=== PATIENT | female | born 1950 | race Caucasian/White ===

== ENCOUNTER 2020-01-17 08:21 | Emergency (ER) | payer OTHER ==
[2020-01-17] MEDS ORDERED: ONDANSETRON 4 MG/2 ML VIAL ONE (08:44)
[2020-01-17] MEDS ORDERED: NA CHLORIDE 0.9% 1,000 ML ONE (08:44)
[2020-01-17 08:53] LABS: Absolute Lymphocytes (CBC) 1.6 K/uL (0.7-4.9); Basophils % 0.5 % (0-1.3); Hematocrit 25.2 % (36.0-45.0); Lymphocytes % 12.7 % (15.3-44.8); MPV 10.7 fL (7.6-11.3); RBC Red Blood Cell Count 2.67 M/uL (3.86-4.86)
[2020-01-17 09:00] LABS: Albumin 2.8 g/dL (3.4-5.0); Bilirubin Direct 0.1 mg/dL (0-0.2); Bilirubin Total 0.3 mg/dL (0.2-1.0); Potassium 4.4 mmol/L (3.5-5.1); Protein, Total 5.5 g/dL (6.4-8.2)
[2020-01-17] MEDS ORDERED: NA CHLORIDE 0.9% 500 ML ONE (09:02)
[2020-01-17] MEDS ORDERED: NA CHLORIDE 0.9% 250 ML ONE (09:09)
--- NOTE | 2020-01-17 09:42 | ER ---
Nurse's Notes [facility] [place] Name: Marah Lee Age: 69 yrs Sex: Female : 1950 Arrival Date: 01/17/2020 Time: 08:23 Bed 2 Private MD: Diagnosis: Rectal bleeding;Anemia, unspecified;Hypotension, unspecified;Syncope and collapse Presentation: 01/16 08:24 Coronavirus screen: Patient denies a cough. Patient denies shortness of breath or jl7 difficulty breathing. Patient denies measured and/or subjective temperature greater than 100.4F prior to today's visit. Patient denies travel on a cruise ship or to a country the [facility] currently lists as an affected area. Patient denies contact with known and/or suspected case of COVID-19. Proceed with normal triage. Ebola Screen: No symptoms or risks identified at this time. Initial Sepsis Screen: Does the patient meet any 2 criteria? Temp <36.0*C (96.8*F)) or > 38.3*C (100.9*F). Systolic BP < 90 mmHg. Mean Arterial Pressure (MAP) < 65. Yes Does the patient have a suspected source of infection? No. Patient's initial sepsis screen is negative. Risk Assessment: Do you want to hurt yourself or someone else? Patient reports no desire to harm self or others. Onset of symptoms was January 17, 2020. Care prior to arrival: Medication(s) given: Normal saline infusion, 1000 mL, IV initiated. 18 GA, in the right antecubital area. Transition of care: patient was not received from another setting of care. 08:24 Method Of Arrival: EMS: [facility] 7 08:24 Acuity: GIANCARLO 2 jl7 08:24 Chief complaint: Patient states: Pt presents via EMS with reports of syncope and rectal jr10 bleeding. Pt reports that she had a colonoscopy procedure with polyp removal on Thursday, started having bleeding at 0300 this morning. Pt is pale in appearance upon arrival. Triage Assessment: 08:24 General: Appears uncomfortable, pale in appearance. Behavior is calm, cooperative. jr10 Pain: Denies pain. Historical: - Allergies: 09:36 PENICILLINS; jr10 09:36 Iodine; jr10 09:52 SUCCINYLCHOLINE; jr10 - Home Meds: 09:52 metformin Oral [Active]; levothyroxine oral [Active]; jr10 - PMHx: 09:36 Atrial Fib; Diabetes - NIDDM; Diverticulitis; jr10 - PSHx: 09:52 Ablasion; Colonoscopy with poly removal; jr10 - Immunization history:: Adult Immunizations. - Social history:: Smoking status: unknown. - Family history:: not pertinent. - Hospitalizations: : No recent hospitalization is reported. Screenin:32 Abuse screen: Denies threats or abuse. Denies injuries from another. Nutritional jr10 screening: No deficits noted. Tuberculosis screening: No symptoms or risk factors identified. Fall Risk Fall in past 12 months (25 points). IV access (20 points). Gait- Weak (10 pts.). Assessment: 08:24 General: Appears uncomfortable, Behavior is appropriate for age. Pain: Denies pain. jr10 Neuro: Reports weakness generalized. Cardiovascular: No deficits noted. Denies chest pain. Respiratory: Denies shortness of breath. GI: Abdomen is non-distended, Rectal exam: Bleeding noted, Bowel sounds present X 4 quads. Abd is soft and non tender Reports rectal bleeding, bloody stool, nausea, Patient currently denies abdominal pain. : No deficits noted. Derm: Skin is pale. Musculoskeletal: Reports weakness in generalized pain in anterior aspect of right shoulder and posterior aspect of right shoulder and pain with ROM no deformity noted. 13:14 Reassessment: See blood transfusion documentation for additional vitals. jr10 Vital Signs: 08:24 BP 87 / 46; Pulse 86; Resp 20; Temp 95.6; Pulse Ox 97% ; Weight 77.11 kg; Pain 3/10; jl7 09:49 BP 108 / 50; Pulse 73; Resp 16; Temp 97.1; Pulse Ox 99% on R/A; jr10 12:58 BP 130 / 68; Pulse 82; Resp 16; Temp 97.9; Pulse Ox 100% on R/A; jr10 ED Course: 08:23 Patient arrived in ED. rn 08:23 Harrison Fernando MD is Attending Physician. rn 08:24 Arm band placed on right wrist. jl7 08:30 Triage completed. jl7 08:30 Inserted saline lock: 20 gauge in left wrist, using aseptic technique. jr10 08:30 Maintain EMS IV. Dressing intact. Good blood return noted. Site clean \T\ dry. Gauge \T\ jr 10 site: 18G to right AC, started via EMS [employer]. 08:34 Ernestina Cobos is Primary Nurse. jr10 08:50 Consent for blood and/or blood product transfusion explained by staff, signed by jr10 patient. 09:02 Patient has correct armband on for positive identification. Placed in gown. Bed in low mh5 position. Call light in reach. Side rails up X2. Warm blanket given. Pillow given. monitoring tech on. Pulse ox on. NIBP on. 09:02 EKG done, by ED staff, reviewed by Harrison Fernando MD. mh5 09:03 attempted transfer to [facility], pt was denied due to lack of imu bd beds,. 09:03 attempting transfer to [facility]. bd 09:36 CT Abd/Pelvis - Without Contrast In Process Unspecified. EDMS 09:52 XRAY Shoulder RIGHT 2 view In Process Unspecified. EDMS 09:53 pt accepted in transfer to [facility]. pt accepted by dr Barragan. bd 09:54 acceptance given by Yanna Snow. bd 11:27 Report handed off to CARLOS EDUARDO Murray at [facility] pending patient transfer. jr10 13:13 Patient transferred, IV remains in place. intact, No redness/swelling at site. jr10 Administered Medications: 08:30 Drug: NS 0.9% 1000 ml Route: IV; Rate: 1 bolus; Site: left wrist; jr10 11:21 Follow up: Response: No adverse reaction; IV Status: Completed infusion jr10 08:35 Drug: Zofran (Ondansetron) 4 mg Route: IVP; Site: right antecubital; jr10 09:37 Follow up: Response: No adverse reaction jr10 09:38 Not Given (Physician Discretion): NS 0.9% 500 ml IV at bolus once jl7 Medication: 08:55 Blood products: PRBCs X 2 units given. jr10 Outcome: 09:41 ER care complete, transfer ordered by . rn 13:12 Transferred by ground EMS to [facility]. jr10 13:12 Condition: improved 13:12 Instructed on the need for transfer. 13:15 Patient left the ED. jr10 Signatures: Dispatcher [employer] EDMS DirriLeigha naylor Roman, MD MD rn Martinez, Maria 5 Yenny Hennessy RN RN jl7 Ernestina Cobos RN RN jr10 Corrections: (The following items were deleted from the chart) 13:03 12:58 BP 130 / 68; Pulse 82bpm; Resp 16bpm; Pulse Ox 100% RA; jr10 jr10
--- NOTE | 2020-01-17 09:42 | EDPHYS ---
Physician Documentation [facility] [place] Name: Marah Lee Age: 69 yrs Sex: Female : 1950 Arrival Date: 01/17/2020 Time: 08:23 Bed 2 Private MD: ED Physician Harrison Fernando HPI: 01/16 08:25 This 69 yrs old Female presents to ER via Unassigned with complaints of GI rn bleed, syncope. 08:25 The patient presents to the emergency department with rectal bleeding. Onset: The rn symptoms/episode began/occurred just prior to arrival. Abdominal pain: none is appreciated. Associated signs and symptoms: Pertinent positives: syncope, Pertinent negatives: chest pain, fever. Severity of symptoms: At their worst the symptoms were moderate in the emergency department the symptoms are unchanged. The patient has not experienced similar symptoms in the past. The patient has been recently seen by a physician:. Reports had screening colonoscopy last Thursday, had 4 polyps removed, takes aspirin, reports feeling a little weak lately, but this AM, soiled herself, had large bloody bowel movement, + nausea. Reports bent over to change panties, and passed out. called 911. . Historical: - Allergies: 09:36 PENICILLINS; jr10 09:36 Iodine; jr10 09:52 SUCCINYLCHOLINE; jr10 - Home Meds: 09:52 metformin Oral [Active]; levothyroxine oral [Active]; jr10 - PMHx: 09:36 Atrial Fib; Diabetes - NIDDM; Diverticulitis; jr10 - PSHx: 09:52 Ablasion; Colonoscopy with poly removal; jr10 - Immunization history:: Adult Immunizations. - Social history:: Smoking status: unknown. - Family history:: not pertinent. - Hospitalizations: : No recent hospitalization is reported. ROS: 08:25 Constitutional: Negative for fever, chills, and weight loss, Eyes: Negative for injury, rn pain, redness, and discharge, Cardiovascular: Negative for chest pain, palpitations, and edema, Respiratory: Negative for shortness of breath, cough, wheezing, and pleuritic chest pain, Abdomen/GI: Negative for abdominal pain, and constipation MS/Extremity: Negative for injury and deformity, Skin: Negative for injury, rash, and discoloration, Neuro: Negative for headache, numbness, tingling, and seizure. Exam: 08:25 Constitutional: This is a well developed, well nourished patient who is awake, alert, rn appears pale Head/Face: Normocephalic, atraumatic. Eyes: Pale conjunctivae ENT: dry MM Cardiovascular: Regular rate and rhythm. No pulse deficits. Respiratory: No increased work of breathing, no retractions or nasal flaring. Abdomen/GI: soft, non-tender MS/ Extremity: Pulses equal, no cyanosis. Neurovascular intact. Full, normal range of motion. Equal circumference. Neuro: Awake and alert, GCS 15 10:38 ECG was reviewed by the Attending Physician. rn Vital Signs: 08:24 BP 87 / 46; Pulse 86; Resp 20; Temp 95.6; Pulse Ox 97% ; Weight 77.11 kg; Pain 3/10; jl7 09:49 BP 108 / 50; Pulse 73; Resp 16; Temp 97.1; Pulse Ox 99% on R/A; jr10 12:58 BP 130 / 68; Pulse 82; Resp 16; Temp 97.9; Pulse Ox 100% on R/A; jr10 MDM: 08:24 Patient medically screened. rn 08:39 ED course: Pt with large bloody bowel movement here, with clots, BP low, 2 units O- rn ordered for transfusion in addition to fluids. . 08:57 ED course: Hemoglobin 8.5, initiated transfer to [facility] for DrAria De Luna since he did procedure there and no GI coverage here. . 09:21 Differential diagnosis: Intestinal bleeding, bleeding form polyp removal. rn 09:40 Data reviewed: vital signs, nurses notes, lab test result(s), EKG, and as a result, I rn will admit patient. Counseling: I had a detailed discussion with the patient and/or guardian regarding: the historical points, exam findings, and any diagnostic results supporting the discharge/admit diagnosis, lab results, the need to transfer to another facility, for higher level of care, [facility] does not immediately have the required specialist. Response to treatment: the patient's symptoms have mildly improved after treatment. 09:40 ED course: BP improving with fluids/blood, accepted for transfer to IMU.. rn 01/16 08:25 Order name: Basic Metabolic Panel; Complete Time: 09:01 rn 01/16 08:25 Order name: CBC with Diff; Complete Time: 08:55 rn 01/16 08:25 Order name: Hepatic Function; Complete Time: 09:01 rn 01/16 08:25 Order name: Lipase; Complete Time: 09:01 rn 01/16 08:25 Order name: Type And Screen rn 01/16 08:45 Order name: Packed RBC Leukored EDDE 01/16 08:25 Order name: IV Saline Lock; Complete Time: 08:35 rn 01/16 08:25 Order name: EKG; Complete Time: 08:26 rn 01/16 08:25 Order name: CT Abd/Pelvis - Without Contrast; Complete Time: 10:26 rn 01/16 08:45 Order name: RBC Leukored Pheresis [facility] 01/16 09:01 Order name: XRAY Shoulder RIGHT 2 view; Complete Time: 10:26 rn 01/16 08:25 Order name: Labs collected and sent; Complete Time: 08:35 rn 01/16 08:25 Order name: EKG - Nurse/Tech; Complete Time: 09: rn EC:38 Rate is 82 beats/min. Rhythm is regular. QRS [place] is Normal. [place] interval is normal. QRS rn interval is normal. QT interval is normal. No Q waves. T waves are Normal. No ST changes noted. Clinical impression: Normal ECG. Interpreted by me. Reviewed by me. Administered Medications: 08:30 Drug: NS 0.9% 1000 ml Route: IV; Rate: 1 bolus; Site: left wrist; jr10 11:21 Follow up: Response: No adverse reaction; IV Status: Completed infusion jr10 08:35 Drug: Zofran (Ondansetron) 4 mg Route: IVP; Site: right antecubital; jr10 09:37 Follow up: Response: No adverse reaction jr10 09:38 Not Given (Physician Discretion): NS 0.9% 500 ml IV at bolus once jl7 Disposition: 01/17/20 09:[address] [facility]. Diagnosis are Rectal bleeding, Anemia, unspecified, Hypotension, unspecified, Syncope and collapse. - Reason for transfer: Higher level of care. - Accepting physician is . - Condition is Fair. - Problem is new. - Symptoms have improved. Critical care time excluding procedures: 09:40 Critical care time: Bedside Care: 25 minutes, Consultation: 5 minutes. Total time: 30 rn minutes Signatures: Dispatcher [employer] EDHarrison Mcgregor MD MD rn Yenny eHnnessy, RN RN jl7 Ernestina Cobos RN RN jr10 Corrections: (The following items were deleted from the chart) 13:15 09:41 01/17/2020 09:[address] [facility]. Diagnosis is Rectal jr10 bleeding; Anemia, unspecified; Hypotension, unspecified; Syncope and collapse. Reason for transfer: Higher level of care. Accepting physician is . Condition is Fair. Problem is new. Symptoms have improved. rn
--- NOTE | 2020-01-17 09:59 | RAD REPORT ---
EXAM DESCRIPTION: CT - Abdomen Pelvis Wo Contrast - 01/17/2020 9:36 am CLINICAL HISTORY: recent colonoscopy, GI bleed, syncope COMPARISON: No comparisons TECHNIQUE: Axial [address] imaging of the abdomen and pelvis was performed without IV contrast. No IV contrast was given because of allergy, abnormal renal function, patient refusal or physician re quest. Oral contrast was given. All CT scans are performed using dose optimization technique as appropriate and may include automated exposure control or mA/KV adjustment according to patient size. FINDINGS: No suspicious findings in the lung bases. The liver, spleen and pancreas show no suspicious findings on non-contrast imaging. Gallbladder is ab sent. No biliary tree dilatation. No hydronephrosis or suspicious renal mass. A 3.7 centimeter cyst is present in the medial upper pole left kidney. A nonobstructing 6 mm calcification present right lower pole calyx. No significant adre nal finding. Isodense renal masses and pyelonephritis cannot be excluded in the absence of IV contras t. The urinary bladder is without significant finding. Uterus is absent. Ovaries are absent or atroph ic. No adnexal mass. No stomach or small bowel abnormality seen. Minimal hiatal hernia is present. Colon is decompressed. Patient has a minimal diverticulosis pattern throughout the colon with a more mild to moderate divert iculosis pattern in the sigmoid colon. No colon wall thickening or mass. No abnormality to explain re ctal bleeding. Small mucosal level injuries or inflammatory changes can be occult on CT imaging. No free air, free fluid or inflammatory stranding. No hernia, mass or bulky lymphadenopathy. Bony degenerative changes are present. Patient has extensive postsurgical change L2-L5. IMPRESSION: Colonic diverticulosis without diverticulitis. No acute colon finding seen. Mild mucosal level injury or inflammatory change can be occult on CT imaging. Solid abdominal visceral or without suspicious finding on noncontrast imaging. Full assessment is limited is the absence of IV contrast.
--- NOTE | 2020-01-17 10:17 | RAD REPORT ---
EXAM DESCRIPTION: Shoulder Right 2 View - 01/17/2020 9:51 am CLINICAL HISTORY: fall;Pain COMPARISON: Abdomen Pelvis W Contrast dated 01/13/2020No comparisons TECHNIQUE: Internal and external rotation views of the right shoulder were obtained. FINDINGS: There is no fracture or dislocation. AC joint degenerative changes are present. Small spu rs present along the inferior margin of the acromion and the clavicle. There are capsule calcificatio ns along the superior aspect. Small calcification is seen near the greater tuberosity likely from dinorah cific tendinosis. Acromial humeral joint space is normal. Right hemithorax shows no acute finding. IMPRESSION: Shoulder joint degenerative changes are present as detailed. No fracture, dislocation or acute finding seen.
--- OUTSIDE RECORDS SUMMARY | 2020-01-17 11:01 | XMS REPORT | Clinical Summary ---
:1950 Author Organization [facility] Address [address] [place] [address] Care Team Providers Name Role Phone Wyatt Fitzgerald MD Primary Care Provider Allergies Active Allergy Reactions Severity Noted Date Comments Iodinated Contrast Media Other (See Comments) 08/15/19 na Penicillins Other (See Comments) 08/15/2019 na Succinylcholine Other (See Comments) 08/15/2019 na Medications Medication Sig Dispensed Refills Start Date End Date Status apixaban (ELIQUIS) Take 2.5 mg 0 Active 2.5 mg by mouth 2 tabletIndications: (two) times a Resume 08/25/19 day. amIODarone Take 200 mg 0 Active (PACERONE) 200 MG by mouth tablet daily. metFORMIN Take 1,000 mg 0 Active (GLUCOPHAGE) 1,000 by mouth 2 mg tablet (two) times a day with meals. glimepiride Take 2 mg by 0 Activ e (AMARYL) 2 MG mouth 2 (two) tablet times a day. SITagliptin Take 100 mg 0 Active (JANUVIA) 100 MG by mouth tablet daily. furosemide (LASIX) Take 20 mg by 0 Active 20 mg tablet mouth 2 (two) times a day. atorvastatin Take 10 mg by 0 Act jennifer (LIPITOR) 10 MG mouth daily. tablet levothyroxine Take 75 mcg 0 Acti ve (SYNTHROID) 75 mcg by mouth tablet daily. magnesium chloride Take 2 0 A ctive (SLOW-MAG) 71.5 mg tablets by tablet,delayed mouth 2 (two) release (DR/EC) times a day. potassium chloride Take 1 tablet 0 Active (KLOR-CON M10 ORAL) by mouth 2 (two) times a day. pantoprazole Take 40 mg by 0 Act jennifer (PROTONIX) 40 MG EC mouth daily. tablet sucralfate Take 1 g by 0 Active (CARAFATE) 1 gram mouth 4 tablet (four) times a day. azithromycin Take 250 mg 0 08/11/2019 Disc ontinued (ZITHROMAX) 250 MG by mouth 0 ( Stop Taking at tablet daily. Take 2 Discha rge) tablets the first day, then 1 tablet daily for 4 days. ondansetron ODT Take 1 tablet 15 tablet 0 08/19/2019 (ZOFRAN-ODT) 4 MG (4 mg total) 0 disintegrating by mouth tablet every 8 (eight) hours as needed for nausea or vomiting for up to 5 days. Active Problems Problem Noted Date Upper abdominal pain 08/15/2019 Choledocholithiasis 08/15/2019 Encounters Date Type Specialty Care Team Description 11/01/2019 Transcribe Access Edionwe, Encounter for o ther Orders Kaylene preprocedural e xamination MD Jose Luis (Primary Dx) 08/18/2019 Anesthesia Event Gastroenterology She Solano MD 08/18/2019 Surgery Gastroenterology Lee, ERCP WITH S jeneroPee ralph, Balloon sweep f or stone MD removal 08/15/2019 Hospital General Internal [place], Choledochol ithiasis (Primary Dx); - Encounter Medicine Apolol Mattson Right upper saeid drant abdominal pain 08/19/2019 KANDACE, Hellen Guidry MD Posani, Karuna, MD after 01/16/2019 Social History Tobacco Use Types Packs/Day Years Used Date Never Smoker Smokeless Tobacco: Never Used Alcohol Use Drinks/Week oz/Week Comments Not Currently Sex Assigned at Date Recorded Not on file Job Start Date Occupation Industry Not on file Not on file Not on file Travel History Travel Start Travel End No recent travel history available. Last Filed Vital Signs Vital Sign Reading Time Taken Comments Blood Pressure 135/62 08/19/2019 11:45 AM HEDIS ANALYST Pulse 62 08/19/2019 11:45 AM HEDIS ANALYST Temperature 36.8 C (98.3 F) 08/19/2019 11:45 AM HEDIS ANALYST Respiratory Rate 17 08/19/2019 11:45 AM HEDIS ANALYST Oxygen Saturation 99% 08/19/2019 11:45 AM HEDIS ANALYST Inhaled Oxygen Concentration - - Weight 72.6 kg (160 lb) 08/15/2019 3:55 PM HEDIS ANALYST Height 165.1 cm (5' 5") 08/15/2019 3:55 PM HEDIS ANALYST Body Mass Index 26.63 08/15/2019 3:55 PM HEDIS ANALYST Plan of Treatment Health Maintenance Due Date Last Done Comments DIABETIC RETINAL EYE EXAM 1950 DIABETIC FOOT EXAM 1958 URINE MICROALBUMIN 1958 BREAST CANCER SCREENING 1998 COLONOSCOPY SCREENING 1998 SHINGLES VACCINES (#1) 1998 65+ PNEUMOCOCCAL VACCINE (2 of 2 - PPSV23) 08/04/201304/05 INFLUENZA VACCINE 01/28/2020 04/05/2019 Procedures Procedure Name Priority Date/Time Associated Diagnosis Comme nts CORONAVIRUS SARS-COV Routine 11/01/2019 Encounter for other Results for 2 2:00 PM CDT preprocedural examination th is procedure are in the results section. POC GLUCOSE Routine 08/19/2019 Results for 11:47 AM HEDIS ANALYST this procedure are in the results section. POC GLUCOSE Routine 08/19/2019 Results for 7:43 AM HEDIS ANALYST this procedure are in the results section. ESTIMATED GFR Routine 08/19/2019 Results for 6:08 AM HEDIS ANALYST this procedure are in the results section. BASIC METABOLIC PANEL Routine 08/19/2019 Result s for 6:08 AM HEDIS ANALYST this procedure are in the results section. HC COMPLETE BLD COUNT Routine 08/19/2019 Result s for W/AUTO DIFF 6:08 AM HEDIS ANALYST this procedure are in the results section. POC GLUCOSE Routine 08/19/2019 Results for 3:23 AM HEDIS ANALYST this procedure are in the results section. POC GLUCOSE Routine 08/19/2019 Results for 1:06 AM HEDIS ANALYST this procedure are in the results section. POC GLUCOSE Routine 08/18/2019 Results for 8:37 PM HEDIS ANALYST this procedure are in the results section. OR FL < 1 HOUR Routine 08/18/2019 Results for 1:30 PM HEDIS ANALYST this procedure are in the results section. POC GLUCOSE Routine 08/18/2019 Results for 1:28 PM HEDIS ANALYST this procedure are in the results section. ERCP WITH STONE 08/18/2019 Choledocholithiasis REMOVAL 12:49 PM HEDIS ANALYST POC GLUCOSE Routine 08/18/2019 Results for 7:50 AM HEDIS ANALYST this procedure are in the results section. PROTHROMBIN TIME WITH Routine 08/18/2019 Result s for INR 5:50 AM HEDIS ANALYST this procedure are in the results section. PARTIAL Routine 08/18/2019 Results for THROMBOPLASTIN TIME 5:50 AM HEDIS ANALYST this pro cedure (PTT) are in the results section. HEPATIC FUNCTION Routine 08/18/2019 Results for PANEL 5:50 AM HEDIS ANALYST this procedure are in the results section. HC COMPLETE BLD COUNT Routine 08/18/2019 Result s for W/AUTO DIFF 5:50 AM HEDIS ANALYST this procedure are in the results section. POC GLUCOSE Routine 08/18/2019 Results for 3:44 AM HEDIS ANALYST this procedure are in the results section. POC GLUCOSE Routine 08/18/2019 Results for 12:23 AM HEDIS ANALYST this procedure are in the results section. POC GLUCOSE Routine 08/17/2019 Results for 8:32 PM HEDIS ANALYST this procedure are in the results section. POC GLUCOSE Routine 08/17/2019 Results for 4:17 PM HEDIS ANALYST this procedure are in the results section. POC GLUCOSE Routine 08/17/2019 Results for 12:05 PM HEDIS ANALYST this procedure are in the results section. POC GLUCOSE Routine 08/17/2019 Results for 7:37 AM HEDIS ANALYST this procedure are in the results section. ESTIMATED GFR Routine 08/17/2019 Results for 4:25 AM HEDIS ANALYST this procedure are in the results section. HEPATIC FUNCTION Routine 08/17/2019 Results for PANEL 4:25 AM HEDIS ANALYST this procedure are in the results section. BASIC METABOLIC PANEL Routine 08/17/2019 Result s for 4:25 AM HEDIS ANALYST this procedure are in the results section. HC COMPLETE BLD COUNT Routine 08/17/2019 Result s for W/AUTO DIFF 4:25 AM HEDIS ANALYST this procedure are in the results section. POC GLUCOSE Routine 08/17/2019 Results for 4:20 AM HEDIS ANALYST this procedure are in the results section. POC GLUCOSE Routine 08/17/2019 Results for 12:20 AM HEDIS ANALYST this procedure are in the results section. ECG 12-LEAD Routine 08/16/2019 Results for 11:33 PM HEDIS ANALYST this procedure are in the results section. POC GLUCOSE Routine 08/16/2019 Results for 8:11 PM HEDIS ANALYST this procedure are in the results section. POC GLUCOSE Routine 08/16/2019 Results for 4:24 PM HEDIS ANALYST this procedure are in the results section. US HEPATIC Routine 08/16/2019 Results for 12:13 PM HEDIS ANALYST this procedure are in the results section. POC GLUCOSE Routine 08/16/2019 Results for 11:43 AM HEDIS ANALYST this procedure are in the results section. POC GLUCOSE Routine 08/16/2019 Results for 7:48 AM HEDIS ANALYST this procedure are in the results section. POC GLUCOSE Routine 08/16/2019 Results for 5:33 AM HEDIS ANALYST this procedure are in the results section. TROPONIN Timed 08/16/2019 Results for 2:00 AM HEDIS ANALYST this procedure are in the results section. POC GLUCOSE Routine 08/15/2019 Results for 10:04 PM HEDIS ANALYST this procedure are in the results section. TROPONIN Routine 08/15/2019 Results for 8:34 PM HEDIS ANALYST this procedure are in the results section. CT RENAL STONE STAT 08/15/2019 Results for PROTOCOL 6:39 PM HEDIS ANALYST this procedure are in the results section. XR CHEST 1 VW STAT 08/15/2019 Results for PORTABLE 5:36 PM HEDIS ANALYST this procedure are in the results section. ECG ED PRELIMINARY Routine 08/15/2019 Results f or INTERPRETATION 5:15 PM HEDIS ANALYST this procedur e are in the results section. ESTIMATED GFR STAT 08/15/2019 Results for 5:10 PM HEDIS ANALYST this procedure are in the results section. B NATRIURETIC PEPTIDE STAT 08/15/2019 Result s for 5:10 PM HEDIS ANALYST this procedure are in the results section. LIPASE LEVEL STAT 08/15/2019 Results for 5:10 PM HEDIS ANALYST this procedure are in the results section. TROPONIN STAT 08/15/2019 Results for 5:10 PM HEDIS ANALYST this procedure are in the results section. COMPREHENSIVE STAT 08/15/2019 Results for METABOLIC PANEL 5:10 PM HEDIS ANALYST this procedu re are in the results section. PARTIAL STAT 08/15/2019 Results for THROMBOPLASTIN TIME 5:10 PM HEDIS ANALYST this pro cedure (PTT) are in the results section. PROTHROMBIN TIME WITH STAT 08/15/2019 Result s for INR 5:10 PM HEDIS ANALYST this procedure are in the results section. HC COMPLETE BLD COUNT STAT 08/15/2019 Result s for W/AUTO DIFF 5:10 PM HEDIS ANALYST this procedure are in the results section. ECG 12-LEAD STAT 08/15/2019 Results for 3:48 PM HEDIS ANALYST this procedure are in the results section. after 01/16/2019 Results Coronavirus SARS-CoV 2 (11/01/2019 2:00 PM CDT) SARS-CoV-2 source Nasopharyngeal [facility] Comment: Corrected result; previously reported as Nasopha ryngeal Swab on 11/01/2019 at 13:59 by V/AUT SARS-CoV-2 by PCR Not Detected [facility] Comment: NOT DETECTED - A negative result does not rule out the presence of PCR inhibitors in the patient specimen or assay specif ic nucleic acid in concentrations below the level of detection by the assay. INTERPRETIVE INFORMATION: 2019 Novel Coronavirus SARS- CoV-2 by PCR This test should be ordered for the detection of the 2 019 novel coronavirus SARS-CoV-2 in individuals who meet SARS-Co V-2 clinical and/or epidemiological criteria. The 2019 Novel Coronavirus SARS-CoV-2 by PCR test is f or in vitro diagnostic use under the FDA Emergency Use Authorizati on (EUA) for US laboratories certified under CLIA to perform high c omplexity tests. This test has not been FDA cleared or approved. In compliance with this authorization, please visit [email or web address] for more information and to access the applicable information s hekatelyn. Performed by [facility], [address] [place] [id number] [email or web address], Donte Singh MD, Lab. Director Specimen Performing Organization Address City/State/Zipcode Phone Number [facility] [address] [place] [address] [facility] [address] [place] [address] POC glucose (08/19/2019 11:47 AM HEDIS ANALYST)Only the most recent of21 resultswithin the time period is included. [facility] POC glucose 180 (H) 65 - 99 mg/dL [facility] Comment: [facility] Cyber Systems Administrator Name: [id number] Device ID: [id number] Chartable: RN Notified Specimen Performing Organization Address City/State/Zipcode Phone Number [facility] DEPARTMENT OF PATHOLOGY [address] [facility], [place] [address] AND GENOMIC MEDICINE [facility] [address] [facility] [place] [address] [facility] Estimated GFR (08/19/2019 6:08 AM HEDIS ANALYST)Only the most recent of3 resultswithin the time period is included. [facility] Estimated GFR 70 mL/min/1.73 [facility] Comment: m2 [facility] [employer] Units Interpretation HOS PITAL G1 >=90 Normal or high G2 60-89 Mildly decreased G3a 45-59 Mildly to moderately decreas ed G3b 30-44 Moderately to severely decre ased G4 15-29 Severely decreased G5 <15 Kidney failure The eGFR was calculated using the Chronic Kidney Disea se Epidemiology Collaboration (CKD-EPI) equation. Interpretation is based on recommendations of the National Kidney Foundation-Kidney Disease Outcomes Saeid lity Initiative (NKF-KDOQI) published in 2014. Specimen Plasma specimen Performing Organization Address [facility]/Zipcode Phone Number [facility] DEPARTMENT OF PATHOLOGY [address] [facility] [place] [address] AND GENOMIC MEDICINE [facility] [address] [facility] [place] [address] HOSPITAL CBC with platelet and differential (08/19/2019 6:08 AM HEDIS ANALYST)Only the most recent of4 resultswithin the time period is included. WBC 7.0 4.5 - 11.0 k/uL [facility] RBC 3.89 (L) 4.20 - 5.50 [facility] m/uL [facility] HGB 11.8 (L) 12.0 - 16.0 [facility] g/dL [facility] HCT 36.1 (L) 37.0 - 47.0 % [facility] MCV 92.8 82.0 - 100.0 fL [facility] MCH 30.3 27.0 - 34.0 pg [facility] MCHC 32.7 31.0 - 37.0 [facility] g/[facility] RDW - SD 52.3 37.0 - 55.0 fL [facility] MPV 12.1 (H) 6.9 - 11.0 fL [facility] Platelet count 198 150 - 400 K/uL [facility] Nucleated RBC 0.00 /100 WBC [facility] Neutrophils 55.7 39.0 - 69.0 % [facility] Lymphocytes 31.8 25.0 - 45.0 % [facility] Monocytes 9.0 0.0 - 10.0 % [facility] Eosinophils 2.4 0.0 - 5.0 % [facility] Basophils 1.0 0.0 - 1.0 % [facility] Immature granulocytes 0.1 0.0 - 1.0 % [facility] Specimen Blood Performing Organization Address City/[facility]/Zipcode Phone Number [facility] DEPARTMENT OF PATHOLOGY [id number] [place] [address] [id number] [place] [address] Basic metabolic panel (08/19/2019 6:08 AM HEDIS ANALYST)Only the most recent of2 results within the time period is included. Pathologist Sig nature Sodium 140 135 - 148 mEq/L [facility] Potassium 3.6 3.5 - 5.0 mEq/L [facility] Chloride 103 98 - 112 mEq/L [facility] CO2 24 24 - 31 mEq/L [facility] Anion gap 13@ANIO 7 - 15 mEq/L [facility] BUN 7 (L) 8 - 23 mg/dL [facility] Creatinine 0.84 0.50 - 0.90 mg/dL [facility] Glucose 148 (H) 65 - 99 mg/dL [facility] Calcium 9.4 8.8 - 10.2 mg/dL [facility] Specimen Plasma specimen Performing Organization Address [facility]/Zipcode Phone Number [facility] DEPARTMENT OF PATHOLOGY [id number] [place] [address] [address] [address] HOSPITAL [place] < 1 Hour (08/18/2019 1:30 PM HEDIS ANALYST) Specimen Narrative Performed At EXAMINATION: OR FL < 1 HOUR [facility] C-arm fluoroscopy was requested in OR. IMPRESSION: Separate operative report will be issued by the physic chrissy performing the procedure. [id number] Procedure Note Interface, Radiology Results Incoming - 08/29/2019 9:44 AM HEDIS ANALYST EXAMINATION: OR FL < 1 HOUR C-arm fluoroscopy was requested in OR. IMPRESSION: Separate operative report will be issued by the physician performing the procedure. [id number] Performing Organization Address City/State/Zipcode Phone Number [facility] [address] [place] [address] Partial thromboplastin time, activated (08/18/2019 5:50 AM HEDIS ANALYST)Only the most recent of2 resultswithin the time period is included. PTT 32.2 23.0 - 36.0 [facility] Comment: [facility] PTT therapeutic range for unfractionated heparin is HOSPITAL 61.0-112.0 seconds which corresponds to Anti-Xa 0.3-0.7 U/ml. Specimen Blood Performing Organization Address City/[facility]/Zipcode Phone Number [facility] DEPARTMENT OF PATHOLOGY [address] [place] [address] [address] [place] [address] HOSPITAL Prothrombin time with INR (08/18/2019 5:50 AM HEDIS ANALYST)Only the most recent of2 resultswithin the time period is included. Prothrombin time 14.4 11.5 - 14.5 [facility] INR 1.1 [facility] [place] Comment: [facility] International Normalized Ratio (INR) is a [facility] monitoring tool for patients who are stable on oral anticoagulant therapy. An INR of 2.0-3.0 is suggested for deep vein thrombosis/pulmonary embolism. Specimen Blood Performing Organization Address [facility] Phone Number [facility] DEPARTMENT OF PATHOLOGY [address] [place] [address] Hepatic function panel (08/18/2019 5:50 AM HEDIS ANALYST)Only the most recent of2 results within the time period is included. Pathologist Sig nature Albumin 3.5 3.5 - 5.0 g/dL [facility] Total bilirubin 0.6 0.2 - 1.2 mg/dL [facility] Bilirubin direct <0.2 0.0 - 0.3 mg/dL [facility] Alkaline phosphatase 69 35 - 104 U/L [facility] Protein 5.8 (L) 6.3 - 8.3 g/dL [facility] ALT 93 (H) 5 - 50 U/L [facility] AST 69 (H) 10 - 35 U/L [facility] Specimen Plasma specimen Performing Organization Address City/[facility]/Zipcode Phone Number [facility] DEPARTMENT OF PATHOLOGY [address] [place] [address] [address] [facility] ECG 12 lead (08/16/2019 11:33 PM HEDIS ANALYST)Only the most recent of2 resultswithin the time period is included. Pathologist Sig nature Ventricular rate 54 [facility] Atrial rate 54 [facility] [place] interval 144 [facility] QRSD interval 84 [facility] QT interval 484 [facility] QTC interval 458 [facility] P axis 1 61 [facility] QRS axis 1 14 [facility] T wave axis 92 [facility] EKG impression Sinus bradycardia-Low voltag e QRS-Cannot rule out Anterior infarct , age undetermined-Abnormal ECG-In automated comparison with ECG of 15-AUG-2019 15:48,-Minimal criteria for Anterior infarct are now pr [facility] esent- Specimen Narrative Performed At This result has an attachment that is no t available. Performing Organization Address City/State/Zipcode Phone Number [facility] MUSE [address] [place] [address] [place] Hepatic (08/16/2019 12:13 PM HEDIS ANALYST) Specimen Narrative Performed At EXAMINATION: US HEPATIC [facility] CLINICAL HISTORY: abdnormal CT- cirrho sis COMPARISON: CT abdomen pelvis without contrast from 08/15/2019 IMPRESSION: Liver: The liver is mildly enlarged measuring 15.4 cm in greatest craniocaudal dimension. There is a nonspecific coarse echotexture, however, the contour is smooth. No intrahepatic biliar y ductal dilatation or hepatic mass. Portal vein: The portal vein is normal in size and dem onstrates normal hepatopedal flow. The diameter of the po rtal vein measures 1.1 cm. Gallbladder: The patient is status post cholecystectomy. Common bile duct: Common bile duct measures 0.8 cm whi ch is prominent, however, likely within normal limits giv en cholecystectomy. Ascites: None Right pleural effusion: None [id number] Procedure Note Interface, Radiology Results Incoming - 08/16/2019 1:16 PM HEDIS ANALYST EXAMINATION: US HEPATIC CLINICAL HISTORY: abdnormal CT- cirrhos is COMPARISON: CT abdomen pelvis without c ontrast from 08/15/2019 IMPRESSION: Liver: The liver is mildly enlarged zan uring 15.4 cm in greatest craniocaudal dimension. There is a nonspecific coarse echotexture, however, the contour is smooth. No intrahepatic biliary ductal dilatation or hepatic mass. Portal vein: The portal vein is normal i n size and demonstrates normal hepatopedal flow. The diameter of the portal vein measures 1.1 cm. Gallbladder: The patient is status post cholecystectomy. Common bile duct: Common bile duct measu res 0.8 cm which is prominent, however, likely within normal limits given cholecystectomy. Ascites: None Right pleural effusion: None [facility]-[id number] Performing Organization Address City/State/Zipcode Phone Number [facility] [address] [place] [address] Troponin (08/16/2019 2:00 AM HEDIS ANALYST)Only the most recent of3 resultswithin the time period is included. Troponin 0.009 0.000 - 0.040 [place] [facility] Comment: ng/mL [facility] In patients suspected of having a myocardial infarctio n, along with all other appropriate clinical measures and actions includ ing ECG and other diagnostics as appropriate, measure Ultra TnI at 0 hrs and at 3 hrs. Myocardial infarction VERY LIKELY The 0 hr TnI level is > 0.10 ng/mL Myocardial infarction LIKELY The 0 hr TnI level is > 0.04 ng/mL and 3 hr level is i ncreased or decreased by at least 0.020 ng/mL Myocardial infarction VERY UNLIKELY Both the 0 hr and 3 hr TnI levels <= 0.04 ng/mL(within normal limits) OR 0 hr is > 0.04 ng/mL and 3 hr is increased OR decreased by less than 0.020 ng/mL Specimen Plasma specimen Performing Organization Address City/State/Zipcode Phone Number [facility] DEPARTMENT OF PATHOLOGY [address] [facility] [address] [place] [address] AND GENOMIC MEDICINE [facility] MARIEL [place]ELARDE [address] [facility] [place] [address] [facility] CT Renal Stone Protocol (08/15/2019 6:39 PM HEDIS ANALYST) Specimen Narrative Performed At EXAMINATION: CT RENAL STONE PROTOCOL [facility] CLINICAL HISTORY: Epigastric pain re cent cholecystectomy TECHNIQUE: Noncontrast images of the abdomen and pelvi s were obtained without intravenous iodinated contrast. The lack of in travenous contrast limits assessment of the solid organs. CT imaging was performed with iterative reconstruction technique and/o r automated exposure control to reduce rad iation dose. COMPARISON: None available FINDINGS: LOWER THORAX: Clear lung bases. Small left lingular calcified granul tez. Mitral an aortic annular calcifications are present. Coronary ca lcifications are seen in the left main, LAD distributions . ABDOMEN: Kidneys: 5 mm calculus is seen in the right lower pole . No hydronephrosis. A 3.4 cm simple cyst is seen in the me dial left upper pole. A tiny 2 mm focus of calcification is seen in th e left upper pole adjacent to the lateral aspect of the si mple cyst, could be calyceal or vascular, however n o hydronephrosis. Liver: Mildly lobulated hepatic contour. Borderline hy perdense appearance of the liver, could be second yunior to amiodarone. Gallbladder: Cholecystectomy. Tiny calculi (at least 3 ) are seen in the distal CBD measuring up to 4 mm. CBD deborah sures 11 mm. Spleen: Spleen is normal in size. Small calcified gran ulomas are seen. Prominent perisplenic varices/splenorena l shunt seen. Pancreas: The pancreas is unremarkable. Adrenal Glands: The adrenal glands are u nremarkable. Abdominal Aorta: Aortoiliac calcificatio ns. Nodes: A few prominent retroperitoneal lymph nodes are noted which are nonspecific. Bowel: Small hiatal hernia. No bowel obstruction or in flammation. Diverticulosis without evidence of diverticulitis. Lonnie endix is borderline in size, however without significant periap pendiceal stranding to suggest acute appendicitis. Ascites: No ascites or fluid collections . PELVIS: Pelvis: Urinary bladder is unremarkable. Hysterectomy. Bones: Degenerative changes of the osseous structures. No suspicious lesions. Postoperative changes from L2-L5 related to p osterior decompression and instrument fusion. The right L5 mcconnell spedicular screw is fractured. Prominent endplate scleros is at T10-11. L2 compression fracture with 30% body height l oss and vertebral augmentation changes. IMPRESSION: 1.Cholecystectomy with tiny calculi in the distal CBD compatible with choledocholithiasis. 2.Mildly lobulated hepatic contour, prominent perisple cheo varices, and possible splenorenal shunt noted, suboptimally evaluat ed on noncontrast exam. CT with contrast or abdominal ultrasound may be of benefit for further evaluation. 3.Right nonobstructive nephrolithiasis. 4.Small hiatal hernia. Diverticulosis wi thout diverticulitis. 5.Postoperative changes of the lower lumbar spine with a fractured screw at L5. [id number] Procedure Note Hm Interface, Radiology Results Incoming - 08/15/2019 7:08 PM HEDIS ANALYST EXAMINATION: CT RENAL STONE PROTOCOL CLINICAL HISTORY: Epigastric pain rece nt cholecystectomy TECHNIQUE: Noncontrast images of the abd omen and pelvis were obtained without intravenous iodinated contrast. The lack of intravenous contrast limits assessment of the solid organs. CT imaging was performed with iterative reconstruction technique and/o r automated exposure control to reduce rad iation dose. COMPARISON: None available FINDINGS: LOWER THORAX: Clear lung bases. Small left lingular ca lcified granuloma. Mitral an aortic annular calcifications are present. Coronary calcifications are seen in the left main, LAD distributions. ABDOMEN: Kidneys: 5 mm calculus is seen in the ri ght lower pole. No hydronephrosis. A 3.4 cm simple cyst is seen in the medial left upper pole. A tiny 2 mm focus of calcification is seen in the left upper pole adjacent to the lateral aspect of the simple cyst, could be calyceal or vascular, however n o hydronephrosis. Liver: Mildly lobulated hepatic contour. Borderline hyperdense appearance of the liver, could be secondary to amiodarone. Gallbladder: Cholecystectomy. Tiny calcu li (at least 3) are seen in the distal CBD measuring up to 4 mm. CBD measures 11 mm. Spleen: Spleen is normal in size. Small calcified granulomas are seen. 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 Pancreas: The pancreas is unremarkable. Adrenal Glands: The adrenal glands are u nremarkable. Abdominal Aorta: Aortoiliac calcificatio ns. Nodes: A few prominent retroperitoneal l ymph nodes are noted which are nonspecific. Bowel: Small hiatal hernia. No bowel obs truction or inflammation. Diverticulosis without evidence of diverticulitis. Appendix is borderline in size, however without significant periappendiceal stranding to suggest acute appendicitis. Ascites: No ascites or fluid collections . PELVIS: Pelvis: Urinary bladder is unremarkable. Hysterectomy. Bones: Degenerative changes of the osseo us structures. No suspicious lesions. Postoperative changes from L2-L5 related to posterior decompression and instrument fusion. The right L5 transpedicular screw is fractured. Prominent endplate sclerosis at T10-11. L2 compression fracture with 30% body height loss and vertebral augmentation changes. IMPRESSION: 1.Cholecystectomy with tiny calculi in t he distal CBD compatible with choledocholithiasis. 2.Mildly lobulated hepatic contour, prom inent perisplenic varices, and possible splenorenal shunt noted, suboptimally evaluated on noncontrast exam. CT with contrast or abdominal ultrasound may be of benefit for further evaluation. 3.Right nonobstructive nephrolithiasis. 4.Small hiatal hernia. Diverticulosis wi thout diverticulitis. 5.Postoperative changes of the lower lum bar spine with a fractured screw at L5. [facility]-[id number] Performing Organization Address City/[email or web address] Phone Number [employer] [address] [place] [address] XR Chest 1 Vw Portable (08/15/2019 5:36 PM HEDIS ANALYST) Specimen Narrative Performed At EXAMINATION: [facility] CHEST 1 [facility]W [facility] CLINICAL H[facility]ORY: chest pain COMPARISON: Most Recent Prior at [facility] IMPRESSION: Mild elevation right hemidiaphragm. Heart enlarged. Th e pulmonary vascular is normal. No focal infiltrates or effusions. Metallic pellet overlying the lower thoracic spine on th e left. [facility]-[id number] Procedure Note Interface, Radiology Results Incoming - 08/15/2019 5:43 PM HEDIS ANALYST EXAMINATION: XR CHEST 1 VW PORTABLE CLINICAL HISTORY: chest pain COMPARISON: Most Recent Prior at [facility] IMPRESSION: Mild elevation right hemidiaphragm. Hear t enlarged. The pulmonary vascular is normal. No focal infiltrates or effusions. Metallic pellet overlying the lower thoracic spine on the left. [facility]-[id number] Performing Organization Address [facility] Phone Number [employer] [address] [place] [address] ECG ED Preliminary Interpretation - Not an Order (08/15/2019 5:15 PM HEDIS ANALYST) Narrative Performed At Apollo Cooper III, MD 08/16/19 7:44 PM ECG ED Preliminary Interpretation - Not an Order Performed by: Apollo Cooper III, MD Authorized by: Apollo Cooper III, M D ECG reviewed by ED Physician in the abse nce of a adjuster leader: yes Interpretation: Interpretation: normal Rate: ECG rate: 69 ECG rate assessment: normal Rhythm: Rhythm: sinus rhythm Ectopy: Ectopy: none QRS: QRS axis: Normal QRS intervals: Normal Conduction: Conduction: normal ST segments: ST segments: Normal T waves: T waves: normal B natriuretic peptide (08/15/2019 5:10 PM HEDIS ANALYST) Pathologist Sig nature BNP 34 0 - 100 pg/mL [facility] Specimen Blood Performing Organization Address [facility] Hospitalconm Phone Number [facility] DEPARTMENT OF PATHOLOGY [address] [place] [address] Lipase level (08/15/2019 5:10 PM HEDIS ANALYST) Pathologist Sig nature Lipase 47 13 - 60 U/L [facility] Specimen Plasma specimen Performing Organization Address [facility] Phone Number [facility] DEPARTMENT OF PATHOLOGY [address] [place] [address] Comprehensive metabolic panel (08/15/2019 5:10 PM HEDIS ANALYST) Sodium 138 135 - 148 [facility] mEq/L [facility] Potassium 4.4 3.5 - 5.0 [facility] mEq/L [facility] Chloride 96 (L) 98 - 112 mEq/L [facility] CO2 24 24 - 31 mEq/L [facility] Anion gap 18@ANIO (H) 7 - 15 mEq/L [facility] BUN 20 8 - 23 mg/dL [facility] Creatinine 0.99 (H) 0.50 - 0.90 [facility] mg/dL [facility] Glucose 171 (H) 65 - 99 mg/dL [facility] Calcium 10.6 (H) 8.8 - 10.2 [facility] mg/dL [facility] Protein 8.1 6.3 - 8.3 g/dL [facility] Albumin 4.7 3.5 - 5.0 g/dL [facility] A/G ratio 1.4 0.7 - 3.8 [facility] Alkaline phosphatase 105 (H) 35 - 104 U/L [facility] AST 379 (H) 10 - 35 U/L [facility] ALT 102 (H) 5 - 50 U/L [facility] Total bilirubin 0.6 0.2 - 1.2 [facility] mg/dL [facility] Specimen Plasma specimen Performing Organization Address City/State/Zipcode Phone Number [facility] DEPARTMENT OF PATHOLOGY [address] [facility] [address] AND GENOMIC MEDICINE [facility] [address] [facility] [address] HOSPITAL after 01/16/2019 Insurance Payer Benefit Plan / Subscriber ID Effective Phone Address T ype Group Dates [facility] xxxxxxxxxx [facility] Commercial INSURANCE INSURANCE nt MEDICARE MEDICARE PART xxxxxxxxxxx 2013-[place], [place] Medicare A AND B nt Advance Directives For more information, please contact: [phone] Type Date Recorded Patient Network Systems Analyst Explanati on Advance Directives, 08/15/2019 5:34 PM HAS LIVIN G WILL AND POA Living Will and DOES NOT KNOW LO CATION Medical Power of Director Music Advance Directives, 08/22/2019 1:41 PM MPOA - Living Will and Medical Power of Director Music
--- OUTSIDE RECORDS SUMMARY | 2020-01-17 11:03 | XMS REPORT | Continuity of Care Document ---
:1950 Author Organization [employer] Care Team Providers Name Role Phone [employer] Unavailable Un available Problems Problem Status Onset Classification Date Comments Sourc e Date Reported Personal history of 01/13/2020 [facility] colonic polyps 020 Atrial fibrillation Resolved Problem 01/13/2020 HAD CARDI AC [facility] (disorder) 019 ABLATION SACROILIITIS Active Memoria l 018 [place] Low back pain Active Problem 12/26/2017 Data MH Or tho (disorder) 014 migrated and Spine from [employer] on 02/20/15. Pain of truncal Active Problem 12/26/2017 Data Ortho structure (finding) 014 migrated and Spine from [employer] on 02/20/15. LOW BACK PAIN Active Condition 05/03/2014 Misch er 014 Neuro THORACIC PAIN Active Condition 05/03/2014 Misch er 014 Neuro CLOSED FRACTURE OF Active Condition 05/03/2014 Mischer LUMBAR VERTEBRA 014 Neur o WITHOUT MENTION OF SPINAL CORD INJURY 15 FOOT FALL Active [facility] s [address] [place] [address] RIB FXS, TP FXS Active [facility] exas [address] [place] [address] Arthritis (disorder) Active Problem 12/26/2017 [facility], Ortho and Spine, OPID [place] Diverticulitis Active Problem 12/26/2017 O rtho (disorder) and Spine Hearing loss (finding) Active Problem 12/26/2017 [facility] Spine Hypercholesterolemia Active Problem 12/26/2017 [facility] (disorder) [facility], Ortho and Spine, OPID [place] Kidney stone Resolved Problem 12/26/2017 [facility] (disorder) [facility], Ortho and Spine, OPID [place] Neuropathy (disorder) Active Problem 12/26/2017 [facility], Ortho and Spine, OPID [place] Diabetes mellitus Active Problem 01/13/2020 [facility] (disorder) [facility], Ortho and Spine,[facility]ID [place] Diverticulosis of Active Problem 01/13/2020 [facility] colon Bilateral lower limb Active Problem 01/13/2020 [facility] edema Steatosis of liver Active Problem 01/13/2020 [facility] (disorder) History of Active Problem 01/13/2020 [facility] diverticulitis (situation) History of polyp of Active Problem 01/13/2020 [facility] colon (situation) Hypothyroidism Active Problem 01/13/2020 [facility] ,[facility] (disorder) [facility], Ortho and Spine,[facility] [place] [place] Sleep apnea (finding) Active Problem 01/13/2020 [facility] FX EIGHT/MORE Active Cristobal as RIB-CLOSED [facility] Center Medications Medication Details Route Status Patient Ordering Order Source Instructions Provider Date [facility] Medication 600 mL, Soln-IV, Inactive 01/10/ [facility] IV, Once, first 2020 dose 01/11/20 9:26:00 CDT, stop date 01/11/20 9:26:00 CDT propofol 50 mg = 5 mL, Inactive 01/10/ [facility] Emulsion, IV, 2019 Once, first dose 01/11/20 9:08:00 CDT, stop date 01/11/20 9:08:00 CDT propofol 100 mg = 10 mL, Inactive 01/10/ [facility] Emulsion, IV, 2019 Once, first dose 01/11/20 9:04:00 CDT, stop date 01/11/20 9:04:00 CDT propofol 100 mg = 10 mL, Inactive 01/10/ [facility] Emulsion, IV, 2019 Once, first dose 01/11/20 9:00:00 CDT, stop date 01/11/20 9:00:00 CDT lidocaine 30 mg = 1.5 mL, Inactive 01/10/ [facility] Injection, IV, 2019 Once, first dose 01/11/20 8:56:00 CDT, stop date 01/11/20 8:56:00 CDT propofol 100 mg = 10 mL, Inactive 01/10/ [facility] Emulsion, IV, 2019 Once, first dose 01/11/20 8:56:00 CDT, stop date 01/11/20 8:56:00 CDT LR 1,000 mL 1,000 mL, IV, 30 Inactive 01/10/ [facility] mL/hr, start 201901/11/20 7:27:00 CDT, 1.88, m2 Lidocaine 2% 0.2 0.2 mL, Inactive 01/10/ [facility] mL IV Start Injection, 2019 [[facility]] Subcutaneous, Once PRN for other (see comment), first dose 01/11/20 7:27:00 CDT furosemide 40 mg 40 mg = 1 tabs, Active 01/06/ [facility] oral tablet Oral, Daily, BLE 2019 EDEMA Metformin 1,000 mg, Oral, Active [facility] BID, DM 2020 Thyroxine 75 mcg, Oral, Active 01/06/ [facility] Daily, 2020 HYPOTHYROIDISM sitagliptin 100 100 mg = 1 tabs, Active 01/06/ [facility] MG Oral Tablet Oral, Daily, DM 2020 [Januvia] glimepiride 4 mg 4 mg = 1 tabs, Active [facility] oral tablet Oral, BID, DM 2019 atorvastatin 10 10 mg = 1 tabs, Active 01/06/ [facility] mg oral tablet Oral, Daily, 2020 HIGH CHOL Acetaminophen 10 Notes: Infuse Inactive Ortho MG/ML Injectable over 15 minutes 2018 and Solution Do not exceed Spine 4gm/day of acetaminophen MEDICATION WASTE Product Size: 1000 mg Product Wasted: ___ mg Lactated Ringers 1,000 mL, Rate: No Longer 12/23 Ortho IV 1,000 mL 125 ml/hr, Active 2017 and Infuse over: 8 Spine hr, Route: IV, Dosing Weight 71.818 kg, Total Volume: 1,000, Start date: 12/23/17 11:32:00 CDT, Duration: 30 day, Stop date: 01/22/18 11:31:00 CDT, 1.87, m2 Ondansetron Notes: (Same as: No Longer 12/23/ M H Ortho Zofran ODT) Active 2017 and Spine Hydromorphone Notes: Same as No Longer 12/23/ M H Ortho Dilaudid Active 2017 and Spine Acetaminophen 325 Notes: Do not No Longer Ortho MG / Hydrocodone exceed 4gm/day Active 2017 and Bitartrate 10 MG of Spine Oral Tablet acetaminophen. (Same as: [place] 325/10) Solu-Medrol 125 mg, Route: Inactive O rtho IVP, Drug form: 2018 and INJ, ONCE, Spine Dosing Weight 71.364, kg, Start date: 12/23/17 10:04:00 CDT, Stop date: 12/23/17 10:04:00 CDT Famotidine 20 mg, Route: Inactive Ort ho IVP, ONCE, 2018 and Dosing Weight Spine 71.364, kg, Start date: 12/23/17 10:04:00 CDT, Stop date: 12/23/17 10:04:00 CDT Diphenhydramine 25 mg, Route: Inactive H Ortho IVP, ONCE, 2018 and Dosing Weight Spine 71.364, kg, Start date: 12/23/17 10:04:00 CDT, Stop date: 12/23/17 10:04:00 CDT Saline Flush 0.9% Notes: Same as: No Longer 11/28 Ortho BD Posiflush Active 2017 and Sterile Spine Lactated Ringers 1,000 mL, Rate: Inactive Ortho IV 1,000 mL 125 ml/hr, 2018 and Infuse over: 8 Spine hr, Route: IV, Dosing Weight 71.364 kg, Total Volume: 1,000, Start date: 12/23/17 10:03:00 CDT, Duration: 30 day, Stop date: 01/22/18 10:02:00 CDT, 1.86, m2 thyroid (LONG TERM) 180 180 mg = 1 tab, Active Ortho MG Oral Tablet PO, Daily, 0 2017 and [[place] Thyroid] Refill(s) Spine Metformin 1,000 mg = 2 Active Ortho hydrochloride 500 tab, PO, 2018 and MG Oral Tablet Bedtime, # 60 Spi ne tab, 0 Refill(s) LIDODERM 5 % PTCH apply to the No Longer affected area Active 2013 Neuro 12h on 12h off per 24h period prn pain. CYCLOBENZAPRINE 1 tab po q8h prn Active HCL 10 MG TABS muscle spasms 2013 C[place]ric ro GLIPIZIDE-METFORM Active r IN HCL TABS 2013 Neuro GLIMEPIRIDE TABS Active 2013 Neuro CRESTOR TABS Active 2013 Neuro CELEBREX CAPS Active 2013 Neuro BABY ASPRIN Active 2013 Neuro ARMOUR THYROID Active TABS 2013 Neuro CYCLOBENZAPRINE 1 tab po q8h prn No Longer 03/01 HCL 10 MG TABS muscle spasms Active 2013 [facility] ro Acetaminophen 325 1 tab, PO, Q4H, Active [facility] MG / Hydrocodone Pain Score 1-3, 2013 Medical Bitartrate 10 MG # 30 tab, [address] Oral Tablet Refill(s) Metformin Notes: (Same as: No Longer [facility] Glucophage) Active 2013 Medical Take with meal Center Glyburide Notes: (Same as: No Longer [facility] Micronase, Active 2013 Medical Diabeta) Take Center with meals. Metformin Notes: Same as [place] Longer [place] Glucophage Active 2013 [facility] Insulin, Regular, 60 units) No Longer [facility] Pork Stable for 28 Active 2013 Medical days at room Center temperature Expires in days from Da te Flexeril Notes: (Same As: No Longer [place] Flexeril) Active 2013 Medical [facility] Diphenhydramine Notes: (Same as: No Longer 01/15 [facility] Benadryl) Active 2013 [facility] Insulin, Regular, 60 units) No Longer [facility] Pork Stable for 28 Active 2013 Medical days at room Center temperature Expires in days from Da te Metformin 1.5 tab, Route: Inactive [place] hydrochloride PO, QPM, Dosing 2013 Me dical 1000 MG Oral Weight 88.636, Cent er Tablet kg, Start date: 01/14/14 17:00:00, Duration: 30 day, Stop date: 02/12/14 17:00:00 Morphine Notes: (Same Inactive [facility] as:MORPhine 2013 Medical Sulfate) Center Morphine Notes: (Same Inactive [facility] as:MORPhine 2013 Medical Sulfate) Center Amaryl Notes: (Same as: Inactive Cristobal as Amaryl) 2013 [facility] [place] Thyroid 100 mg, Route: No Longer [place] PO, Drug form: Active 2013 Medical TAB, Daily, Center Dosing Weight 88.636, kg, Start date: 01/14/14 9:00:00, Duration: 30 day, Stop date: 02/12/14 9:00:00 Glyburide 4 mg, Route: PO, No Longer [place] Drug form: TAB, Active 2013 Medical BID, Dosing Center Weight 88.636, kg, Start date: 01/14/14 9:00:00, Duration: 30 day, Stop date: 02/12/14 17:00:00 Metformin 1,000 mg, Route: Inactive [place] PO, Drug form: 2013 Medical TAB, Daily, Center Dosing Weight 88.636, kg, Start date: 01/14/14 9:00:00, Duration: 30 day, Stop date: 02/12/14 9:00:00 Insulin, Regular, 60 units) No Longer [facility] Pork Stable for 28 Active 2013 Medical days at room Center temperature Expires in days from Da te Dextrose 50% 12.5 gm, 25 mL, No Longer [facility] Syringe Route: IVP, Drug Active 2013 Medical Form: INJ, Center Dosing Weight 88.636, kg, PRN, PRN Blood Glucose Results, Start date: 01/14/14 8:26:00, Duration: 30 day, Stop date: 02/13/14 8:25:00 Glucagon 1 mg, Route: IM, Inactive [place] Drug form: 2013 Medical PDR/INJ, PRN, Center Dosing Weight 88.636, kg, PRN Blood Glucose Results, Start date: 01/14/14 8:26:00, Duration: 30 day, Stop date: 02/13/14 8:25:00 [place] Thyroid Notes: (Same As: No Longer [facility] [place] Thyroid, Active 2013 Medical S-P-T) Center Ketorolac 4 days Inactive [place] [address] [facility] Center celecoxib Notes: NSAID. No Longer Cristobal as Please check Active 2013 Medical indication. Not Center for seizure. (Same As: CeleBREX ) Acetaminophen 325 1 tab, Route: Inactive [facility] MG / Hydrocodone PO, Dosing 2013 [facility] Bitartrate 10 MG Weight 81.818, Center Oral Tablet kg, ONCE, Start [[place] 10] date: 01/13/14 19:35:00, Stop date: 01/13/14 19:35:00 Enoxaparin Notes: (Same as: No Longer [facility] Lovenox) Active 2013 [facility] [place] Thyroid 100 mg, PO, Active [place] Daily, 0 2013 Medical Refill(s) [facility] celecoxib 100 MG Special Active [place] Oral Capsule Instructions: 2013 Medic al [Celebrex] prn [facility] Rosuvastatin 5 mg = 1 tab, Active [place] calcium 5 MG Oral PO, Bedtime, 0 2013 Medical Tablet [Crestor] Refill(s) Cente r Glyburide 4 mg, PO, BID, 0 [place] Refill(s) 2013 [facility] Metformin Special Active [facility] Instructions: 2014 Medical 1,000mg in the Center mornig and 1500 mg in the evening iodixanol Special Inactive [facility] Instructions: 2014 Medical Weight = 75 - Center 94kg -- "To be infused by Radiology Staff ONLY" Bisacodyl Notes: (Same As: No Longer [facility] Dulcolax, Active 2013 Medical Correctol) (Do Center Not Crush) "Do Not Crush" Docusate Notes: (Same as: No Longer [place] Colace) (Do Not Active 2013 Medical Crush) [facility] Acetaminophen 325 Notes: Do not No Longer [facility] MG / Hydrocodone exceed 4gm/day Active 2013 Medical Bitartrate 10 MG of Center Oral Tablet acetaminophen. (Same as: [place] 325/10) Allergies, Adverse Reactions, Alerts Substance Category Reaction Severity Reaction Status Date Comments S ource type Reported PENICILLIN Drug PENICILLIN Mischer allergy 4 Neuro penicillins< Assertion hives Drug Active Data Ortho sup>1</sup> allergy 4 migrated and from [employer] [facility] on 02/19/15. Originally documented as PENICILLIN . iodine Assertion Drug Active Ort ho allergy and Spine penicillins Assertion Drug Active [facility] allergy [place] penicillin Assertion Rash Drug Active LONG TERM I allergy succinylchol Assertion Drug Active [facility] ine allergy iodinated Assertion Drug Active [facility] radiocontras allergy t dyes Immunizations No Data Provided for This Section Results Order Name Results Value Reference Date Interpretation Comments Jennifer rce Range LABORATORY Blood 124 74 - 106 01/10 [facility] Glucose, /2020 Capillary HEMATOLOGY Lymphocytes 23.4 20.0 - 01/14 [place] 40.0 [facility] HEMATOLOGY Eosinophils 2.0 0.0 - 4.0 01/14 [facility] HEMATOLOGY Segs 57.6 45.0 - 01/14 75.0 [facility] HEMATOLOGY Monocytes 16.3 2.0 - 12.0 01/14 [facility] HEMATOLOGY RBC Morph Normal 01/14 [facility] (01/14/14 5:20 AM) [facility] HEMATOLOGY Basophils 0.7 0.0 - 1.0 01/14 [facility] HEMATOLOGY Large Plt Slight None Seen 01/14 [facility] *ABN* [facility] (01/14/14 5:20 AM) [facility] HEMATOLOGY Eosinophils # 0.1 0.0 - 0.5 01/14 [facility] HEMATOLOGY Segs-Bands # 3.5 1.5 - 8.1 01/14 [facility] HEMATOLOGY Lymphocytes # 1.4 1.0 - 5.5 01/14 [facility] HEMATOLOGY Monocytes # 1.0 0.0 - 0.8 01/14 [facility] HEMATOLOGY Hgb 11.5 12.0 - 01/14 [place] 16.0 [facility] HEMATOLOGY MCHC 33.5 32.0 - 01/14 [place] 36.0 [facility] HEMATOLOGY MCH 30.4 27.0 - 01/14 [place] 31.0 [facility] HEMATOLOGY MCV 90.7 81.0 - 01/14 99.0 [facility] HEMATOLOGY Hct 34.3 36.0 - 01/14 [place] 48.0 [facility] HEMATOLOGY RDW 13.9 11.5 - 01/14 [place] 14.5 [facility] HEMATOLOGY Platelet 140 133 - 450 01/14 [facility] HEMATOLOGY MPV 10.6 7.4 - 10.4 01/14 [facility] HEMATOLOGY WBC 6.1 3.7 - 10.4 01/14 [facility] HEMATOLOGY RBC 3.78 4.20 - 01/14 5.40 [facility] CHEM PANEL Globulin 2.7 2.0 - 4.0 01/14 [facility] CHEM PANEL A/G Ratio 1.3 0.7 - 1.6 01/14 [facility] CHEM PANEL B/C Ratio 19 6 - 25 01/14 [facility] CHEM PANEL AGAP 11.6 10.0 - 01/14 20.0 [facility] CHEM PANEL Bili Total 0.5 0.2 - 1.3 01/14 [facility] CHEM PANEL Total Protein 6.2 6.4 - 8.4 01/14 [place] [facility] CHEM PANEL Albumin Lvl 3.5 3.5 - 5.0 01/14 [facility] CHEM PANEL Alk Phos 73 39 - 136 01/14 [facility] CHEM PANEL ALT 42 0 - 65 01/14 [facility] CHEM PANEL AST 56 0 - 37 01/14 [facility] CHEM PANEL eGFR 78 01/14 [facility]sup[facility]sup[facility] Comment: The Center eGFR is calculated using the CKD-EPI formula. In most young, healthy individuals the eGFR will be >90 mL/min/1.73m2 . The eGFR declines with age. An eGFR of 60-89 may be normal in some populations, particularly the elderly, for whom the CKD-EPI formula has not been extensively validated. Use of the eGFR is not recommended in the following populations:& lt;br/>
I ndividuals with unstable creatinine concentration s, including patients and those with serious co-morbid conditions.<b r/>
Patie nts with extremes in muscle mass or diet.

The data above are obtained from the National Kidney Disease Education Program (NKDEP) which additionally recommends that when the eGFR is used in patients with extremes of body mass index for purposes of drug dosing, the eGFR should be multiplied by the estimated BMI. CHEM PANEL Sodium Lvl 137 135 - 145 01/14 [facility] CHEM PANEL Potassium Lvl 4.6 3.5 - 5.1 01/14 [place] [facility] CHEM PANEL BUN 15 7 - 22 01/14 [facility] CHEM PANEL Creatinine 0.8 0.5 - 1.4 01/14 [facility] Center CHEM PANEL Glucose Lvl 258 70 - 99 01/14 <sup>2</sup>I nterpretive Medical Data: Adult Center reference range values reflect the clinical guidelines
of the [place] [employer]. CHEM PANEL Chloride Lvl 102 95 - 109 01/14 [facility] Center CHEM PANEL CO2 28 24 - 32 01/14 [facility] CHEM PANEL Calcium Lvl 8.6 8.5 - 10.5 01/14 [facility] HEMATOLOGY [place] 0.6 01/14 [facility] HEMATOLOGY Angle 77 64 - 80 01/14 [facility] HEMATOLOGY K-time 1.1 0.6 - 2.3 01/14 [facility] HEMATOLOGY R-time 0.7 0.4 - 0.7 01/14 [facility] HEMATOLOGY ACT (TEG) 113 86 - 118 01/14 [facility] HEMATOLOGY G-value 11.4 5.0 - 11.6 01/14 [facility] HEMATOLOGY Max Amp 70 52 - 71 01/14 [facility] HEMATOLOGY Rapid TEG Citrated 01/14 [facility] Sample Type Medical Blood Center HEMATOLOGY Estimated % 1.7 0.0 - 7.5 01/14 [facility] CHEM PANEL Lactic Acid 1.5 0.5 - 2.2 01/14 s [facility] HEMATOLOGY Platelet 153 133 - 450 01/14 [facility] HEMATOLOGY MPV 10.2 7.4 - 10.4 01/14 [facility] HEMATOLOGY RDW 13.3 11.5 - 01/14 14.5 [facility] HEMATOLOGY MCHC 34.5 32.0 - 01/14 [facility] 36.0 [facility] HEMATOLOGY MCV 89.2 81.0 - 01/14 99.0 Medical Center HEMATOLOGY MCH 30.7 27.0 - 01/14 [facility] 31.0 /2013 [facility] HEMATOLOGY WBC 9.4 3.7 - 10.4 01/14 [facility] HEMATOLOGY Hct 34.2 36.0 - 01/14 48.0 [facility] HEMATOLOGY Hgb 11.8 12.0 - 01/14 16.0 [facility] HEMATOLOGY RBC 3.84 4.20 - 01/14 [place] 5.40 /2013 [facility] HEMATOLOGY Anisocyte 1+ None Seen 01/14 [facility] *ABN* [facility] (01/13/14 8:05 PM) [facility] HEMATOLOGY Segs-Bands # 7.5 1.5 - 8.1 01/14 [facility] HEMATOLOGY Plt Morph Normal 01/14 [facility] (01/13/14 8:05 PM) [facility] HEMATOLOGY Segs 80.3 45.0 - 01/14 75.0 [facility] HEMATOLOGY Lymphocytes 12.5 20.0 - 01/14 40.0 [facility] HEMATOLOGY Basophils 0.2 0.0 - 1.0 01/14 [facility] HEMATOLOGY Eosinophils 2.2 0.0 - 4.0 01/14 [facility] HEMATOLOGY Monocytes 4.8 2.0 - 12.0 01/14 [facility] HEMATOLOGY Lymphocytes # 1.2 1.0 - 5.5 01/14 [facility] HEMATOLOGY Monocytes # 0.5 0.0 - 0.8 01/14 [facility] HEMATOLOGY Basophils # 0.0 0.0 - 0.2 01/14 [facility] HEMATOLOGY Eosinophils # 0.2 0.0 - 0.5 01/14 [facility] Pathology Reports No Data Provided for This Section Diagnostic Reports Report Value Date Source Spine lumbar 2 or 3 EXAM: XR LUMBAR SPINE 2 VIEWS 05/03/2014 BRANDON [place] views DX DATE: 2014-05-03 0840 hours INDICATION: 724.2 Lumbago , 805.4 Closed Fracture of Lumbar Vertebra without Mention of Spinal Cord Injury COMPARISON: March 01, 2014 TECHNIQUE: AP and lateral radiographs of the l umbar spine FINDINGS: 5 lumbar-type, non rib-bearing vertebral bodies are identified. An L3 compression fracture with approximately 20-25% central vertebral body height loss is not significant changed in height or a lignment in the interim by m y measurement. Remaining vertebral body heights are overall preserved. There is straightening of lumbar lordosis with trace degenerative anterolisthesis of L3 on L4, unchange d. There is mild disc height loss at the lower lumbar spine. Prior laminectomy at L5-S1, and multilevel facet osteoarthrosis are again noted. IMPRESSION: No significant i nterval change in height or alignment of the L3 vertebral body compression fracture. Spine lumbar 2 or 3 EXAM: XR LUMBAR SPINE 2 VIEWS 03/01/2014 OPID [place] views DATE: 03/01/2014 at 0739 hours INDICATION: Closed Fracture of Lumbar Vertebra without Mention of Spinal Cord Injury . COMPARISON: CT abdomen from 01/13/2014 TECHNIQUE: AP, coned lateral and lateral radio graphs of the lumbar spine DISCUSSION: 5 lumbar-type, n onrib-bearing vertebral bodies are identified. A superior endplate compression fracture seen at the L3 vertebral body. When compared to the CT from 01/13/2014, there is 15% lo ss of height of L3. Grade 1 anterolisthesis at the L3-L4 level. The patient has had prior L5 laminectomy. No soft tissue abnormality is identified. IMPRESSION: 1. L3 superior endplate compression fracture wit h 15% height loss. 2. Grade 1 anterolisthesis at the L3-L4 level. Chest 1view PORTABLE CHEST 2014-01-16 08:22:00 01/16/2014 [facility] COMPARISON: Yesterday CLINICAL INDICATION: Trauma DISCUSSION: Lungs are withou t airspace disease. No pleural effusions or pneumothorax. Cardiac silhouette and mediastinum are unchanged. A pellet is again seen overlying left lower thorax. IMPRESSION: No significant interval change. Chest 1view PORTABLE CHEST 2014-01-15 10:33:00 01/15/2014 [facility] COMPARISON: Yesterday CLINICAL INDICATION: Trauma DISCUSSION: Minimal platelik e atelectasis is seen within right midlung. No pleural effusions or pneumothorax. A pellet is again seen overlying left lower thorax. Chest 1view PORTABLE CHEST 2014-01-14 14:57:00 01/14/2014 [facility] COMPARISON: Yesterday CLINICAL INDICATION: Trauma DISCUSSION: Platelike atelec tasis is seen within retrocardiac regions. Remainder of lungs are without airspace disease. No pleural effusions or pneumothorax. Cardiac silhouette and mediastinum are withi n normal limits. A metallic pellet overlies left lower thorax. IMPRESSION: Subsegmental atelectasis within lowe r lungs. Abdomen/Pelvis w IV EXAM: CT ABDOMEN AND PELVIS WITH CONTRAST [facility] contrast CT Center DATE:Jan 13, 2014 06:43:00 PM INDICATION: Trauma. TECHNIQUE: Following intrave nous administration of 99 mL Visipaque 320, axially oriented images were obtained from the lung bases through the ischial tuberosities. Delayed imaging was then performed th rough the kidneys, using a r adiation reduction technique. Sagittal and coronal reformat images of the abdomen and pelvis are provided. COMPARISON: None available. FINDINGS: There is a small right pleur al effusion. Note made of bibasilar subsegmental atelectasis. There is a tiny focus of pneumothorax adjacent to the costochondral separation at the right seventh rib. There is no thoracic or abdominal adenopathy. There are small calcifications within a subcarinal lymph node. No vascular injury is detected. There are scattered foci of atherosclerotic calcification in the thoracic and abdominal aorta. The liver, spleen, pancreas, gall bladder, adrenal glands and kidneys are intact. There are small calcified gallstones. There is a large exophytic simple cyst arising from the superior pole of the left kidney measuring 2.6 cm in d iameter. There are additional left renal hypodensities too small to characterize. There is severe diverticulos is of the sigmoid colon, with scattered diverticula present elsewhere in the remainder of the colon. The appendix is normal. A Herrera catheter is in place . There are foci of air within the bladder, which is to be expected. Nondisplaced fracture of rig ht anterior rib 5, 6, and 8. There is right anterior costochondral separation at the seventh rib. There is narrowing of intervertebral disc spaces at L3-L4, L4-L5, and L5-S1. There is small depression f racture of the left aspect of the L3 superior endplate, with minimal loss in height. There is no fragment retropulsion. There is laminectomy at L5-S2. There is abnormal stra ightening of the lumbar spin e at this level. Posterior disc herniations are present at there are fractures of the distal end of the right L2 through L4 transverse processes. Enthesophytes are present at the greater tuberosities. There is myositis ossificans within the origin of the left quadriceps musculature. Bilateral visual tuberosity enthesophytes are present. IMPRESSION: 1. Nondisplaced fractures of right anterior ribs 5, 6, and 8. 2. Fracture with costochondral separation at the right anterior seventh rib. 3. Small right pleural effusion. Dependent subse gmental atelectasis 4. Nondisplaced fractures of the right L2-L4 tra nsverse processes 5. Fracture of the left aspe ct of the L3 superior endplate, without significant loss in height or fragment retropulsion. 6. Severe degenerative disc disease and facet arthropathy with posterior herniations at L3-L4 through L5-S1. L5-S2 laminectomy. 7. Severe diverticulosis of the sigmoid colon Additional finding [address] Jesus winters t [id number]. Consultation Notes No Data Provided for This Section Discharge Summaries No Data Provided for This Section History and Physicals No Data Provided for This Section Vital Signs Vital Sign Value Date Comments Source Peripheral Pulse Rate 64 01/11/2020 [facility] Respitory Rate 13 01/11/2020 [facility] Systolic (mm Hg) 154 01/11/2020 [facility] Diastolic (mm Hg) 76 01/11/2020 [facility] Heart Rate 63 01/11/2020 [facility] Respitory Rate 19 01/11/2020 [facility] Systolic (mm Hg) 156 01/11/2020 [facility] Diastolic (mm Hg) 78 01/11/2020 [facility] Heart Rate 62 01/11/2020 [facility] Respitory Rate 14 01/11/2020 [facility] Systolic (mm Hg) 162 01/11/2020 [facility] Diastolic (mm Hg) 88 01/11/2020 [facility] Heart Rate 70 01/11/2020 [facility] Temperature Oral (F) 36.2 Katalina 01/11/2020 [facility] Temperature Oral (F) 37 Katalina 01/11/2020 [facility] Peripheral Pulse Rate 61 01/11/2020 [facility] Height 167.6 cm 01/11/2020 [facility] Weight Measured 78.4 01/11/2020 [facility] Height 167.6 cm 01/07/2020 [facility] Weight Measured 78.4 01/07/2020 [facility] Respitory Rate 16 12/23/2017 [facility] Systolic (mm Hg) 133 12/23/2017 [facility] Diastolic (mm Hg) 71 12/23/2017 [facility] Systolic (mm Hg) 134 12/23/2017 [facility] Diastolic (mm Hg) 71 12/23/2017 [facility] Respitory Rate 16 12/23/2017 [facility] Respitory Rate 16 12/23/2017 [facility] Systolic (mm Hg) 129 12/23/2017 [facility] Diastolic (mm Hg) 58 12/23/2017 [facility] BMI Calculated 24.07 12/23/2017 [facility] Weight 71.818 12/23/2017 [facility] Height 172.72 cm 12/18/2017 [facility] Weight 200.0 05/03/2014 [facility] Height 67 05/03/2014 [facility] Temperature Oral (F) 98.4 F 05/03/2014 [facility] Heart Rate 72 05/03/2014 [facility] Systolic (mm Hg) 137 05/03/2014 [facility] Diastolic (mm Hg) 76 05/03/2014 [facility] Respitory Rate 19 05/03/2014 [facility] Weight 197 03/01/2014 [facility] Height 68 03/01/2014 [facility] Temperature Oral (F) 97.7 F 03/01/2014 [facility] Respitory Rate 17 03/01/2014 [facility] Heart Rate 74 03/01/2014 [facility] Systolic (mm Hg) 140 03/01/2014 [facility] Diastolic (mm Hg) 66 03/01/2014 [facility] Temperature Oral (F) 98.3 F 01/17/2014 [facility] Heart Rate 78 01/17/2014 [facility] Respitory Rate 17 01/17/2014 [facility] Systolic (mm Hg) 118 01/17/2014 [facility] Diastolic (mm Hg) 69 01/17/2014 [facility] Systolic (mm Hg) 131 01/17/2014 [facility] Diastolic (mm Hg) 59 01/17/2014 [facility] Center Respitory Rate 17 01/17/2014 [facility] Heart Rate 75 01/17/2014 [facility] Temperature Oral (F) 97.9 F 01/17/2014 [facility] Systolic (mm Hg) 127 01/17/2014 [facility] Respitory Rate 18 01/17/2014 [facility] Temperature Oral (F) 97.7 F 01/17/2014 [facility] Diastolic (mm Hg) 64 01/17/2014 [facility] Heart Rate 67 01/17/2014 [facility] Weight 88.636 01/14/2014 [facility] BMI Calculated 30.61 01/14/2014 [facility] Height 170.18 cm 01/14/2014 [facility] Height 165.1 cm 01/14/2014 [facility] BMI Calculated 30.02 01/14/2014 [facility] Weight 81.818 01/14/2014 [facility] Weight 81.818 01/13/2014 [facility] BMI Calculated 30.02 01/13/2014 [facility] Height 165.1 cm 01/13/2014 [facility] Encounters Location Location Encounter Encounter Reason Attending ADM DC Stat us Source Details Type Number For Provider Date Date Visit [facility] [id number] Stu 01/13 01/17 Bony Sutton 9 Yung /2013 [facility] Outpt Diag [id number] Pako 03/01 03/02 [facility] 0 Naveen [facility] Lab Report [id number] Pako 03/02 03/02 [facility] [place] [address] Naveen BRUSH /2013 [facility] Office [id number] Pako 05/03 05/03 Mis [facility] Visit [id number] Naveen BRUHS /2013 N euro e [facility] Outpt Diag [id number] Pako 05/03 05/04 [facility] 1 [facility] [id number] LEIF 10/14 [facility] [place] [facility] [id number] LEIF 12/09 [facility] Day Surgery [id number] Anand 12/23 12/24 [facility] [place] 1 Yani /2017 [facility] Outpatient [id number] Pee 09/04 09/04 Active Surgic al Felixhmike /2019 [facility] Outpatient [id number] Pee 09/04 09/05 [facility] Outpatient [id number] Pee 01/10 01/10 Discharg Surg ical ed [facility] Outpatient [id number] Pee 01/10 01[facility]10 [facility] Procedures Procedure Code Date Perfomer Comments Source COLONOSCOPY FLEXIBLE; auto-populated [facility] WITH BIOPSY; SINGLE 0 from documented OR MULTIPLE 95546 surgical case (N/A)<sup>1</sup> Fusion of lumbar 43748922 L2-5 Ortho and spine<sup>1</sup> 4 Spine Laminectomy<sup>2</east 646791786 L3-4 Ortho and p> 2 Spine Carpal tunnel release [id number] [facility], [facility] Hysterectomy [id number] [facility] Orth[facility] and Spine Laminectomy [id number] [facility] Lumbar spinal fusion [id number] [facility] r[facility]o and Spine Tonsillectomy and [id number] [facility] BACK SURGERIES [facility] Cholecystectomy [id number] [facility] Colonoscopy [id number] [facility] LASIK [id number] [facility] POLYP REMOVAL FROM [facility] BLADDER SINUS SURGERY [facility] Tonsillectomy [id number] [facility] Total hysterectomy [id number] [facility] Assessment and Plan Assessment and Plan Date Source Extracted from:Title: Clinical Document 12/24/2017 [facility] Author: Anand Lomeli MD Date: 12/23/17 HISTORY AND PHYSICAL EXAMINATION/REVIEW OF SYSTEMS Present Complaint:_ right low back and buttock pain Past History: Alcohol Details: Never Tobacco Details: Use: Never smoker. Tobacco smo ke exposure: None. Did the Patient Smoke Cigarettes Anytime During the Last 365 Days? No. Cessation Counseling Provided? No. Details: Use: Never smoker. Tobacco smo ke exposure: None. Did the Patient Smoke Cigarettes Anytime During the Last 365 Days? No. Cessation Counseling Provided? No. Substance Abuse Details: Use: None. Fusion of lumbar spine: 2013 Laminectomy: 2001 Hysterectomy Laminectomy Tonsillectomy and adenoidectomy Carpal tunnel release Lumbar spinal fusion Kidney stones Mother: Alzheimer's disease; Hypertension; Type 2 diabetes m ellitus Father: Melanoma. Sister: Hypertension; Type 2 diabetes mellitus Grandparent: Hypertension; Type 2 diabetes mellitus Allergies Allergies (2) Active Reaction iodine None Documented penicillins hives Home Medications: Home Medications (7) Active [place] Thyroid 180 mg oral tablet 180 mg = 1 tab, PO, Daily aspirin 81 mg tablet, enteric coated 81 mg = 1 tab, PO, Elaine y gabapentin 300 mg oral capsule See Instructions glimepiride 4 mg oral tablet 4 mg = 1 tab, PO, BID Januvia 100 mg oral tablet 100 mg = 1 tab, PO, Daily metFORMIN 500 mg oral tablet 500 mg = 1 tab, PO, TID metFORMIN 500 mg oral tablet 1,000 mg = 2 tab, PO, Bedtime Vitals Signs: No qualifying data available General(_xAlert, Oriented, No Acute Distress):_ Pertinent Lab:___pending HEENT (_x no mass or deformity):_ Torso/Breast (_ no mass or deformity):_ deferred Heart (x_ normal Rhythm, no murmur or gallop):_ Lungs (_x Clear no auscultation):_ Abdomen (no mass or tenderness):_deferred Pelvic/Rectal (no mass or tenderness):_ deferred Extremities (no edema or tenderness):_ deferred Neurological (_ intact):_ deferred Impressions: _ Diagnosis: -lumbosacral spondylosis 94837 -lumbago 1783 -dysfunction of sacroiliac joint 128800 -sacroiliitis 48229 Treatment plan:_ D/T right SI joint blk Plan of Care No Data Provided for This Section Social History Social History Date Source Social History TypeResponse 01/07/2020 [facility] Smoking Status Never (less than 100 in lifetime) entered on: 01/07/20 Social History TypeResponse 12/18/2017 [facility] Substance Abuse Use: None. Alcohol Never Smoking Status Never smoker; Exposure to Tobacco Smoke None; Cigarette Smoking Last 365 Days No; Reg Smoking Cessation Counseling No entered on: 12/23/17 Social History TypeResponse 01/14/2014 [facility] Alcohol Use: Never Smoking Status Never smoker, Exposure to Tobacco Smoke None, Cigarette Smoking Last 365 Days No, Reg Smoking Cessation Counseling No Social History TypeResponse 01/14/2014 [facility]shan Alcohol Use: Never Smoking Status Never smoker, Exposure to Tobacco Smoke None, Cigarette Smoking Last 365 Days No, Reg Smoking Cessation Counseling No Family History No Data Provided for This Section Advance Directives No Data Provided for This Section Functional Status No Data Provided for This Section
--- OUTSIDE RECORDS SUMMARY | 2020-01-17 11:03 | XMS REPORT | Summary of Care ---
:1950 Author Organization [facility] Address [address] [place] [address] Care Team Providers Name Role Phone Wyatt Fitzgerald Primary Care Physician Unavailable Encounter [facility] [id number] Date(s): 01/11/20 - 01/11/20 [facility] [address] [place] [address]- Encounter Diagnosis Personal history of colonic polyps (Discharge Diagnosis) - 01/11/20 Discharge Disposition: Discharged to Home or Self Care Attending Physician: Pee Howard MD Admitting Physician: Pee Howard MD Vital Signs Most recent to oldest 1 2 3 [Reference Range]: Temperature Oral [35.8-37.3 37 DegC DegC] (01/11/20 7:33 AM) Temperature Temporal Artery 36.2 DegC [36.3-37.8 DegC] *LOW* (01/11/20 9:20 AM) Temperature Temporal 97.16 Fahrenheit (01/11/20 9:20 AM) Peripheral Pulse Rate [55-105 64 bpm 61 bpm bpm] (01/11/20 10:08 AM) (01/11/20 7:33 AM) Heart Rate Monitored [60-100 63 bpm 62 bpm 70 bpm bpm] (01/11/20 9:50 AM) (01/11/20 9:40 AM) (01/11/20 9:3 0 AM) Respiratory Rate [12-20] 13 19 14 (01/11/20 10:08 AM) (01/11/20 9:50 AM) (01/11/20 9: 40 AM) SpO2 [90-100 %] 100 % 100 % 100 % (01/11/20 10:08 AM) (01/11/20 9:50 AM) (01/11/20 9: 40 AM) Blood Pressure [110-120/65-85 154/76 mmHg 156/78 mmHg 16 2/88 mmHg mmHg] *HI* *HI* *HI* (01/11/20 10:08 AM) (01/11/20 9:50 AM) (01/11/20 9: 40 AM) Mean Arterial Pressure, Cuff 104 mmHg 112.7 mmHg 96. 7 mmHg (01/11/20 9:50 AM) (01/11/20 9:40 AM) (01/11/20 9:3 0 AM) Activity Level - SpO2 With activity With activity With activ ity (01/11/20 9:50 AM) (01/11/20 9:40 AM) (01/11/20 9:3 0 AM) Height 167.6 cm 167.6 cm (01/11/20 7:33 AM) (01/07/20 3:35 PM) Height/Length Dosing 167.6 cm 167.6 cm (01/11/20 7:33 AM) (01/07/20 3:35 PM) Height Inches 66 in 66 in (01/11/20 7:33 AM) (01/07/20 3:35 PM) Weight 78.4 kg 78.4 kg (01/11/20 7:33 AM) (01/07/20 3:35 PM) Weight Dosing 78.4 kg 78.4 kg (01/11/20 7:33 AM) (01/07/20 3:35 PM) Weight Pounds 172 lb 172 lb (01/11/20 7:33 AM) (01/07/20 3:35 PM) Body Mass Index 27.91 kg/m2 27.91 kg/m2 (01/11/20 7:33 AM) (01/07/20 3:35 PM) Problem List Condition Effective Dates Status Health Status Informant Atrial fibrillation(Confirmed)1 04/2019 - 04/2019 Resolved Diabetes mellitus(Confirmed) Active Diverticulosis of colon(Confirmed) Active Edema of both lower Active limbs(Confirmed) Fatty liver(Confirmed) Active History of Active diverticulitis(Confirmed) History of polyp of Active colon(Confirmed) Hypothyroidism(Confirmed) Active Sleep apnea(Confirmed) Active 1HAD CARDIAC ABLATION Allergies, Adverse Reactions, Alerts Substance Reaction Severity Status penicillin Rash Active succinylcholine Active iodinated radiocontrast dyes Act jennifer Medications atorvastatin 10 mg oral tablet 10 mg = 1 tabs, Oral, Daily, HIGH CHOL Start Date: 01/07/20 Stop Date: 01/21/20 Status: Orderedfurosemide 40 mg oral tablet 40 mg = 1 tabs, Oral, Daily, BLE EDEMA Start Date: 01/07/20 Stop Date: 01/21/20 Status: Orderedglimepiride 4 mg oral tablet 4 mg = 1 tabs, Oral, BID, DM Start Date: 01/07/20 Stop Date: 01/21/20 Status: OrderedJanuvia 100 mg oral tablet 100 mg = 1 tabs, Oral, Daily, DM Start Date: 01/07/20 Stop Date: 01/21/20 Status: Orderedlevothyroxine 75 mcg, Oral, Daily, HYPOTHYROIDISM Start Date: 01/07/20 Status: Orderedlidocaine 30 mg = 1.5 mL, Injection, IV, Once, first dose 01/11/20 8:56:00 CDT, stop date 01/11/20 8:56:00 CDT Start Date: 01/11/20 Stop Date: 01/11/20 Status: CompletedLidocaine 2% 0.2 mL IV Start [[place]] 0.2 mL, Injection, Subcutaneous, Once PRN for other (see comment), first dose 01/11/20 7:27:00 CDT Start Date: 01/11/20 Stop Date: 01/11/20 Status: DiscontinuedLR 1,000 mL 1,000 mL, IV, 30 mL/hr, start date 01/11/20 7:27:00 CDT, 1.88, m2 Start Date: 01/11/20 Stop Date: 01/11/20 Status: DiscontinuedmetFORMIN 1,000 mg, Oral, BID, DM Start Date: 01/07/20 Stop Date: 01/21/20 Status: OrderedMisc Medication 600 mL, Soln-IV, IV, Once, first dose 01/11/20 9:26:00 CDT, stop date 01/11/20 9:26:00 CDT Start Date: 01/11/20 Stop Date: 01/11/20 Status: Completedpropofol 100 mg = 10 mL, Emulsion, IV, Once, first dose 01/11/20 8:56:00 CDT, stop date 01/11/20 8:56:00 CDT Start Date: 01/11/20 Stop Date: 01/11/20 Status: Completedpropofol 100 mg = 10 mL, Emulsion, IV, Once, first dose 01/11/20 9:00:00 CDT, stop date 01/11/20 9:00:00 CDT Start Date: 01/11/20 Stop Date: 01/11/20 Status: Completedpropofol 100 mg = 10 mL, Emulsion, IV, Once, first dose 01/11/20 9:04:00 CDT, stop date 01/11/20 9:04:00 CDT Start Date: 01/11/20 Stop Date: 01/11/20 Status: Completedpropofol 50 mg = 5 mL, Emulsion, IV, Once, first dose 01/11/20 9:08:00 CDT, stop date 01/11/20 9:08:00 CDT Start Date: 01/11/20 Stop Date: 01/11/20 Status: Completed Results Most recent to oldest [Reference Range]: 1 Blood Glucose, Capillary [74-106 mg/dL] 124 mg/dL *HI* (01/11/20 7:48 AM) Immunizations No data available for this section Procedures Procedure Date Related Diagnosis Body Site Status COLONOSCOPY FLEXIBLE; WITH BIOPSY; 01/11/20 Completed SINGLE OR MULTIPLE 58042 (N/A)1 BACK SURGERIES Completed Cholecystectomy Completed Colonoscopy Completed LASIK Completed POLYP REMOVAL FROM BLADDER C ompleted SINUS SURGERY Completed Tonsillectomy Completed Total hysterectomy Completed 1auto-populated from documented surgical case Social History Social History Type Response Smoking Status Never (less than 100 in life time) entered on: 01/07/20 Assessment and Plan No data available for this section
--- OUTSIDE RECORDS SUMMARY | 2020-01-17 11:05 | XMS REPORT | Continuity of Care Document ---
:1950 Author Organization [facility] t Address [address] [place] [address] Care Team Providers Name Role Phone Amie BRUSH, Joe Primary Care Physician Jamison Howard Attending Clinician PRAVEEN Attending Clinician Unavailable Shelly Attending Clinician Unavailable Kenneth BRUSH, T. Attending Clinician Berhane BRUSH Attending Clinician Alan BRUSH Attending Clinician Russ BRUSH Attending Clinician Lorenzo Lomeli Attending Clinician Anaya Hodge Attending Clinician Ochoa Dumont Attending Clinician Jamison Howard Admitting Clinician BERHANE Admitting Clinician Unavailable Ochoa Dumont Admitting Clinician Payers Payer Name Policy Policy Number Effective Expiration Source Type Date Date [facility] xxxxxxxxxx 2016 [place] INSURANCEMANHATTAN 00:00:00 Method ist LIFE INSURANCExxxxxxxxxx06/29-PresentCommercia l MEDICAREMEDICARE PART xxxxxxxxxxx 2013 Heath sanon A AND 00:00:00 Holiness Bxxxxxxxxxxx2013-P [place]ul, [place] Condition Condition Condition Status Onset Resolution Last Treating Co mments Source Name Details Category Date Date Treatment Clinician Date Upper Upper Disease Active [place] abdominal abdominal 2-17 Meth margarita pain pain 00:00: st 00 [place]ol[place]o Disease Active jose lithiasis lithiasis 2-17 Meth margarita 00:00: st 00 SACROILIIT Diagnosis Active 2017-12-23 Memoria IS 12-18 09:23:00 l 00:00: Herman SACROILIIT 00 IS Active [facility] Problem Active 2017-12-26 Mem oria pain 03-01 01:36:37 l (disorder) Low back 00:00: rmann pain 00 (disorder) Active 03/01/2014 Problem 12/26/2017 Data migrated from [employer] on 02/20/15. [facility] Pain of Problem Active 2017-12-26 Baltazar jan truncal 03-01 01:36:37 l structure Pain of 00:00: Herm roshan (finding) truncal 00 structure (finding) Active 03/01/2014 Problem 12/26/2017 Data migrated from [employer] on 02/20/15. [facility] LOW BACK Condition Active 2014-05-03 M emoria PAIN 03-01 09:29:11 l LOW BACK 00:00: Duc n PAIN 00 Active 03/01/2014 Condition 4 [facility] THORACIC Condition Active 2014-05-03 M emoria PAIN 03-01 09:29:11 l THORACIC 00:00: Duc n PAIN 00 Active 03/01/2014 Condition 4 [facility] CLOSED Condition Active 2014-05-03 Mem oria FRACTURE 02-28 09:29:11 l OF LUMBAR CLOSED 00:00: Delilah nn VERTEBRA FRACTURE 00 WITHOUT OF LUMBAR MENTION OF VERTEBRA SPINAL WITHOUT CORD MENTION OF INJURY SPINAL CORD INJURY Active 02/28/2014 Condition 4 [facility] 15 FOOT Diagnosis Active 2014-01-13 Ak moria FALL 01-13 17:38:00 l 15 FOOT 00:00: Herman FALL 00 Active 01/13/2014 [facility] RIB FXS, Diagnosis Active 2014-01-20 M emoria TP FXS 01-13 21:59:00 l RIB FXS, 00:00: Duc n TP FXS 00 Active 01/13/2014 [facility] Kidney Problem Resolve 2017-12-26 Baltazar jan stone d 01:36:37 l (disorder) Kidney Herm roshan stone (disorder) Resolved Problem 12/26/2017 [facility], [facility], OPID Herman Arthritis Problem Active 2017-12-26 Me moria (disorder) 01:36:37 l [place] Arthritis (disorder) Active Problem 12/26/2017 [facility], [facility] Spine, OPID Herman Diverticul Problem Active 2017-12-26 M emoria itis 01:36:37 l (disorder) Duc n Diverticul itis (disorder) Active Problem 12/26/2017 [facility] Hearing Problem Active 2017-12-26 Baltazar jan loss 01:36:37 l (finding) Hearing Herm roshan loss (finding) Active Problem 12/26/2017 [facility] Hyperchole Problem Active 2017-12-26 M emoria sterolemia 01:36:37 l (disorder) Duc n Hyperchole sterolemia (disorder) Active Problem 12/26/2017 [facility], [facility]o [facility] Spine, OPID Herman Neuropathy Problem Active 2017-12-26 M emoria (disorder) 01:36:37 l [place] Neuropathy (disorder) Active Problem 12/26/2017 [facility], Ortho [facility] Spine, OPID Herman Diabetes Problem Active 2020-01-13 Mem oria mellitus 04:01:44 l (disorder) Diabetes He rmann mellitus (disorder) Active Problem 01/13/2020 [facility], OPID Herman Diverticul Problem Active 2020-01-13 M emoria osis of 04:01:44 l colon [place] Diverticul osis of colon Active Problem 01/13/2020 [facility] Bilateral Problem Active 2020-01-13 Me moria lower limb 04:01:44 l edema Herman Bilateral lower limb edema Active Problem 01/13/2020 [facility] Steatosis Problem Active 2020-01-13 Me moria of liver 04:01:44 l (disorder) Duc n Steatosis of liver (disorder) Active Problem 01/13/2020 [facility] History of Problem Active 2020-01-13 M emoria diverticul 04:01:44 l itis History Herman (situation of ) diverticul itis (situation ) Active Problem 01/13/2020 [facility] History of Problem Active 2020-01-13 M emoria polyp of 04:01:44 l colon History Herman (situation of polyp ) of colon (situation ) Active Problem 01/13/2020 [facility] Hypothyroi Problem Active 2020-01-13 M emoria dism 04:01:44 l (disorder) Duc palacios Hypothyroi dism (disorder) Active Problem 01/13/2020 [facility], [facility], OPID Herman Sleep Problem Active 2020-01-13 Memor ia apnea 04:01:44 l (finding) Sleep Duc n apnea (finding) Active Problem 01/13/2020 [facility] FX Diagnosis Active 2014-01-20 Mem oria EIGHT/MORE 21:59:00 l RIB-CLOSED FX Duc n EIGHT/MORE RIB-CLOSED Active [facility] Personal Problem 2020-01-13 2020-01-13 Memoria history of - 04:01:44 04:01:44 l colonic Personal 17:00: Delilah nn polyps history of 00 colonic polyps 01/11/2020 01/13/2020 [facility] History of Past Illness Condition Condition Condition Status Onset Resolution Last Treating Co mments Source Name Details Category Date Date Treatment Clinician Date Atrial Problem Resolve 2018-062020-01-13 2020-01-13 Memoria fibrillati d - 04:01:44 04:01:44 l on Atrial 00:00: Herman (disorder) fibrillati 00 on (disorder) Resolved 04/29/2019 Problem 01/13/2020 HAD CARDIAC ABLATION [facility] Allergies, Adverse Reactions, Alerts Allergy Allergy Status Severity Reaction(s) Onset Inactive Treating Comm ents Source Name Type Date Date Clinician Iodinate Propensi Active Other (See na Heath velasquezton d ty to Comments) - Methodi Contrast adverse 00:00: st Media reaction 00 s to drug Penicill Propensi Active Other (See na Heath [place] ins ty to Comments) 08-15 Methodi adverse 00:00: st reaction 00 s to drug Succinyl Propensi Active Other (See na Ho talita choline ty to Comments) 08-15 Method i adverse 00:00: st reaction 00 s to drug penicill penicill Active Memori a ins<sup> ins<sup> 03-01 l 1</sup> 1</sup> 05:00: Herman PENICILL PENICILL Active Memori a IN [place] 03-01 l 00:00: Herman 00 iodine iodine Active Memoria l [place] penicill penicill Active Memori a ins ins l [place] penicill penicill Active Memori a in in l Herman succinyl succinyl Active Memori a choline choline l [place] iodinate iodinate Active Memori a d d l [place] Duc n trast trast dyes dyes Social History Social Habit Start Date Stop Date Quantity Comments Source Sex Assigned At [facility] ethodist Alcohol intake 2019-08-15 2019-08-15 Ex-drinker [facility] thodist 00:00:00 00:00:00 (finding) Social History 2014-01-14 2014-01-14 [facility] 01:52:07 01:52:07 Smoking Status Start Date Stop Date Source Social History [facility] Medications Ordered Filled Start Stop Current Ordering Indication Dosage Frequency Signature Comments Components Source Medication Medication Date Date Medication? Clinician (SIG) Name Name [facility] No 600 mL, Memoria Medication 7-15 Soln-IV, l 14:26: IV, Once, [place] 00 first dose 01/11/20 9:26:00 CDT, stop date 01/11/20 9:26:00 CDT propofol No 50 mg = 5 Baltazar jan 7-15 mL, l 14:08: Emulsion, [place] 00 IV, Once, first dose 01/11/20 9:08:00 CDT, stop date 01/11/20 9:08:00 CDT propofol No 100 mg = Memor ia 7-15 10 mL, l 14:04: Emulsion, Herman 00 IV, Once, first dose 01/11/20 9:04:00 CDT, stop date 01/11/20 9:04:00 CDT propofol 2020-0 No 100 mg = Memor ia 7-15 10 mL, l 14:00: Emulsion, 00 IV, Once, first dose 01/11/20 9:00:00 CDT, stop date 01/11/20 9:00:00 CDT lidocaine 2020-0 No 30 mg = Memor ia 7-15 1.5 mL, l 13:56: Injection, IV, Once, first dose 01/11/20 8:56:00 CDT, stop date 01/11/20 8:56:00 CDT propofol 2020-0 No 100 mg = Memor ia 7-15 10 mL, l 13:56: Emulsion, IV, Once, first dose 01/11/20 8:56:00 CDT, stop date 01/11/20 8:56:00 CDT LR 1,000 mL 2020-0 No 1,000 mL, M emoria 7-15 IV, 30 l 12:27: mL/hr, start date 01/11/20 7:27:00 CDT, 1.88, m2 Lidocaine 2020-0 No 0.2 mL, Memor ia 2% 0.2 mL 7-15 Injection, l IV Start 12:27: Subcutaneo [facility] [[facility]] 00 , Once PRN for other (see comment), first dose 01/11/20 7:27:00 CDT furosemide 2020-0 Yes 40 mg = 1 Me moria 40 mg oral 7-11 tabs, l tablet 20:55: Oral, [place] 00 Daily, BLE EDEMA Metformin 2020-0 Yes 1,000 mg, Mem oria 7-11 Oral, BID, l 20:54: DM Thyroxine 2020-0 Yes 75 mcg, Memor ia 7-11 Oral, l 20:54: Daily, HYPOTHYROI DISM sitagliptin 2020-0 Yes 100 mg = 1 Memoria 100 MG Oral 7-11 tabs, l Tablet 20:37: Oral, [place] [Januvia] 00 Daily, DM glimepiride 2020-0 Yes 4 mg = 1 Me moria 4 mg oral 7-11 tabs, l tablet 20:36: Oral, BID, Delilah nn 00 DM atorvastati 2020-0 Yes 10 mg = 1 M emoria n 10 mg 7-11 tabs, l oral tablet 20:35: Oral, Delilah nn 00 Daily, HIGH CHOL apixaban 2020-0 Yes 2.5mg Q.5D Take 2.5 [place] (ELIQUIS) 2-21 mg by Methodi 2.5 mg 14:29: mouth 2 st tablet 53 (two) times a day. amIODarone 2020-0 Yes 200mg QD Take 200 [place] (PACERONE) 2-21 mg by Methodi 200 MG 14:29: mouth st tablet 53 daily. metFORMIN 2020-0 Yes 1000mg Q.5D Take 1,000 [place] (GLUCOPHAGE 2-21 mg by Methodi ) 1,000 mg 14:29: mouth 2 st tablet 53 (two) times a day with meals. glimepiride 2020-0 Yes 2mg Q.5D Take 2 mg [place] (AMARYL) 2 2-21 by mouth 2 Met hodi MG tablet 14:29: (two) st 53 times a day. SITagliptin 2020-0 Yes 100mg QD Take 100 [place] (JANUVIA) 2-21 mg by Methodi 100 MG 14:29: mouth st tablet 53 daily. furosemide 2020-0 Yes 20mg Q.5D Take 20 mg [place] (LASIX) 20 2-21 by mouth 2 Met hodi mg tablet 14:29: (two) st 53 times a day. atorvastati 2020-0 Yes 10mg QD Take 10 mg [place] n (LIPITOR) 2-21 by mouth Meth margarita 10 MG 14:29: daily. st tablet 53 levothyroxi 2020-0 Yes 75ug QD Take 75 Jose ston ne 2-21 mcg by Methodi (SYNTHROID) 14:29: mouth st 75 mcg 53 daily. tablet magnesium 2020-0 Yes 2{tbl} Q.5D Take 2 [place] chloride 2-21 tablets by Metho di (SLOW-MAG) 14:29: mouth 2 st 71.5 mg 53 (two) tablet,campbell times a yed release day. (DR/EC) potassium 2020-0 Yes 1{tbl} Q.5D Take 1 [place] chloride 2-21 tablet by Method i (KLOR-CON 14:29: mouth 2 st M10 ORAL) 53 (two) times a day. pantoprazol 2020-0 Yes 40mg QD Take 40 mg [place] e 2-21 by mouth Methodi (PROTONIX) 14:29: daily. st 40 MG EC 53 tablet sucralfate 2020-0 Yes 1g Q.25D Take 1 g [place] (CARAFATE) 2-21 by mouth 4 Met hodi 1 gram 14:29: (four) st tablet 53 times a day. ondansetron 2019-2019- No 4mg Q8H Take 1 Jose ston ODT 2-21 02-26 tablet (4 Methodi (ZOFRAN-ODT 00:00: 23:59 mg total) st ) 4 MG 00 :00 by mouth disintegrat every 8 ing tablet (eight) hours as needed for nausea or vomiting for up to 5 days. azithromyci 2019-2019- No 250mg QD Take 250 [place] n 2-13 02-21 mg by Methodi (ZITHROMAX) 00:00: 00:[address] 250 MG 00 :00 daily. tablet Take 2 tablets the first day, then 1 tablet daily for 4 days. Acetaminoph Yes Notes: Baltazar jan en 10 MG/ML 12-23 Infuse l Injectable 16:32: over 15 Herm roshan Solution 00 minutes Do not exceed 4gm/day of acetaminop hen MEDICATION WASTE Product Size: 1000 mg Product Wasted: ___ mg Lactated No 1,000 mL, Baltazar jan Ringers IV 12-23 Rate: 125 l 1,000 mL 16:32: ml/hr, Herman 00 Infuse over: 8 hr, Route: IV, Dosing Weight 71.818 kg, Total Volume: 1,000, Start date: 12/23/17 11:32:00 CDT, Duration: 30 day, Stop date: 01/22/18 11:31:00 CDT, 1.87, m2 Ondansetron No Notes: Baltazar jan - (Same as: l 16:32: Zofran [place] 00 ODT) Hydromorpho No Notes: Baltazar jan ne - Same as l 16:32: Dilaudid [place] 00 Acetaminoph No Notes: Do M emoria en 325 MG / 12-23 not exceed l Hydrocodone 16:32: 4gm/day of Herman Bitartrate 00 acetaminop 10 MG Oral hen. Tablet (Same as: [place] 325/10) Solu-Medrol 0 No 125 mg, Mem oria 12-23 Route: l 15:04: IVP, Drug form: INJ, ONCE, Dosing Weight 71.364, kg, Start date: 12/23/17 10:04:00 CDT, Stop date: 12/23/17 10:04:00 CDT Famotidine No 20 mg, Memor ia 12-23 Route: l 15:04: IVP, ONCE, Dosing Weight 71.364, kg, Start date: 12/23/17 10:04:00 CDT, Stop date: 12/23/17 10:04:00 CDT Diphenhydra No 25 mg, Baltazar jan mine 12-23 Route: l 15:04: IVP, ONCE, Dosing Weight 71.364, kg, Start date: 12/23/17 10:04:00 CDT, Stop date: 12/23/17 10:04:00 CDT [place] No Notes: Memoria Flush 0.9% 12-23 Same as: l 15:03: BD Posiflush Sterile Lactated No 1,000 mL, Baltazar jan Ringers IV 12-23 Rate: 125 l 1,000 mL 15:03: ml/hr, Infuse over: 8 hr, Route: IV, Dosing Weight 71.364 kg, Total Volume: 1,000, Start date: 12/23/17 10:03:00 CDT, Duration: 30 day, Stop date: 01/22/18 10:02:00 CDT, 1.86, m2 thyroid Yes 180 mg = 1 Baltazar jan (JAIL) 180 - tab, PO, l MG Oral 18:25: Daily, 0 Duc n Tablet 00 Refill(s) [[place] Thyroid] Metformin Yes 1,000 mg = Me moria hydrochlori 22 2 tab, PO, l de 500 MG 18:24: Bedtime, # He rmann Oral Tablet 00 60 tab, 0 Refill(s) LIDODERM 5 No apply to Mem oria % PTCH 9-03 the l 00:00: affected area 12h on 12h off per 24h period prn pain. CYCLOBENZAP Yes 1 tab po Me moria RINE HCL 10 9-03 q8h prn l MG TABS 00:00: muscle spasms GLIPIZIDE-M Yes Memori a ETFORMIN 9-03 l HCL TABS 00:00: GLIMEPIRIDE Yes Memori a TABS 9-03 l 00:00: CRESTOR Yes Memoria TABS 9-03 l 00:00: CELEBREX Yes Memoria CAPS 9-03 l 00:00: BABY ASPRIN Yes Memori a 9-03 l 00:00: ARMOUR Yes Memoria THYROID 9-03 l TABS 00:00: CYCLOBENZAP No 1 tab po Me moria RINE HCL 10 9-03 q8h prn l MG TABS 00:00: muscle spasms Acetaminoph Yes 1 tab, PO, Memoria en 325 MG / 7-22 Q4H, Pain l Hydrocodone 18:11: Score 1-3, Herman Bitartrate 00 # 30 tab, 10 MG Oral 0 Tablet Refill(s) Metformin No Notes: Memori a 7-21 (Same as: l 22:00: Glucophage ) Take with meal Glyburide No Notes: Memori a 7-21 (Same as: l 14:00: Micronase, Diabeta) Take with meals. Metformin No Notes: Memori a 7-21 Same as l 13:00: Glucophage Insulin, No 60 Memoria Regular, 7-21 units) l Pork 02:45: Stable for 28 days at room temperatur e Expires in days from ____Date Flexeril No Notes: Memoria 7-20 (Same As: l 22:51: Flexeril) Diphenhydra No Notes: Baltazar jan mine 7-20 (Same as: l 13:36: Benadryl) Insulin, No 60 Memoria Regular, 7-20 units) l Pork 02:40: Stable for 28 days at room temperatur e Expires in days from ____Date Metformin No 1.5 tab, Baltazar jan hydrochlori 7-19 Route: PO, l de 1000 MG 22:00: QPM, Herman Oral Tablet 00 Dosing Weight 88.636, kg, Start date: 01/14/14 17:00:00, Duration: 30 day, Stop date: 02/12/14 17:00:00 Morphine No Notes: Memoria 7-19 (Same l 18:36: as:MORPhin [place] 00 e Sulfate) Morphine No Notes: Memoria 7-19 (Same l 18:02: as:MORPhin [place] 00 e Sulfate) Amaryl No Notes: Memoria 7-19 (Same as: l 14:00: Amaryl) [place] No 100 mg, Memoria Thyroid 19 Route: PO, l 14:00: Drug form: [place] 00 TAB, Daily, Dosing Weight 88.636, kg, Start date: 01/14/14 9:00:00, Duration: 30 day, Stop date: 02/12/14 9:00:00 Glyburide No 4 mg, Memoria 7-19 Route: PO, l 14:00: Drug form: Herman 00 TAB, BID, Dosing Weight 88.636, kg, Start date: 01/14/14 9:00:00, Duration: 30 day, Stop date: 02/12/14 17:00:00 Metformin No 1,000 mg, Mem oria 19 Route: PO, l 14:00: Drug form: Herman 00 TAB, Daily, Dosing Weight 88.636, kg, Start date: 01/14/14 9:00:00, Duration: 30 day, Stop date: 02/12/14 9:00:00 Insulin, No 60 Memoria Regular, 7-19 units) l Pork 13:26: Stable for 28 days at room temperatur e Expires in days from ____Date Dextrose No 12.5 gm, Memor ia 50% Syringe 01-14 25 mL, l 13:26: Route: IVP, Drug Form: INJ, Dosing Weight 88.636, kg, PRN, PRN Blood Glucose Results, Start date: 01/14/14 8:26:00, Duration: 30 day, Stop date: 02/13/14 8:25:00 Glucagon No 1 mg, Memoria 01-14 Route: IM, l 13:26: Drug form: PDR/INJ, PRN, Dosing Weight 88.636, kg, PRN Blood Glucose Results, Start date: 01/14/14 8:26:00, Duration: 30 day, Stop date: 02/13/14 8:25:00 [place] No Notes: Memoria Thyroid 01-14 (Same As: l 11:30: Thyroid, S-P-T) Ketorolac No 4 days Memor ia 01-14 l 05:00: celecoxib No Notes: Memori a - NSAID. l 02:00: Please check indication . Not for seizure. (Same As: CeleBREX ) Acetaminoph No 1 tab, Baltazar jan en 325 MG / 01-14 Route: PO, l Hydrocodone 00:35: Dosing Herm roshan Bitartrate 00 Weight 10 MG Oral 81.818, Tablet kg, ONCE, [[place] Start 325] date: 01/13/14 19:35:00, Stop date: 01/13/14 19:35:00 Enoxaparin No Notes: Memor ia -19 (Same as: l 00:00: Lovenox) [place] Yes 100 mg, Memoria Thyroid 7-18 PO, Daily, l 23:59: 0 Refill(s) celecoxib Yes Special Memor ia 100 MG Oral 18 Instructio l Capsule 23:58: ns: prn Herman [Celebrex] 00 Rosuvastati Yes 5 mg = 1 Me moria n calcium 5 7-18 tab, PO, l MG Oral 23:58: Bedtime, 0 Herm roshan Tablet 00 Refill(s) [Crestor] Glyburide Yes 4 mg, PO, Mem oria 7-18 BID, 0 l 23:57: Refill(s) [place] 00 Metformin Yes Special Memor ia 18 Instructio l 23:56: ns: [place] 00 1,000mg in the mornig and 1500 mg in the evening iodixanol No Special Memor ia 18 Instructio l 23:42: ns: Weight Herman 00 = 75 - 94kg -- "To be infused by Radiology Staff ONLY" Bisacodyl No Notes: Memori a -18 (Same As: l 23:30: Dulcolax, Herman 00 Correctol) (Do Not Crush) "Do Not Crush" Docusate No Notes: Memoria 18 (Same as: l 23:30: Colace) [place] 00 (Do Not Crush) Acetaminoph No Notes: Do M emoria en 325 MG / 18 not exceed l Hydrocodone 23:30: 4gm/day of Herman Bitartrate 00 acetaminop 10 MG Oral hen. Tablet (Same as: [place] 325/10) Vital Signs Vital Name Observation Time Observation Value Comments Source Respitory Rate 2020-01-11 15:08:00 Memori al [place] Systolic (mm Hg) 2020-01-11 15:08:00 Baltazar rial [place] Diastolic (mm Hg) 2020-01-11 15:08:00 Mem orial [place] Heart Rate 2020-01-11 14:50:00 [facility] [place] Respitory Rate 2020-01-11 14:50:00 Memori al [place] Systolic (mm Hg) 2020-01-11 14:50:00 Baltazar rial [place] Diastolic (mm Hg) 2020-01-11 14:50:00 Mem orial [place] Heart Rate 2020-01-11 14:40:00 [facility] [place] Respitory Rate 2020-01-11 14:40:00 Memori al [place] Systolic (mm Hg) 2020-01-11 14:40:00 Baltazar rial [place] Diastolic (mm Hg) 2020-01-11 14:40:00 Mem orial [place] Heart Rate 2020-01-11 14:30:00 [facility] [place] Temperature Oral (F) 2020-01-11 14:20:00 36.2 Katalina [facility] [place] Temperature Oral (F) 2020-01-11 12:33:00 37 Katalina [facility] [place] Height 2020-01-11 12:33:00 167.6 cm [facility] [place] Height 2020-01-07 20:35:00 167.6 cm [facility] [place] Systolic blood 2019-08-19 11:45:57 135 mm[Hg] Donalto n Holiness pressure Diastolic blood 2019-08-19 11:45:57 62 mm[Hg] Donalt on Holiness pressure Heart rate 2019-08-19 11:45:57 62 /min [place] [facility] Body temperature 2019-08-19 11:45:57 36.83 Katalina [place] Respiratory rate 2019-08-19 11:45:57 17 /min [place] Oxygen saturation in 2019-08-19 11:45:57 99 /min [place] [facility] Arterial blood by Pulse oximetry Body height 2019-08-15 15:55:00 165.1 cm [place] [facility] Body weight 2019-08-15 15:55:00 72.576 kg [place] [facility] BMI 2019-08-15 15:55:00 26.63 kg/m2 [place] [facility] Respitory Rate 2017-12-23 17:00:00 Memori al [place] Systolic (mm Hg) 2017-12-23 17:00:00 Baltazar rial [place] Diastolic (mm Hg) 2017-12-23 17:00:00 Mem orial [place] Systolic (mm Hg) 2017-12-23 16:45:00 Baltazar rial [place] Diastolic (mm Hg) 2017-12-23 16:45:00 Mem orial [place] Respitory Rate 2017-12-23 16:45:00 Memori al [place] Respitory Rate 2017-12-23 16:34:00 Memori al [place] Systolic (mm Hg) 2017-12-23 16:34:00 Baltazar rial [place] Diastolic (mm Hg) 2017-12-23 16:34:00 Mem orial [place] BMI Calculated 2017-12-23 15:40:00 Memori al [place] Weight 2017-12-23 15:40:00 [facility] [place] Height 2017-12-18 18:10:00 172.72 cm [facility] [place] Weight 2014-05-03 15:29:11 [facility] [place] Height 2014-05-03 15:29:11 [facility] [place] Temperature Oral (F) 2014-05-03 15:29:11 98.4 F [facility] [place] Heart Rate 2014-05-03 15:29:11 [facility] [place] Systolic (mm Hg) 2014-05-03 15:29:11 Baltazar rial [place] Diastolic (mm Hg) 2014-05-03 15:29:11 Mem orial [place] Respitory Rate 2014-05-03 15:29:11 Memori al [place] Weight 2014-03-01 14:33:18 [facility] [place] Height 2014-03-01 14:33:18 [facility] [place] Temperature Oral (F) 2014-03-01 14:33:18 97.7 F [facility] [place] Respitory Rate 2014-03-01 14:33:18 Memori al [place] Heart Rate 2014-03-01 14:33:18 [facility] [place] Systolic (mm Hg) 2014-03-01 14:33:18 Baltazar rial Herman Diastolic (mm Hg) 2014-03-01 14:33:18 Mem orial [place] Temperature Oral (F) 2014-01-17 21:11:00 98.3 F [facility] [place] Heart Rate 2014-01-17 21:11:00 [facility] Herman Respitory Rate 2014-01-17 21:11:00 Memori al [place] Systolic (mm Hg) 2014-01-17 21:11:00 Baltazar rial [place] Diastolic (mm Hg) 2014-01-17 21:11:00 Mem orial [place] Systolic (mm Hg) 2014-01-17 16:58:00 Baltazar rial [place] Diastolic (mm Hg) 2014-01-17 16:58:00 Mem orial [place] Respitory Rate 2014-01-17 16:58:00 Memori al [place] Heart Rate 2014-01-17 16:58:00 [facility] [place] Temperature Oral (F) 2014-01-17 16:58:00 97.9 F [facility] [place] Systolic (mm Hg) 2014-01-17 12:59:00 Baltazar rial [place] Respitory Rate 2014-01-17 12:59:00 Memori al [place] Temperature Oral (F) 2014-01-17 12:59:00 97.7 F [facility] [place] Diastolic (mm Hg) 2014-01-17 12:59:00 Mem orial [place] Heart Rate 2014-01-17 12:59:00 [facility] [place] Weight 2014-01-14 01:42:00 [facility] Herman BMI Calculated 2014-01-14 01:42:00 Memori al [place] Height 2014-01-14 01:42:00 170.18 cm [facility] [place] Height 2014-01-14 01:15:00 165.1 cm [facility] [place] BMI Calculated 2014-01-14 01:15:00 Memori al [place] Weight 2014-01-14 01:15:00 [facility] [place] Weight 2014-01-13 21:44:00 [facility] BMI Calculated 2014-01-13 21:44:00 Memori al [place] Height 2014-01-13 21:44:00 165.1 cm [facility] Procedures Procedure Date / Time Performing Clinician Source Performed COLONOSCOPY FLEXIBLE; WITH 2020-01-11 14:00:00 M [facility] BIOPSY; SINGLE OR MULTIPLE [address]133 (N/A)<sup>1</sup> CORONAVIRUS SARS-COV 2 2019-11-01 14:00:00 Kaylene Nuñez on Holiness Omwanghe POC GLUCOSE 2019-08-19 11:47:00 PosMaikol velez Meth odist POC GLUCOSE 2019-08-19 07:43:00 PosMaikol velez Meth odist HC COMPLETE BLD COUNT 2019-08-19 06:08:00 Pee Howard W/AUTO DIFF BASIC METABOLIC PANEL 2019-08-19 06:08:00 Estella Marie ESTIMATED GFR 2019-08-19 06:08:00 Pee Howard POC GLUCOSE 2019-08-19 03:23:00 PosMaikol velez Meth odist POC GLUCOSE 2019-08-19 01:06:00 PosMaikol velez Meth odist POC GLUCOSE 2019-08-18 20:37:00 PosMaikol velez Meth odist OR [place] < 1 HOUR 2019-08-18 13:30:00 Pee Howard Holiness POC GLUCOSE 2019-08-18 13:28:00 PosagustinAleksanderMaikolsheri Rooney Meth odist ERCP WITH STONE REMOVAL 2019-08-18 12:49:00 Pee Howard Holiness POC GLUCOSE 2019-08-18 07:50:00 PosagustinMaikol Rooney Meth odist HC COMPLETE BLD COUNT 2019-08-18 05:50:00 Pee Howard Holiness W/AUTO DIFF HEPATIC FUNCTION PANEL 2019-08-18 05:50:00 PosaniMaikol on Holiness PARTIAL THROMBOPLASTIN 2019-08-18 05:50:00 PosMaikol velez on Holiness TIME (PTT) PROTHROMBIN TIME WITH INR 2019-08-18 05:50:00 PosMaikol velez Holiness POC GLUCOSE 2019-08-18 03:44:00 PosMaikol velez Meth odist POC GLUCOSE 2019-08-18 00:23:00 PosMaikol velez Meth odist POC GLUCOSE 2019-08-17 20:32:00 PosaniMaikol Meth odist POC GLUCOSE 2019-08-17 16:17:00 Posagustin Maikolsheri Rooney Meth odist POC GLUCOSE 2019-08-17 12:05:00 Hellen Franklin ethodist POC GLUCOSE 2019-08-17 07:37:00 Hellen Franklin ethodist HC COMPLETE BLD COUNT 2019-08-17 04:25:00 Pee Howard Holiness W/AUTO DIFF BASIC METABOLIC PANEL 2019-08-17 04:25:00 PosMaikol velez n [facility] HEPATIC FUNCTION PANEL 2019-08-17 04:25:00 PosMaikol velez on [facility] ESTIMATED GFR 2019-08-17 04:25:00 Posagustin Maikol Rooney Meth odist POC GLUCOSE 2019-08-17 04:20:00 Hellen Franklin ethodist POC GLUCOSE 2019-08-17 00:20:00 CliffordarleneHellen lu ethodist ECG 12-LEAD 2019-08-16 23:33:10 VacPee lucas POC GLUCOSE 2019-08-16 20:11:00 Hellen Franklin ethodist POC GLUCOSE 2019-08-16 16:24:00 Hellen Franklin ethodist US HEPATIC 2019-08-16 12:13:27 kristoferAniyah DarlinAria Rooney Meth odist POC GLUCOSE 2019-08-16 11:43:00 Hellen Franklin ethodist POC GLUCOSE 2019-08-16 07:48:00 Hellen Franklin ethodist POC GLUCOSE 2019-08-16 05:33:00 Hellen Franklin ethodist TROPONIN 2019-08-16 02:00:00 Pee Howard POC GLUCOSE 2019-08-15 22:04:00 Hellen Franklin ethodist TROPONIN 2019-08-15 20:34:[address] RENAL STONE PROTOCOL 2019-08-15 18:39:03 Apollo Cooper XR CHEST 1 VW PORTABLE 2019-08-15 17:36:52 Apollo Cooper ECG ED PRELIMINARY 2019-08-15 17:15:54 Apollo Cooper INTERPRETATION HC COMPLETE BLD COUNT 2019-08-15 17:10:00 Apollo Cooper W/AUTO DIFF PROTHROMBIN TIME WITH INR 2019-08-15 17:10:00 Apollo Cooper PARTIAL THROMBOPLASTIN 2019-08-15 17:10:00 Apollo Cooper TIME (PTT) COMPREHENSIVE METABOLIC 2019-08-15 17:10:00 Apollo Cooper PANEL TROPONIN 2019-08-15 17:10:00 Pee Howard LIPASE LEVEL 2019-08-15 17:10:00 Apollo Cooper B NATRIURETIC PEPTIDE 2019-08-15 17:10:00 Apollo Cooper ESTIMATED GFR 2019-08-15 17:10:00 Apollo Cooperst ECG 12-LEAD 2019-08-15 15:48:41 Apollo Cooper ethodist Fusion of lumbar 2013-06-29 00:00:00 [facility] spine<sup>1</sup> Laminectomy<sup>2</sup> 2001-06-29 00:00:00 Baltazar rial [place] Carpal tunnel release [facility] ermann Hysterectomy [facility] Tonsillectomy and [facility] nn adenoidectomy BACK SURGERIES [facility] Cholecystectomy [facility] Colonoscopy [facility] LASIK [facility] POLYP REMOVAL FROM BLADDER [facility] Total hysterectomy [facility] Plan of Care Planned Activity Planned Date Details Comments Source Future Scheduled 2020-01-28 INFLUENZA VACCINE [place] [facility] Test 00:00:00 [code = INFLUENZA VACCINE] Future Scheduled 2013 65+ PNEUMOCOCCAL [facility] Test 00:00:00 VACCINE (2 of 2 - PPSV23) [code = 65+ PNEUMOCOCCAL VACCINE (2 of 2 - PPSV23)] Future Scheduled 1998 BREAST CANCER Rooney Ak thodist Test 00:00:00 SCREENING [code = BREAST CANCER SCREENING] Future Scheduled 1998 COLONOSCOPY SCREENING [place] [facility] Test 00:00:00 [code = COLONOSCOPY SCREENING] Future Scheduled 1998 SHINGLES VACCINES (#1) [place] [facility] 00:00:00 [code = SHINGLES VACCINES (#1)] Future Scheduled 1958 DIABETIC FOOT EXAM [place] [facility] Test 00:00:00 [code = DIABETIC FOOT EXAM] Future Scheduled 1958 URINE MICROALBUMIN [place] [facility] 00:00:00 [code = URINE MICROALBUMIN] Future Scheduled 1948 DIABETIC RETINAL EYE [place] ston [facility] Test 00:00:00 EXAM [code = DIABETIC RETINAL EYE EXAM] Encounters Start End Encounter Admission Attending Care Care Encounter Source Date/Time Date/Time Type Type Clinicians Facility Department ID 2020-01-11 2020-01-11 Outpatient Lee, [id number] 07:06:13 10:17:00 Pee Swift 8 2019-11-01 2019-11-01 [facility] [id number] [place] 00:00:00 00:00:00 KAYLENE [address] 2019-10-10 2019-10-10 Telemedici Shelly [facility] [id number] 07:16:30 07:46:30 ne Visit Ayah SPECIALTY [id number] [place] [id number] [place] [id number] 2019-09-05 2019-09-05 Outpatient Lee, [id number] 14:18:30 23:59:59 Pee Swift 8 2019-08-15 2019-08-19 Inpatient POSANI, [facility] [id number] [place] 00:00:00 00:00:00 MAIKOL 327 Method i 2017-12-23 2017-12-23 Outpatient Yani [facility] [id number] 08:43:00 23:59:00 Anand Ventura 2014-05-03 2014-05-[address] [facility] [id number] 08:52:00 23:59:00 Pako 01 Anaya 2014-03-01 2014-03-[address] [facility] [id number] 07:46:00 23:59:00 Pako 00 Anaya 2014-01-13 2014-01-[address] [facility] [id number] 16:41:00 16:40:00 Osorio Packer Results Test Description Test Time Test Comments Results Result [facility] e Comments LABORATORY 2020-01-[address] [place] [address] 12:48:00 Herman [place] < 1 Hour 2019-08-29 [facility] 09:41:[address] 08/29/2019 9:44 AM CSTEXAMINATION: OR [place] < 1 HOURC-arm fluoroscopy was requested in OR. IMPRESSION:Separa te operative report will be issued by the physician performing the procedure.[id number] POC glucose 2019-08-19 11:48:21 Test Item Value Reference Range Interpretation Comme nts POC glucose (test code = 180 mg/dL 65-99 H Ope rator Name: Joe [id number]) ID: [id number] olga: RN Notified Lab Interpretation (test code = Abnormal 98233-7) Toribio MethodistBasic metabolic zbpjl1466-96-05 06:53:50 Test Item Value Reference Range Interpretation Comments Sodium (test code = 2951-2) 140 135- 148 mEq/L Potassium (test code = 2823-3) 3.6 3.5- 5.0 mEq/L Chloride (test code = 2075-0) 103 98- 112 mEq/L CO2 (test code = 8-9) 24 24- 31 mEq/L Anion gap (test code = 23036-4) 13@ANIO 7- 15 mEq/L BUN (test code = 3094-0) 7 mg/dL 8-23 L Creatinine (test code = 2160-0) 0.84 mg/dL 0.5-0.9 Glucose (test code = 2345-7) 148 mg/dL 65-99 H Calcium (test code = 55532-8) 9.4 mg/dL 8.8-10.2 Lab Interpretation (test code = Abnormal 68168-4) Toribio MethodistEstimated [id number] 06:53:50 Test Item Value Reference Range Interpretation Comments Estimated GFR (test 70 mL/min/1.73 m2 [facility] Units code = 5488) InterpretationG 1 >=90 Normal or highG2 60-89 Mildly vopxnrnszW4v 45-59 Mildly to mode rately dxwbhcafeI1h 30-44 Moderately to severely decreasedG4 15-29 Severely decre asedG5 <15 Kidn ey failureThe eGFR was calculated deanna bass the Chronic Kidney Disease Epidemiology Co llaboration (CKD-EPI) equat ion. Interpretation is based on recommendations of the National Kidney Foundation-Kidn ey Disease Outcomes Qualit y Initiative (NKF-KDOQI) pub lished in 2014. Rooney MethodistCBC with platelet and ezvkbbkzajlo0844-51-79 06:43:27 Test Item Value Reference Range Interpretation Comments WBC (test code = 01939-8) 7.0 4.5- 11.0 k/uL RBC (test code = 26682-3) 3.89 m/uL 4.2-5.5 L HGB (test code = 718-7) 11.8 g/dL 12-16 L HCT (test code = 4544-3) 36.1 % 37-47 L MCV (test code = 787-2) 92.8 fL 82-100 MCH (test code = 785-6) 30.3 pg 27-34 MCHC (test code = 786-4) 32.7 g/dL 31-37 RDW - SD (test code = 58123-7) 52.3 fL 37-55 MPV (test code = 63002-4) 12.1 fL 6.9-11 H Platelet count (test code = 198 K/uL 150-400 55392-8) Nucleated RBC (test code = 66775-8) 0.00 /100 WBC Neutrophils (test code = 68321-1) 55.7 % 39-69 Lymphocytes (test code = 43126-0) 31.8 % 25-45 Monocytes (test code = 12388-7) 9.0 % 0-10 Eosinophils (test code = 53234-8) 2.4 % 0-5 Basophils (test code = 30184-0) 1.0 % 0-1 Immature granulocytes (test code = 0.1 % 0-1 31988-5) Lab Interpretation (test code = Abnormal 83499-7) Toribio MethodistHepatic function uetaf7058-25-87 07:00:09 Test Item Value Reference Range Interpretation Comments Albumin (test code = 1751-7) 3.5 g/dL 3.5-5 Total bilirubin (test code = 0.6 mg/dL 0.2-1.2 1974-2) Bilirubin direct (test code = <0.2 0-0.3 1967-7) Alkaline phosphatase (test code = 69 U/L 35-104 6768-6) Protein (test code = 2885-2) 5.8 g/dL 6.3-8.3 L ALT (test code = 1742-6) 93 U/L 5-50 H AST (test code = 1920-8) 69 U/L 10-35 H Lab Interpretation (test code = Abnormal 40870-6) Toribio MethodistPartial thromboplastin time, kytfagltz3539-47-10 06:37:49 Test Item Value Reference Range Interpretation Comments PTT (test code = 32.2 23.0- 36.0 sec PTT thera peutic range for 3173-2) unfractionated heparin is61.0-112.0 se conds which corresponds to Anti-Xa0.3-0.7 U/ml. Toribio MethodistProthrombin time with CWS6181-57-95 06:35:44 Test Item Value Reference Range Interpretation Comments Prothrombin time (test 14.4 11.5- 14.5 sec code = 5902-2) INR (test code = 1.1 The Interna tional 32251-5) Normalized Rati o (INR) is a therapeutic m onitoring tool for patien ts who are stable on oral anticoagulant t herapy. An INR of 2.0-3.0 is suggested for d eep vein thrombosis/pulm onary embolism. Toribio MethodistECG 12 fadp0197-27-11 21:17:44 Test Item Value Reference Range Interpretation Comments Ventricular rate (test 54 code = 253) Atrial rate (test code 54 = 255) LA interval (test code 144 = 266) QRSD interval (test 84 code = 260) QT interval (test code 484 = 264) QTC interval (test code 458 = 265) P axis 1 (test code = 61 267) QRS axis 1 (test code = 14 268) T wave axis (test code 92 = 270) EKG impression (test Sinus bradycardia-Low code = 273) voltage QRS-Cannot rule out Anterior infarct , age undetermined-Abnormal ECG-In automated comparison with ECG of -JUL-2019 15:48,-Minimal criteria for Anterior infarct are now present- Toribio PennUS Wsycbua3425-41-46 13:13:53Hm Interface, Radiology Results Incoming - 08/16/2019 1:16 PM CSTEXAMINATION: US HEPATICCLINICAL HISTORY: abdnormal CT- cirrhosisCOMPARISON: CT abdomen pelvis without contrast from 08/15/2019IMPRESSION:Liver: The liver is mildly enlarged measuring 15.4 cm in greatest craniocaudal dimension. There is a nonspecific coarse echotexture, however, the contour is smooth. No intrahepatic biliary ductal dilatation or hepatic mass.Portal vein: The portal vein is normal in size and demonstrates normal hepatopedal flow. The diameter of the portal vein measures 1.1 cm.Gallbladder: The patient is status post cholecystectomy.Common bile duct: Common bile duct measures 0.8 cm which is prominent, however, likely within normal limits given cholecystectomy.Ascites: NoneRight pleural effusion: [id number] TxyasguttYxphkvvz6973-18-25 02:50:44 Test Item Value Reference Range Interpretation Comments Troponin (test code 0.009 ng/mL 0-0.04 In patie nts suspected = 30632-7) of having a susie cardial infarction, hany ng with all other appro priate clinical measur es and actions includi ng ECG and other diagn ostics as appropriate, measure Ultra TnI at 0 hrs and at 3 hrs.Myocar dial infarction VERY LIKELYThe 0 hr TnI level is > 0.10 ng/mL -------- -------- -------- --------Myocard ial infarction LIKE LYThe 0 hr TnI level is > 0.04 ng/mL and 3 hr level is increased or de creased by at least 0.0 20 ng/mL -------- -------- -------- ---Myocardial infarction VERY UNLIKELYBoth th e 0 hr and 3 hr TnI le vels <= 0.04 ng/mL(with in normal limits) OR 0 hr is > 0.04 ng/mL and 3 hr is increased OR decreased by le ss than 0.020 ng/mL [facility] Renal Stone Ixdjdznx9485-68-77 19:05:22 Interface, Radiology Results 08/15/2019 7:08 PM CSTEXAMINATION: CT RENAL STONE PROTOCOLCLINICAL HISTORY: Epigastric pain recent cholecystectomyTECHNIQUE: Noncontrast images of the abdomen and pelvis were obtained without intravenous iodinated contrast. The lack of intravenous contrast limits assessment of the solid organs. CT imaging was performed with iterative reconstruction technique and/or automated exposure control to reduce radiation dose.COMPARISON: None availableFINDINGS:LOWER THORAX: Clear lung bases. Small left lingular calcified granuloma. Mitral an aortic annular calcifications are present. Coronary calcifications are seen in the left main, LAD distributions.ABDOMEN:Kidneys: 5 mm calculus is seen in the right lower pole. No hydronephrosis. A 3.4 cm simple cyst is seen in the medial left upper pole. A tiny 2 mm focus of calcification is seen in the left upper pole adjacent to the lateral aspect of the simple cyst, could be calyceal or vascular, however no hydronephrosis.Liver: Mildly lobulated hepatic contour. Borderline hyperdense appearance of the liver, could besecondary to amiodarone.Gallbladder: Cholecystectomy. Tiny calculi (at least 3) are seen in the distal CBD measuring up to 4 mm. CBD measures 11 mm.Spleen: Spleen is normal in size. Small calcified granulomas are seen. Prominent perisplenic varices/splenorenal shunt seen.Pancreas: The pancreas is unrem arkable.Adrenal Glands: The adrenal glands are unremarkable.Abdominal Aorta: Aortoiliac calcifications.Nodes: A few prominent retroperitoneal lymph nodes are noted which are nonspecific.Bowel: Small hiatal hernia. No bowel obstruction or inflammation. Diverticulosis without evidence of diverticulitis.Appendix is borderline in size, however without significant periappendiceal stranding to suggest acute appendicitis.Ascites: No ascites or fluid collections.PELVIS:Pelvis: Urinary bladder is unremarkable. Hysterectomy.Bones: Degenerative changes of the osseous structures. No suspicious lesions. Postope rative changes from L2-L5 related to posterior decompression and instrument fusion. The right L5 transpedicular screw is fractured. Prominent endplate sclerosis at T10-11. L2 compression fracture with 30% body height loss and vertebral augmentation changes.IMPRESSION:1.Cholecystectomy with tiny calculi in the distal CBD compatible with choledocholithiasis.2.Mildly lobulated hepatic contour, prominentperisplenic varices, and possible splenorenal shunt noted, suboptimally evaluated on noncontrast exam. CT with contrast or abdominal ultrasound may be of benefit for further evaluation.3.Right nonobstructive nephrolithiasis.4.Small hiatal hernia. Diverticulosis without diverticulitis.5.Postoperative changes of the lower lumbar spine with a fractured screw at L5.[facility]-[id number] MethodistB natriuretic peptide 2019-08-15 17:59:08 Test Item Value Reference Range Interpretation Comments BNP (test code = 19365-0) 34 pg/mL 0-100 [place] MethodistComprehensive metabolic dzinb1222-47-70 17:52:46 Test Item Value Reference Range Interpretation Comments Sodium (test code = 2951-2) 138 135- 148 mEq/L Potassium (test code = 2823-3) 4.4 3.5- 5.0 mEq/L Chloride (test code = 2075-0) 96 98- 112 mEq/L L CO2 (test code = 2028-9) 24 24- 31 mEq/L Anion gap (test code = 11045-4) 18@ANIO 7- 15 mEq/L H BUN (test code = 3094-0) 20 mg/dL 8-23 Creatinine (test code = 2160-0) 0.99 mg/dL 0.5-0.9 H Glucose (test code = 2345-7) 171 mg/dL 65-99 H Calcium (test code = 75708-2) 10.6 mg/dL 8.8-10.2 H Protein (test code = 2885-2) 8.1 g/dL 6.3-8.3 Albumin (test code = 1751-7) 4.7 g/dL 3.5-5 A/G ratio (test code = 1759-0) 1.4 0.7-3.8 Alkaline phosphatase (test code = 105 U/L 35-104 H 6768-6) AST (test code = 1920-8) 379 U/L 10-35 H ALT (test code = 1742-6) 102 U/L 5-50 H Total bilirubin (test code = 0.6 mg/dL 0.2-1.2 1974-07) Lab Interpretation (test code = Abnormal 22371-0) [place] MethodistLipase aqdkb3988-34-39 17:52:46 Test Item Value Reference Range Interpretation Comments Lipase (test code = 3040-3) 47 U/L 13-60 [place] MethodistXR Chest 1 Vw Skymfpyg7550-08-64 17:40:01 Interface, Radiology Results 08/15/2019 5:43 PM CSTEXAMINATION: XR CHEST 1 VW PORTABLECLINICAL HISTORY: chest painCOMPARISON: Most Recent Prior at HIMPRESSION:Mild elevation right hemidiaphragm. Heart enlarged. The pulmonary vascular is normal. No focal infiltrates or effusions. Metallic pellet overlying the lower thoracic spine on the left. [facility]-[id number] MethodistEC ED Preliminary Interpretation - Not an Kiebg9639-01-47 17:15:54Apollo Cooper III, MD 08/16/2019 7:44 [facility] Preliminary Interpretation - Not an OrderPerformed by: Apollo Cooper III, MDAuthorized by: Apollo Cooper III, MD ECG reviewed by ED Physician in the absence of a skiff operator: yes Interpretation: Interpretation: normal Rate: ECG rate: 69 ECG rate assessment: normal Rhythm: Rhythm: sinus rhythm Ectopy: Ectopy: none QRS: QRS axis: Normal QRS intervals: NormalConduction: Conduction: normal ST segments: ST segments: NormalT waves: T waves: [place] [facility]iness GPOCHQETUG4053-47-82 10:20:3523.4[facility] SjeyvmnFQQQTUTXHL9849-25-67 10:20:35 2.0Memorial OgqwdphRTVMGNSRYH1349-90-82 10:20:3557.6[facility] HermannHEMATOLOGY 2014-01-14 10:20:3516.3[facility]orial XdnvolcVCVLDHHESX4875-93-42 10:20:35Normal (01/14/14 5:20 AM)[facility] KhjvaujUEFHVGPPNF1332-82-41 10:20:350.7Memorial RcnzyyaOPHJWETNEG2673-09-73 10:20:35Slight *ABN*(01/14/14 5:20 AM)[facility] MlqebwmYYMZEMWQPR3827-95-38 10:20:350.1[facility]orial DmkmhpxYGUMDRVUZF1092-61-78 10:20:353.5[facility]orial VgcztvzFEXZRFNGIJ7513-79-95 10:20:351.4[facility] [place] ZSPRMETOGQ5757-43-08 10:20:351.0[facility] FqcqzfvHMJVSNJKYX0138-66-74 10:20:35 11.5[facility]orial RpkcgpyXRDNCSRWCK4960-90-14 10:20:3533.5[facility] HermannHEMATOLOGY 2014-01-14 10:20:35 Test Item Value Reference Range Interpretation Comments MCH (test code = MCH) 30.4 pg 27.0-31.0 Memorial CxuayddDPWXOFQUBE0971-06-25 10:20:3590.7[facility] HermannHEMATOLOGY 2014-01-14 10:20:3534.3[facility]orial YigrbwnQLKDLREKJY7358-96-18 10:20:3513.9[facility]orial ZkenoftFCOABSCKRV1611-53-45 10:20:64293Dbddxcjo HcahiosBDAPPKCPFW8455-91-37 10:20:3510.6[facility]orial NzvympnAHYSJMXSIQ2618-38-18 10:20:356.1[facility] MXDLEHKTBV6313-96-55 10:20:353.78[facility] HermannCHEM JXBVJ7714-66-54 01:05:33 2.7[facility] HermannCHEM GHSVT4839-74-21 01:05:331.3[facility] HermannCHEM PANEL 2014-01-14 01:05:3319Mem[facility] HermannCHEM CVHRA1953-28-64 01:05:3311.6[facility] HermannCHEM IZUIH1726-71-10 01:05:330.5[facility] HermannCHEM EWAZY9250-31-84 01:05:336.2[facility] HermannCHEM YBPER5615-52-44 01:05:333.5[facility] HermannCHEM QWIFY8294-06-48 01:05:3373[facility] HermannCHEM JHYKY1217-00-89 01:05:3342 [facility] HermannCHEM TBQRQ8366-65-86 01:05:3356[facility] HermannCHEM PANEL 2014-01-14 01:05:3378[facility] HermannCHEM OGXZD7928-52-64 01:05:74776Ioivzefn HermannCHEM SUYEX5023-86-30 01:05:334.6[facility] HermannCHEM KIROQ6787-75-22 01:05:3315[facility] HermannCHEM YUFGO2755-25-00 01:05:330.8[facility] HermannCHEM RPTTI6386-76-35 01:05:34710Izqqstar HermannCHEM XTNMR5211-73-29 01:05:83139 [facility] HermannCHEM JLNWB0949-73-83 01:05:3328[facility] HermannCHEM PANEL 2014-01-14 01:05:338.6[facility] FejcknuNAUDSNDPPQ2799-80-43 01:05:33 Test Item Value Reference Range Interpretation Comments Split Point (test code = Split Point) 0.[address] [facility] HospitalCpjvsnmCKTNKVZYJU6863-50-72 01:05:33 Test Item Value Reference Range Interpretation Comments Angle (test code = Angle) 77 degrees 64-80 [facility] LybvdosKPQMOIJVYJ7607-62-80 01:05:33 Test Item Value Reference Range Interpretation Comments K-time (test code = K-time) 1.1 min 0.6-2.3 [facility] PtjgvwuLAUZXXIBQT7334-53-62 01:05:33 Test Item Value Reference Range Interpretation Comments R-time (test code = R-time) 0.7 min 0.4-0.7 [facility] AqnhintBRFQVFTYXI7329-98-17 01:05:33 Test Item Value Reference Range Interpretation Comments ACT (TEG) (test code = ACT (TEG)) 113 s 86-118 [facility] EczthbwPXSBDAWTEQ6657-81-39 01:05:3311.4[facility] HermannHEMATOLOGY 2014-01-14 01:05:33 Test Item Value Reference Range Interpretation Comments Max Amp (test code = Max Amp) 70 mm 52-71 [facility] QugudwoRKUXZTEGTH1730-63-09 01:05:331.7[facility] HermannCHEM PANEL 2014-01-14 01:05:241.5Memorial VfwnyyxDCSHAPJZNO9163-39-85 01:05:91104Hwknrdjp AagalxmVWHXKTYYHA5335-75-58 01:05:2410.2Memorial WsksrygXBCLXWMLKK7684-93-90 01:05:2413.3[facility]orial SkbakpvHOHJSGLFMQ2477-72-79 01:05:2434.5[facility] CONUACXBIV9960-96-94 01:05:2489.2[facility] NvyzeivSFWXAAGKAM7576-41-76 01:05:24 Test Item Value Reference Range Interpretation Comments MCH (test code = MCH) 30.7 pg 27.0-31.0 [facility] IcbuxxwTJTHJDLCGY7452-74-86 01:05:249.4[facility] HermannHEMATOLOGY 2014-01-14 01:05:2434.2[facility] XxrdwlrBGJYHRYDLV1500-11-29 01:05:2411.8Memorial TqigexxBLOIKJDVHV9309-19-92 01:05:243.84Memorial JyiuumvYSJMQYORET6561-97-65 01:05:241+ *ABN*(01/13/14 8:05 PM)[facility] TlkfpbfROLXIZHVEW6632-22-19 01:05:24 7.5[facility]orial XgzmrwiHGUPJOWUJX0165-49-89 01:05:24Normal (01/13/14 8:05 PM)[facility] BrhwnylYVUIASKJVG8420-17-16 01:05:2480.3[facility] SxtsahzUOWSOLDYMP1736-64-31 01:05:2412.5[facility] UinehjeTBUADEDQXR5987-21-69 01:05:240.2[facility] [place] RSGGPYCYCA0600-43-57 01:05:242.2[facility] DblobycGNSFQDUVBG9553-73-29 01:05:244.8 Memorial SbskhglWVGRORKMMY1047-27-60 01:05:241.2[facility] HermannHEMATOLOGY 2014-01-14 01:05:240.5[facility] TxbmxhtSZKGWQMEBL4169-31-45 01:05:240.0[facility]orial AojiqmoQBDXGSBQXT8025-93-74 01:05:240.2[facility]
[2020-01-18 02:51] VITALS: BP 130/68; TEMP 97.9; O2SAT 100
--- NOTE | 2020-01-18 12:35 | EKG ---
Test Date: 2020-01-17 Test Time: 09:01:01 [facility] Location Manager: KELLY MEASUREMENT RESULTS: Intervals: Rate: 82 SD: 130 QRSD: 78 QT: 418 QTc: 488 [place]: P: 69 SD: 130 QRS: 26 T: 57 INTERPRETIVE STATEMENTS: Normal sinus rhythm Normal ECG Compared to ECG 01/13/2014 11:27:43 No significant changes Electronically Signed On 01-18-20 12:31:49 CDT by Ishan Nunez
== END 2020-01-17 13:15 | disposition short-term general hospital (02) ==
LOC: ER 08:21
PROC: 30233N1 Transfusion of Nonautologous Red Blood Cells into Peripheral Vein, Percutaneous Approach (ICD-10-PCS; principal; 2020-01-17)
DX: D64.9 Anemia, unspecified (principal); I95.9 Hypotension, unspecified; R55 Syncope and collapse; Z98.890 Other specified postprocedural states; E11.9 Type 2 diabetes mellitus without complications; I48.91 Unspecified atrial fibrillation; Z88.0 Allergy status to penicillin; Z88.8 Allergy status to other drugs, medicaments and biological substances; Z91.048 Other nonmedicinal substance allergy status
CPT/HCPCS: 93005; 85025; 80048; 36415; 86900; 86850; 86901; 80076; 83690; 74176; 73030; 36430; P9016 ×2; J7050; J7040; J7030; J2405; 96361; 96374; 99285

== ENCOUNTER 2023-01-06 19:03 | Emergency (ER) | payer OTHER ==
--- OUTSIDE RECORDS SUMMARY | 2023-01-06 19:10 | XMS REPORT | Continuity of Care Document ---
:1950 Author Organization [facility] t Address [address] [place] [address] [address]. [address] [place] [address] Care Team Providers Name Role Phone JOHN HOLLOWAY Primary Care Physician Unavailable Pee Howard Attending Clinician Cherri Ward MD Attending Clinician CHERRI WARD Attending Clinician Unavailable Doctor Unassigned, [place] Attending Clinician Unavailable NO SHANKS Attending Clinician Unavailable Daecon Garner DO Attending Clinician Nurse, [facility] Pob I Attending Clinician Unavailable MONICA SAUCEDO Attending Clinician Unavailable Lab, [facility] Pob I Attending Clinician Unavailable Lewis WIRE BRUSHER, Monica Attending Clinician Ender Morales Attending Clinician Elizabeth Mares Attending Clinician RAÚL MORTON Attending Clinician Unavailable WESTON AGUERO Attending Clinician Unavailable Ayah Bravo Attending Clinician Unavailable Weston Aguero MD Attending Clinician CAMMIE HAMMOND Attending Clinician Unavailable Cammie Hammond MD Attending Clinician MAIKOL ANDINO Attending Clinician Unavailable Harmony THIBODEAUX, Lubna Amador Attending Clinician Unavailable Ronald Valiente MD Attending Clinician Leticia Laughlin CRNA Attending Clinician [phone] Lyle Browne CRNA Attending Clinician Eren WIRE BRUSHER, Kaylene Saeed Attending Clinician EDWIN GIVENS Attending Clinician Unavailable Larisa Lomeli Attending Clinician Pako Hodge Attending Clinician Veronika Dumont Attending Clinician Pee Howard Admitting Clinician Hipolito Barragan Admitting Clinician [phone] LEILANI LAST Admitting Clinician Unavailable Ronald Valiente MD Admitting Clinician DEACON DHILLON Admitting Clinician Unavailable Veronika Dumont Admitting Clinician Payers Payer Name Policy Type Policy Number Effective Date Expiration Date S ource Problems Condition Condition Condition Status Onset Resolution Last Treating Co mments Source Name Details Category Date Date Treatment Clinician Date Rectal Rectal Disease Active Methodi prolapse prolapse 07-12 st 00:00: Hospita 00 l GIB SP GIB SP Diagnosis Active 2020-01-18 Me moria COLONOSCOP COLONOSCOP 01-16 14:10:00 l Y Y Active 00:00: [place] 01/17/2020 00 [facility] Pseudochol Pseudochol Disease Active 2020- U nivers inesterase inesterase 4-13 it y of deficiency deficiency [place] [facility] Upper Upper Disease Active Methodi abdominal abdominal 2-17 st pain pain 00:00: Hospita 00 l Choledocho Choledocho Disease Active M ethodi lithiasis lithiasis 2-17 st 00:00: Hospita 00 l NSTEMI NSTEMI Disease Active 2019- Univers (non-ST (non-ST 1-26 ity of elevated elevated 00:00: [place] myocardial myocardial 00 Me dical infarction infarction Br anch ) ) Coronary Coronary Disease Active Unive rs artery artery 1-26 ity of calcificat calcificat [place] [facility] Cholecysti Cholecysti Disease Active U nivers tis tis 1-25 ity of 00:00: [place] [facility] PAF PAF Disease Active Univers (paroxysma (paroxysma 1-25 it y of l atrial l atrial 00:00: [place] fibrillati fibrillati 00 Me dical on) on) Branch RBBB RBBB Disease Active Univers 1-25 ity of 00:00: [place] [facility] Chronic Chronic Disease Active Univers diastolic diastolic 1-25 ity of congestive congestive 00:[place] heart 00 Medical failure failure Branch Calculus Calculus Disease Active Overview: Un christiana of of 1-17 Formattin ity of gallbladde gallbladde 00:00: g of this [place] r without r without 00 note Medi dinorah cholecysti cholecysti might be Branch tis tis different without without from the obstructio obstructio original. n n Added automatic ally from request for surgery [id number] Choledocho Choledocho Disease Active 2020- U nivers lithiasis lithiasis 1-10 ity of 00:00: [place] [facility] Type 2 Type 2 Disease Active 2020- Univers diabetes diabetes 1-10 ity of mellitus mellitus 00:00: [place] [facility] Paroxysmal Paroxysmal Disease Active 2018-06 U nivers atrial atrial 1-05 ity of fibrillati fibrillati [place] with 00 Medical RVR RVR Branch YOGESH (acute YOGESH (acute Disease Active 2019- U nivers kidney kidney 1-04 ity of injury) injury) 00:00: [place] 00 [facility] Functional Functional Disease Active 2019- U nivers diarrhea diarrhea 1-04 ity of 00:00: [place] 00 Medical Branch Renal Renal Disease Active 2018-06 Univers failure failure 1-04 ity of 00:00: [place] 00 Medical Branch Acute Acute Disease Active 2018-06 Univers diastolic diastolic 1-04 ity of congestive congestive 00:[place] 00 Medical failure failure Branch Dehydratio Dehydratio Disease Active 2018-06 U nivers n n 1-03 ity of 00:00: [place] 00 Medical Branch UTI UTI Disease Active 2018-06 Univers (urinary (urinary 0-25 ity of tract tract 00:00: [place] infection) infection) 00 Oh dical Branch Pericardia Pericardia Disease Active 2018-06 U nivers l effusion l effusion 0-25 it y of 00:00: [place] 00 Medical Branch Other Other Disease Active 2018-06 Univers chest pain chest pain 0-25 it y of 00:00: [place] 00 Medical Branch Pericardit Pericardit Disease Active 2018-06 U nivers is is 0-25 ity of 00:00: [place] 00 Medical Branch Atrial Atrial Disease Active 2018-06 Univers fibrillati fibrillati 0-24 it y of on with on with 00:00: [place] RVR RVR 00 Medical Branch A-fib A-fib Disease Active 2018-06 Univers 0-05 ity of 00:00: [place] 00 Medical Branch History of History Problem Active 2022-06-19 Memoria - atrial of - 06-29 08:02:36 l fibrillati atrial 00:00: Duc palacios on fibrillati 00 (context-d on ependent (context-d category) ependent category) Active 06/29/2018 Problem 06/19/2022 HAD ABLATION [facility] SACROILIIT SACROILII Diagnosis Active 2017-12-23 Memoria IS TIS - 09:23:00 l Active 00:00: Herman 12/18/2017 00 [facility] [place] [facility] Low back Low back Problem Active 2020-03-16 Memoria pain pain 9- 21:13:39 l (disorder) (disorder) 00:00: He rmann Active 00 03/01/2014 Problem 03/16/2020 [facility] 02/20/15. Ramona Neuro,[facility] Pain of Pain of Problem Active 2020-03-16 Me moria truncal truncal 03-01 21:13:39 l structure structure 00:00: Herm roshan (finding) (finding) 00 Active 03/01/2014 Problem 03/16/2020 [facility] 02/20/15. Ramona Neuro,[facility] RIB FXS, RIB FXS, Diagnosis Active 2014-01-20 Memoria TP FXS TP FXS 01-13 21:59:00 l Active 00:00: Herman 01/13/2014 00 [facility] 15 FOOT 15 FOOT Diagnosis Active 2014-01-13 Memoria FALL FALL 01-13 17:38:00 l Active 00:00: [place] 01/13/2014 00 [facility] Kidney Kidney Problem Resolve 2020-03-16 Mem oria stone stone d 21:13:39 l (disorder) (disorder) He rmann Resolved Problem 03/16/2020 [facility], OPID Herman Diabetes Diabetes Problem Active 2022-06-19 Memoria mellitus mellitus 08:02:36 l (disorder) (disorder) He rmann Active Problem 06/19/2022 [facility] Neuro,ALFI ,[facility], OPID Herman,Te [place] Use for CCDA Provenance Diverticul Diverticu Problem Active 2022-06-19 Memoria osis of losis of 08:02:36 l colon colon Herman Active Problem 06/19/2022 [facility] Use for CCDA Provenance Dysphagia Dysphagia Problem Active 2022-06-19 Memoria (disorder) (disorder) 08:02:36 l Active Herman Problem 06/19/2022 [facility] Bilateral Bilateral Problem Active 2022-06-19 Memoria lower limb lower limb 08:02:36 l edema edema [place] Active Problem 06/19/2022 [facility] Use for CCDA Provenance Steatosis Steatosis Problem Active 2022-06-19 Memoria of liver of liver 08:02:36 l (disorder) (disorder) He rmann Active Problem 06/19/2022 [facility] Use for CCDA Provenance Gastroesop Gastroeso Problem Active 2022-06-19 Memoria hageal phageal 08:02:36 l reflux reflux Herman disease disease without without esophagiti esophagiti s s (disorder) (disorder) Active Problem 06/19/2022 [facility] Gastroesop Gastroeso Problem Active 2022-06-19 Memoria hageal phageal 08:02:36 l reflux reflux [place] disease disease (disorder) (disorder) Active Problem 06/19/2022 [facility] History of History Problem Active 2022-06-19 Memoria diverticul of 08:02:36 l itis diverticul Duc n (situation itis ) (situation ) Active Problem 06/19/2022 [facility] Use for [facility]A Provenance History of History Problem Active 2022-06-19 Memoria polyp of of polyp 08:02:36 l colon of colon [place]din (situation (situation ) ) Active Problem 06/19/2022 [facility] Use for [facility]A Provenance Hypothyroi Hypothyro Problem Active 2022-06-19 Memoria dism idism 08:02:36 l (disorder) (disorder) He rmann [facility], BRANDON [place] Use for CCDA Provenance Sleep Sleep Problem Active 2022-06-19 Memor ia apnea apnea 08:02:36 l (finding) (finding) Herm roshan Active Problem 06/19/2022 [facility] Use for [facility]A Provenance Arthritis Arthritis Problem Active 2020-03-16 Memoria (disorder) (disorder) 21:13:39 l Active [place] Problem 03/16/2020 [facility] Neuro,[facility], OPID Herman Carpal Carpal Problem Active 2020-03-16 Baltazar jan tunnel tunnel 21:13:39 l syndrome syndrome Duc n (disorder) (disorder) Active Problem 03/16/2020 [facility] Neuro Diverticul Diverticu Problem Active 2020-03-16 Memoria itis litis 21:13:39 l (disorder) (disorder) He rmann Active Problem 03/16/2020 [facility] Neuro,[facility] Hearing Hearing Problem Active 2020-03-16 Me moria loss loss 21:13:39 l (finding) (finding) Caryl roshan Active Problem 03/16/2020 [facility] Hyperchole Hyperchol Problem Active 2020-03-16 Memoria sterolemia esterolemi 21:13:39 l (disorder) a Duc n (disorder) Active Problem 03/16/2020 [facility], OPID Herman Neuropathy Neuropath Problem Active 2020-03-16 Memoria (disorder) y 21:13:39 l (disorder) Duc n Active Problem 03/16/2020 [facility], OPID Herman FX FX Diagnosis Active 2014-01-20 Mem oria EIGHT/MORE EIGHT/MORE 21:59:00 l RIB-CLOSED RIB-CLOSED He rmann Active [facility] Atrial Atrial Problem Resolve 2018-062022-06-19 2022-06-19 Memoria fibrillati fibrillati d 06-29 08:02:36 08:02:36 l on on 00:00: Herman (disorder) (disorder) 00 Resolved 04/29/2019 Problem 06/19/2022 HAD CARDIAC ABLATION [facility] Use for CCDA Provenance History of Past Illness Condition Condition Condition Status Onset Resolution Last Treating Co mments Source Name Details Category Date Date Treatment Clinician Date Gastro-eso Gastro-es Problem 2021-062022-06-19 2022-06-19 Memoria phageal ophageal - 08:02:36 08:02:36 l reflux reflux 18:00: Herman disease disease 00 without without esophagiti esophagiti s s 06/18/2022 06/19/2022 [facility] Personal Personal Problem 2019-2020-01-13 2020-01-13 Memoria history of history of 7-15 04:01:44 04:01:44 l colonic colonic 17:00: Herman polyps polyps 00 01/11/2020 01/13/2020 [facility] Allergies, Adverse Reactions, Alerts Allergy Allergy Status Severity Reaction(s) Onset Inactive Treating Comm ents Source Name Type Date Date Clinician Penicill DA Active MO 2019-06 [facility] ins 07-20 Clear 00:00: Akhtar 00 [facility] iodine DA Active MO 2019-06 [facility] 1-22 Clear 00:00: Akhtar [facility] succinyl DA Active SV 2019-06 [facility] choline -22 Clear 00:00: Akhtar [facility] Penicill DA Active MO THROAT 2019-06 [facility] ins ITCHES -22 Clear 00:00: Akhtar 00 [facility] iodine DA Active MO THROAT 2019-06 [facility] ITCHES -22 Clear 00:00: Akhtar [facility] succinyl DA Active SV FLAT LINE 2019-06 [facility] choline -22 Clear 00:00: Akhtar [facility] Iodinate Propensi Active Other (See na Me thodi d ty to Comments) 08-15 Contrast adverse 00:00: Hospita Media reaction 00 l s to drug Penicill Propensi Active Other (See na Me thodi ins ty to Comments) 08-15 adverse 00:00: Hospita reaction 00 l s to drug Succinyl Propensi Active Other (See na Me thodi choline ty to Comments) 08-15 adverse 00:00: Hospita reaction 00 l s to drug Succinyl Drug Active Other - See Pseudocho Univers choline Allergy comments 1-24 linestera ity of 00:00: se [place] deficinec [facility] [place] docholine sterase deficinec yFlat Lines. SUCCINYL DRUG Active High Other-Cmnt Univ ers CHOLINE INGREDI 1-24 ity of 00:00: Medical Branch Iodine Propensi Active Rash Univers ty to 6-14 ity of adverse 00:00: [place] reaction 00 Medical s Branch Penicill Propensi Active Hives Univer s ins ty to 6-14 ity of adverse 00:00: [place] reaction 00 Medical s Branch IODINE DRUG Active Rash Univers INGREDI 6-14 ity of 00:00: [place] [facility] PENICILL Drug Active Hives Univers INS Class 6-14 ity of 00:00: [place] [facility] penicill penicill Active Memori a ins<sup> ins<sup> 9-03 l 1</sup> 1</sup> 05:00: [place] 00 penicill penicill Active Memori a in in l [place] succinyl succinyl Active Memori a choline choline l [place] iodinate iodinate Active Memori a d d l radiocon radiocon Duc n trast trast dyes dyes iodine iodine Active Memoria l Herman penicill penicill Active Memori a ins ins l [place] Family History Family Member Diagnosis Comments Start Date Stop Date Source Natural mother Stroke [facility] [place] [facility] Natural mother Diabetes [facility] [place] [facility] Natural mother Heart disease [facility] Natural mother Hypertension [facility] Natural brother Pancreatic cancer [facility] Natural father Melanoma [facility] [place] [facility] Social History Social Habit Start Date Stop Date Quantity Comments Source Exposure to Not sure University of SARS-CoV-2 (event) [place] [facility] History [facility] University o f Alcohol Comment [place] [facility] History [facility] University o f Alcohol Std Drinks [place] [facility] History [facility] University o f Alcohol Binge [place] [facility] [place] Gender identity [facility] [place] [facility] Sexual [facility] Alcohol intake 2020-09-20 2020-09-20 Ex-drinker [facility] 00:00:00 00:00:00 (finding) Hospital History of Social 2020-09-20 2020-09-[address] function 00:00:00 00:00:00 Hospital History [facility] Food 2019-05-24 2019-05-24 1 Univers ity of Scarcity 00:00:00 00:00:00 [facility] History [facility] Food 2019-05-24 2019-05-24 1 Univers ity of Worry 00:00:00 00:00:00 [facility] History [facility] 2019-04-21 2019-04-21 1 University o f Alcohol Frequency 00:00:00 00:00:00 [facility] Tobacco use and 2019-04-02 2019-04-02 Never used Universit y of exposure 00:00:00 00:00:00 [facility] Social History 2017-12-18 2017-12-[address] [facility] ermann 18:16:53 18:16:53 Sex [birth year] [facility] 00:00:00 00:00:00 Hospital Smoking Status Start Date Stop Date Source Social [facility] Medications Ordered Filled Start Stop Current Ordering Indication Dosage Frequency Signature Comments Components Source Medication Medication Date Date Medication? Clinician (SIG) Name Name propofol 2021-06 No 100 mg = Memor ia 2-21 10 mL, l 13:58: Emulsion, Herman 00 IV, Once, first dose 06/18/22 7:58:00 [employer] RENTAL CLERK, stop date 06/18/22 7:58:00 [employer]INE RENTAL CLERK lidocaine 2021-06 No 100 mg = 5 Me moria 2-21 mL, l 13:53: Injection, Herman IV, Once, first dose 06/18/22 7:53:00 [employer]OUSINE RENTAL CLERK, stop date 06/18/22 7:53:00 [employer]OUSINE RENTAL CLERK propofol 2021-06 No 100 mg = Memor ia 2-21 10 mL, l 13:53: Emulsion, Mauldin 00 IV, Once, first dose 06/18/22 7:53:00 LIMOUSINE RENTAL CLERK, stop date 06/18/22 7:53:00 [employer]OUSINE RENTAL CLERK Misc 2021-06 No 200 mL, Memoria Medication 2-21 Soln-IV, l 13:49: IV, Once, first dose 06/18/22 7:49:00 LIMOUSINE RENTAL CLERK, stop date 06/18/22 7:49:00 LIMOUSINE RENTAL CLERK LR 1,000 mL 2021-06 No 1,000 mL, M emoria 2- IV, 30 l 13:42: mL/hr, Herman 00 start date 06/18/22 7:42:00 LIMOUSINE RENTAL CLERK, 1.88, m2 Lidocaine 2021-06 No 0.2 mL, Memor ia 2% 0.2 mL 2- Injection, l IV Start 13:12: Subcutaneo [facility] 00 us, Once PRN for other (see comment), first dose 06/18/22 7:12:00 LIMOUSINE RENTAL CLERK meloxicam 2021-06 Yes 15 mg = 1 Mem oria 15 mg oral 2-19 tabs, l tablet 14:30: Oral, Mauldin 00 Daily, ARTHRITIS PAIN NexIUM 20 2021-06 Yes 20 mg = 1 Mem oria mg oral 2-19 caps, l delayed 14:29: Oral, Herman release 00 Daily, capsule GERD losartan 2021-06 Yes 100 mg = 1 Mem oria 100 mg oral 2-19 tabs, l tablet 14:28: Oral, [place] 00 Daily, HTN aspirin 81 2021-06 Yes 81 mg = 1 Me moria mg oral 2-19 tabs, l tablet, 14:28: Oral, [place] chewable 00 Daily, [facility]rost [facility] 3-22 each eye. ity o f 0.01 % 15:35: [place] ophthalmic Medical drops Branch aspirin 81 Yes Take by Univ ers mg Cap 09-17 mouth. ity of 15:35: [place] [address] Medical Branch dapaglifloz Yes 10mg Take 10 mg Univers in 09-17 by mouth ity of (FARXIGA) 15:35: daily. [place] 10 mg Medical tablet Branch ZINC ORAL Yes Take by Unive rs 09-17 mouth. ity of 15:35: [place] [address] Medical Branch ascorbic Yes Take by Univer s acid 09-17 mouth. ity of (VITAMIN C 15:35: [place] ORAL) Medical Branch calcium Yes Take by Univers carbonate 09-17 mouth. ity of (CALCIUM 15:35: [place] 300 ORAL) Medical Branch cyanocobala Yes Take by Uni vers min, 09-17 mouth. ity of vitamin 15:35: [place] B-12, Medical (VITAMIN Branch B-12 ORAL) ferrous Yes Take by Univers sulfate 09-17 mouth. ity of (IRON ORAL) 15:35: [place] [address] Medical Branch Cholecalcif Yes Take by Uni vers yobani, 09-17 mouth. ity of Vitamin D3, 15:35: [place] (VITAMIN [address] [place] [address] D3) 10 mcg [place] (400 unit) capsule omega Yes Take by [facility] 3-dha-epa-f 09-17 mouth. ity of lizzette oil 15:35: [place] (FISH OIL) [address] [place] [address] 100-160-1,0 Branch 00 mg Cap PNV Yes Take by Univers no.95/saritha 09-17 mouth. ity of us 15:35: [place] fum/folic Medical ac Branch ( ORAL) POTASSIUM Yes Take by Unive rs ORAL - mouth. ity of 15:35: [place] [address] Medical Branch IBUPROFEN Yes Take by Unive rs ORAL - mouth. ity of 15:35: [place] [address] Medical Branch glimepiride Yes Take by Uni vers (AMARYL - mouth. ity of ORAL) 15:30: [place] [address] Medical Branch metFORMIN Yes 1000mg Take 1,000 Univers 1,000 mg 24 3-22 mg by ity of hr tablet 15:30: mouth [place] 17 every Medical evening. Branch sitagliptin Yes Januvia Uni vers phosphate 3-22 ity of (JANUVIA 15:30: [place] ORAL) 17 Medical Branch atorvastati Yes 10mg Take 10 mg Univers n 10 mg 3-22 by mouth ity of tablet 15:28: at [place] 50 bedtime. Medical Branch estradioL Yes [id number] 1g Insert 1 g Univers 0.01 % (0.1 3-22 into ity of mg/gram) 00:00: vagina [place] vaginal 00 daily. Medical cream Insert Branch daily, at night for 2 weeks and then 2-3 times a week meloxicam Yes 15mg Take 15 mg Un christiana 15 mg 1-08 by mouth ity of tablet 00:00: daily. [place] 00 Medical Branch meloxicam Yes 15mg QD Take 15 mg Me thodi (MOBIC) 15 2-[address] mg tablet 14:55: daily. Hospit a 56 l bimatoprost Yes 1[drp] QD 1 drop Me thodi (LUMIGAN) 2-[address] 0.01 % 14:55: Hospita ophthalmic 55 l drops metFORMIN Yes 1000mg Q.5D Take 1,000 Methodi (GLUCOPHAGE 2-[address] ) 1,000 mg 14:53: mouth 2 Hosp skye tablet 59 (two) l times a day with meals. glimepiride Yes 2mg Q.5D Take 2 mg M ethodi (AMARYL) 2 2-[address] MG tablet 14:53: (two) Hospita 59 times a l day. magnesium Yes 2{tbl} Q.5D Take 2 Meth margarita chloride 2-[address] (SLOW-MAG) 14:53: mouth 2 Hosp skye 71.5 mg 59 (two) l tablet,campbell times a yed release day. (DR/EC) atorvastati Yes 10mg QD Take 10 mg Methodi n (LIPITOR) 2-[address] 10 MG 14:51: daily. Hospita tablet 34 l levothyroxi Yes 75ug QD Take 75 Met hodi ne 2-[address] (SYNTHROID) 14:51: mouth Hospi ta 75 mcg 34 daily. l tablet Diclofenac 2019-0 Yes 4 gm = 1 Mem oria Sodium 0.01 7-23 appl, TOP, l MG/MG 15:29: QID, PRN [place] Topical Gel 00 for pain, # 100 gm, 0 Refill(s), Pharmacy: [id number], 165.1, cm, 01/17/20 14:55:00 CDT, Height, 79, kg, 01/17/20 14:55:00 CDT, Weight lidocaine 2020-0 No 1 appl, Memor ia 4% topical 7-23 TOP, TID, l cream 15:29: # 15 gm, 0 Duc n 00 Refill(s), Pharmacy: [facility], 165.1, cm, 01/17/20 14:55:00 CDT, Height, 79, kg, 01/17/20 14:55:00 CDT, Weight atorvastati 2019-0 Yes 10 mg = 1 M emoria n 10 mg 7-23 tab, PO, l oral tablet 15:20: Bedtime, 0 Herman 00 Refill(s) levothyroxi 2020-0 Yes 75 Memori a ne 75 mcg 7-23 microgram l (0.075 mg) 15:20: = 1 tab, Her mccall oral tablet 00 PO, Q630AM, 0 Refill(s) ferrous 2019-0 No Notes: Memoria sulfate 7-23 Give with l 14:00: food. "Do [place] 00 Not Crush" Potassium 2020-0 No Notes: Memori a Chloride 7-23 (Same as: l 13:00: K-Dur 20) Herman 00 "Do Not Crush" Give with food and full glass of water For patients unable to swallow tablet, dissolve in one half glass of water. Allow about 2 minutes for the tablets to disintegra te. Stir before giving to prepare slurry and administer . Please exclude Patient s with feeding tube less than 14 Chinese (Dobhoff, J-tube etc) and pediatric and patients. Potassium 2020-0 No Notes: Memori a Chloride 7-23 (Same as: l 12:33: K-Dur 20) Herman 00 "Do Not Crush" Give with food and full glass of water For patients unable to swallow tablet, dissolve in one half glass of water. Allow about 2 minutes for the tablets to disintegra te. Stir before giving to prepare slurry and administer . Please exclude Patient s with feeding tube less than 14 Chinese (Dobhoff, J-tube etc) and pediatric and patients. Dextrose 2020-0 No 12.5 gm, Memor ia 50% Syringe 01-17 25 mL, l (D50W) 22:36: Route: IVP, Drug Form: INJ, Dosing Weight 79, kg, PRN, PRN Blood Glucose Results, Start date: 01/18/20 17:36:00 CDT, Duration: 30 day, Stop date: 02/17/20 17:35:00 CDT, 0 Glucagon No 1 mg, Memoria 01-17 Route: IM, l 22:36: Drug form: Heramn 00 PDR/INJ, PRN, Dosing Weight 79, kg, PRN Blood Glucose Results, Start date: 01/18/20 17:36:00 CDT, Duration: 30 day, Stop date: 02/17/20 17:35:00 CDT, 0 Insulin 2019-0 No Notes: Memoria Lispro 01-17 (Same as: l 22:36: Humalog) Roll in palms of hands gently; Do not shake vigorously . WASTE: F/P - Black; E - Municipal Trash Bin Stable for 28 days at room temperatur e. Expires in days from ____Date lidocaine No Route: IV, Me moria (ANES) 01-17 Drug form: l 16:32: INJ, ONCE, Stop date: 01/18/20 11:32:00 CDT phenylephri 0 No Route: IV, Memoria ne (ANES) 01-17 Drug form: l 16:27: INJ, ONCE, Stop date: 01/18/20 11:27:00 CDT Calcium 2019-0 No 1,000 mL, Memor ia Chloride 01-17 Rate: 125 l 0.0014 15:57: ml/hr, MEQ/ML / 00 Infuse Potassium over: 8 Chloride hr, Route: 0.004 IV, Dosing MEQ/ML / Weight 79 Sodium kg, Total Chloride Volume: 0.103 1,000, MEQ/ML / Start Sodium date: Lactate 01/18/20 0.028 10:57:00 MEQ/ML CDT, Injectable Duration: Solution 30 day, Stop date: 02/17/20 10:56:00 CDT, 1.92, m2, 0 Acetaminoph No Notes: Max Memoria en 01-17 acetaminop l 15:57: hen 4000 Herman 00 mg/day (4 gm/day). (Same as: Tylenol Extra Strength) Fentanyl No Notes: Memoria - (Same as: l 15:57: Sublimaze) Preservati ve free. Flumazenil No Notes: Memor ia 01-17 (Same as: l 15:57: Romazicon) Naloxone No Notes: Memoria - Same as l 15:57: Narcan Ondansetron No Notes: Baltazar jan 01-17 (Same as: l 15:57: Zofran) MEDICATION WASTE Product Size: 4 mg Product Wasted: ___ mg Insulin No Notes: Memoria Lispro 01-17 (Same as: l 15:57: Humalog) Roll in palms of hands gently; Do not shake vigorously . WASTE: F/P - Black; E - Municipal Trash Bin Stable for 28 days at room temperatur e. Expires in days from ____Date propofol No Route: IV, Mem oria (ANES) 10 01-17 Drug form: l mg 15:53: INJ, Start Herman 00 date: 01/18/20 10:53:00 CDT, Stop date: 01/18/20 11:53:00 CDT Sodium No Route: IV, Memor ia Chloride 01-17 Total l 0.9% IV 15:40: Volume: Herman (ANES) 500 00 500, Start mL date: 01/18/20 10:40:00 CDT, Stop date: 01/18/20 11:40:00 CDT Saline No Notes: Memoria Flush 0.9% 7-22 (Same as: l 14:00: BD Posiflush) Thyroxine No Notes: Memori a 7-22 Take 1 l 11:30: hour before or 2 hours after meal; Enteral feeds may interefere with the absorption of this medication . (Same as:Synthro id, Levothroid ) Saline No Notes: Memoria Flush 0.9% 7-22 (Same as: l 02:18: BD Posiflush) atorvastati No Notes: Baltazar jan n 7-22 (Same As: l 02:00: Lipitor) D-50-W No 12.5 gm, Memoria 7-21 25 mL, l 23:43: Route: IVP, Drug Form: INJ, Dosing Weight 79, kg, PRN, PRN Blood Glucose Results, Start date: 01/17/20 18:43:00 CDT, Duration: 30 day, Stop date: 02/16/20 18:42:00 CDT, 0 Glucagon No 1 mg, Memoria 7-21 Route: IM, l 23:43: Drug form: PDR/INJ, PRN, Dosing Weight 79, kg, PRN Blood Glucose Results, Start date: 01/17/20 18:43:00 CDT, Duration: 30 day, Stop date: 02/16/20 18:42:00 CDT, 0 Insulin No Notes: Memoria Lispro -21 (Same as: l 23:43: Humalog) Roll in palms of hands gently; Do not shake vigorously . WASTE: F/P - Black; E - Municipal Trash Bin Stable for 28 days at room temperatur e. Expires in days from ____Date levothyroxi No 75 Memori a ne 75 mcg 7-21 microgram l (0.075 mg) 23:41: = 1 tab, Her mccall oral tablet 00 PO, Daily, # 30 tab, 0 Refill(s) atorvastati No 10 mg = 1 M emoria n 10 mg 7-21 tab, PO, l oral tablet 23:41: Bedtime, # Herman 00 30 tab, 0 Refill(s) Golytely 0 No Notes: Memoria - (Same as: l 22:15: Golytely Herman 00 (Flavored) The final solution contains PEG-3350 17.6 mmol/L, sodium 125 mmol/L, sulfate 40 mmol/L, chloride 35 mmol/L, bicarbonat e 20 mmol/L, and potassium 10 mmol/L Protonix + No Notes: For M emoria Sodium - IV push l Chloride 21:00: reconstitu Her mccall 0.9% IV 50 00 te with 10 mL ml 0.9% sodium chloride and push over 2 minutes. (Same as: Protonix) pantoprazol No Notes: For Memoria e additive 01-16 IV push l 80 mg + 20:33: reconstitu Herm roshan Sodium 00 te with 10 Chloride ml 0.9% 0.9% IV 100 sodium mL chloride and push over 2 minutes. (Same as: Protonix) pantoprazol No 30 mL, Baltazar jan e additive 01-16 Rate: 0.99 l 24 mg [0.01 20:33: ml/hr, Herm roshan mg/kg/hr] + 00 Infuse NS 30 mL over: 30.3 hr, Route: IV, Dosing Weight 79 kg, Total Volume: 30 mL, Start date: 01/17/20 15:33:00 CDT, Duration: 30 day, Stop date: 02/16/20 15:32:00 CDT, 1.92, m2 Dextrose 2019- No 12.5 gm, Memor ia 50% Syringe 01-16 25 mL, l (D50W) 20:28: Route: Herman 00 IVP, Drug Form: INJ, Dosing Weight 79, kg, PRN, PRN Blood Glucose Results, Start date: 01/17/20 15:28:00 CDT, Duration: 30 day, Stop date: 02/16/20 15:27:00 CDT, 0 Glucagon 2019-0 No 1 mg, Memoria 01-16 Route: IM, l 20:28: Drug form: [place] 00 PDR/INJ, PRN, Dosing Weight 79, kg, PRN Blood Glucose Results, Start date: 01/17/20 15:28:00 CDT, Duration: 30 day, Stop date: 02/16/20 15:27:00 CDT, 0 Ondansetron 2020-0 No Notes: Baltazar jan - (Same as: l 20:28: Zofran) MEDICATION WASTE Product Size: 4 mg Product Wasted: ___ mg Acetaminoph 2019-0 No Notes: Do M emoria en 01-16 not exceed l 20:28: 4 gm/day. (Same as: Tylenol) Misc 2020-0 No 600 mL, Memoria Medication 15 Soln-IV, l 14:26: IV, Once, first dose 01/11/20 9:26:00 CDT, stop date 01/11/20 9:26:00 CDT propofol 2019-0 No 50 mg = 5 Baltazar jan 7-15 mL, l 14:08: Emulsion, IV, Once, first dose 01/11/20 9:08:00 CDT, stop date 01/11/20 9:08:00 CDT propofol 2020-0 No 100 mg = Memor ia 7-15 10 mL, l 14:04: Emulsion, IV, Once, first dose 01/11/20 9:04:00 CDT, stop date 01/11/20 9:04:00 CDT propofol 2019-0 No 100 mg = Memor ia 7-15 10 mL, l 14:00: Emulsion, IV, Once, first dose 01/11/20 9:00:00 CDT, stop date 01/11/20 9:00:00 CDT lidocaine 2020-0 No 30 mg = Memor ia 7-15 1.5 mL, l 13:56: Injection, [place] 00 IV, Once, first dose 01/11/20 8:56:00 CDT, stop date 01/11/20 8:56:00 CDT propofol 2020-0 No 100 mg = Memor ia 7-15 10 mL, l 13:56: Emulsion, Herman 00 IV, Once, first dose 01/11/20 8:56:00 CDT, stop date 01/11/20 8:56:00 CDT LR 1,000 mL 2020-0 No 1,000 mL, M emoria 7-15 IV, 30 l 12:27: mL/hr, start date 01/11/20 7:27:00 CDT, 1.88, m2 Lidocaine 2020-0 No 0.2 mL, Memor ia 2% 0.2 mL 7-15 Injection, l IV Start 12:27: Subcutaneo [facility] [[facility]] 00 , Once PRN for other (see comment), first dose 01/11/20 7:27:00 CDT furosemide 2020-0 Yes 40 mg = 1 Me moria 40 mg oral 7-11 tabs, l tablet 20:55: Oral, Daily, BLE EDEMA Metformin 2020-0 Yes 1,000 mg, Mem oria 7-11 Oral, BID, l 20:54: DM Thyroxine 2020-0 Yes 75 mcg, Memor ia 7-11 Oral, l 20:54: Daily, HYPOTHYROI DISM metFORMIN 2020-0 Yes 1,000 mg, Mem oria 7-11 Oral, BID, l 20:54: DM levothyroxi 2020-0 Yes 75 mcg, Mem oria ne 7-11 Oral, l 20:54: Daily, HYPOTHYROI DISM sitagliptin 2020-0 Yes 100 mg = 1 Memoria 100 MG Oral 7-11 tabs, l Tablet 20:37: Oral, [place] [Junuvia] Daily, DM Januvia 100 2020-0 No 100 mg = 1 Memoria mg oral 7-11 tabs, l tablet 20:37: Oral, [place] Daily, DM glimepiride 2020-0 Yes 4 mg = 1 Me moria 4 mg oral 7-11 tabs, l tablet 20:36: Oral, BID, Delilah nn 00 DM atorvastati 2020-0 Yes 10 mg = 1 M emoria n 10 mg 7-11 tabs, l oral tablet 20:35: Oral, Delilah nn Daily, HIGH CHOL apixaban 2020-0 Yes 2.5mg Q.5D Take 2.5 Meth margarita (ELIQUIS) 2-[address] 2.5 mg 14:29: mouth 2 Hospita tablet 53 (two) l times a day. amIODarone 2020-0 Yes 200mg QD Take 200 Me thodi (PACERONE) 2-[address] 200 MG 14:29: mouth Hospita tablet 53 daily. l SITagliptin 2020-0 Yes 100mg QD Take 100 M ethodi (JANUVIA) 2-[address] 100 MG 14:29: mouth Hospita tablet 53 daily. l furosemide 2020-0 Yes 20mg Q.5D Take 20 mg M ethodi (LASIX) 20 2-[address] mg tablet 14:29: (two) Hospita 53 times a l day. potassium 2020-0 Yes 1{tbl} Q.5D Take 1 Meth margarita chloride 2-[address] (KLOR-CON 14:29: mouth 2 Hospi ta M10 ORAL) 53 (two) l times a day. pantoprazol 2020-0 Yes 40mg QD Take 40 mg Methodi e 2-[address] (PROTONIX) 14:29: daily. Hospi ta 40 MG EC 53 l tablet sucralfate 2020-0 Yes 1g Q.25D Take 1 g Me thodi (CARAFATE) 2-[address] 1 gram 14:29: (four) Hospita tablet 53 times a l day. amiodarone 2021- No [id number] 100mg Take 0.5 Univers 200 mg 07-25 tablets by ity of tablet 00:00: 00:00 mouth [place] 00 :00 daily. Medical Branch acetaminoph Yes [id number] 500mg Take 1 Univers en 500 mg -13 tablet by ity o f tablet 00:00: mouth [place] 00 every 4 Medical (four) Branch hours as needed for Pain. apixaban 5 2018-06- No 1358 5mg Take 1 Univ ers mg tablet 07-24 tablet by ity of 00:00: 00:00 mouth [place] 00 :00 every 12 Medical (twelve) Branch hours. Indication s: atrial fibrillati on sucralfate 2018-06- No [id number] 1000mg Take 10 mL Univers 100 mg/mL 07-24 9109 by mouth ity o f [place] 00:00[place] 00[place] 00 [place] and Medical at Branch bedtime. levothyroxi 2018-06 Yes [id number] 75ug Take 1 Univers ne 75 mcg 1-09 tablet by ity o f tablet 00:00: mouth [place] 00 every Medical morning. Branch furosemide 2018-06- No [id number] 40mg Take 1 Univers 40 mg 07-07 tablet by ity of tablet 00:00: 00:00 mouth [place] 00 :00 every Medical morning Branch and evening. Acetaminoph Yes Notes: Baltazar jan en 10 MG/ML 12-23 Infuse l Injectable 16:32: over 15 Herm roshan Solution minutes Do not exceed 4gm/day of acetaminop hen MEDICATION WASTE Product Size: 1000 mg Product Wasted: ___ mg Lactated No 1,000 mL, Baltazar jan Ringers IV 12-23 Rate: 125 l 1,000 mL 16:32: ml/hr, Infuse over: 8 hr, Route: IV, Dosing Weight 71.818 kg, Total Volume: 1,000, Start date: 12/23/17 11:32:00 CDT, Duration: 30 day, Stop date: 01/22/18 11:31:00 CDT, 1.87, m2 Ondansetron No Notes: Baltazar jan 12-23 (Same as: l 16:32: Zofran ODT) Hydromorpho No Notes: Baltazar jan ne 12-23 Same as l 16:32: Dilaudid Acetaminoph No Notes: Do M emoria en 325 MG / 12-23 not exceed l Hydrocodone 16:32: 4gm/day of Herman Bitartrate acetaminop 10 MG Oral hen. (Same Tablet as: [place] 325/10) Solu-Medrol No 125 mg, Mem oria 12-23 Route: [...] Yes 180 mg = 1 Baltazar jan (ALF) 180 12-18 tab, PO, l MG Oral 18:25: Daily, 0 Duc n Tablet 00 Refill(s) [[place] Thyroid] Metformin Yes 1,000 mg = Me moria hydrochlori 12-18 2 tab, PO, l de 500 MG 18:24: Bedtime, # He rmann Oral Tablet 00 60 tab, 0 Refill(s) Acetaminoph Yes 1 tab, PO, Memoria en 325 MG / 01-17 Q4H, Pain l Hydrocodone 18:11: Score 1-3, Herman Bitartrate 00 # 30 tab, 10 MG Oral 0 Tablet Refill(s) Metformin No Notes: Memori a - (Same as: l 22:00: Glucophage ) Take with meal Glyburide No Notes: Memori a - (Same as: l 14:00: Micronase, Diabeta) Take with meals. Metformin No Notes: Memori a 01-16 Same as l 13:00: Glucophage Insulin, No 60 units) Mem oria Regular, 01-16 Stable for l Pork 02:45: 28 days at [place] 00 room temperatur e Expires in days from ____Date Flexeril No Notes: Memoria 7-20 (Same As: l 22:51: Flexeril) Herman 00 Diphenhydra No Notes: Baltazar jan mine 7-20 (Same as: l 13:36: Benadryl) Insulin, No 60 units) Mem oria Regular, 7-20 Stable for l Pork 02:40: 28 days at [place] 00 room temperatur e Expires in days from ____Date Metformin No 1.5 tab, Baltazar jan hydrochlori -19 Route: PO, l de 1000 MG 22:00: QPM, [place] Oral Tablet 00 Dosing Weight 88.636, kg, Start date: 01/14/14 17:00:00, Duration: 30 day, Stop date: 02/12/14 17:00:00 Morphine No Notes: Memoria 7-19 (Same l 18:36: as:MORPhin Herman 00 e Sulfate) Morphine No Notes: Memoria 7-19 (Same l 18:02: as:MORPhin Herman 00 e Sulfate) Amaryl No Notes: Memoria 7-19 (Same as: l 14:00: Amaryl) [place] No 100 mg, Memoria Thyroid 719 Route: PO, l 14:00: Drug form: Herman 00 TAB, Daily, Dosing Weight 88.636, kg, Start date: 01/14/14 9:00:00, Duration: 30 day, Stop date: 02/12/14 9:00:00 Glyburide No 4 mg, Memoria 7-19 Route: PO, l 14:00: Drug form: Herman 00 TAB, BID, Dosing Weight 88.636, kg, Start date: 01/14/14 9:00:00, Duration: 30 day, Stop date: 02/12/14 17:00:00 Metformin No 1,000 mg, Mem oria 7-19 Route: PO, l 14:00: Drug form: Herman TAB, Daily, Dosing Weight 88.636, kg, Start date: 01/14/14 9:00:00, Duration: 30 day, Stop date: 02/12/14 9:00:00 Insulin, No 60 units) Mem oria Regular, 01-14 Stable for l Pork 13:26: 28 days at Herman 00 room temperatur e Expires in days from ____Date Dextrose No 12.5 gm, Memor ia 50% Syringe 01-14 25 mL, l 13:26: Route: Herman 00 IVP, Drug Form: INJ, Dosing Weight 88.636, kg, PRN, PRN Blood Glucose Results, Start date: 01/14/14 8:26:00, Duration: 30 day, Stop date: 02/13/14 8:25:00 Glucagon No 1 mg, Memoria 01-14 Route: IM, l 13:26: Drug form: [place] 00 PDR/INJ, PRN, Dosing Weight 88.636, kg, PRN Blood Glucose Results, Start date: 01/14/14 8:26:00, Duration: 30 day, Stop date: 02/13/14 8:25:00 [place] No Notes: Memoria Thyroid 01-14 (Same As: l 11:30: [place] Thyroid, S-P-T) Ketorolac No 4 days Memor ia 01-14 l 05:00: Herman celecoxib No Notes: Memori a 01-14 NSAID. l 02:00: Please Herman 00 check indication . Not for seizure. (Same As: CeleBREX ) Acetaminoph No 1 tab, Baltazar jan en 325 MG / 01-14 Route: PO, l Hydrocodone 00:35: Dosing Herm roshan Bitartrate 00 Weight 10 MG Oral 81.818, Tablet kg, ONCE, [[place] Start ] date: 01/13/14 19:35:00, Stop date: 01/13/14 19:35:00 Enoxaparin No Notes: Memor ia 01-14 (Same as: l 00:00: Lovenox) Herman [place] Yes 100 mg, Memoria Thyroid 7-18 PO, Daily, l 23:59: 0 Herman Refill(s) celecoxib Yes Special Memor ia 100 MG Oral 7-18 Instructio l Capsule 23:58: ns: prn [place] [Celebrex] 00 Rosuvastati Yes 5 mg = 1 Me moria n calcium 5 7-18 tab, PO, l MG Oral 23:58: Bedtime, 0 Herm roshan Tablet 00 Refill(s) [Crestor] Glyburide Yes 4 mg, PO, Mem oria 7-18 BID, 0 l 23:57: Refill(s) [place] 00 Metformin Yes Special Memor ia 7-18 Instructio l 23:56: ns: [place] 1,000mg in the mornig and 1500 mg in the evening iodixanol No Special Memor ia 7-18 Instructio l 23:42: ns: Weight Herman 00 = 75 - 94kg -- "To be infused by Radiology Staff ONLY" Bisacodyl No Notes: Memori a -18 (Same As: l 23:30: Dulcolax, Herman 00 Correctol) (Do Not Crush) "Do Not Crush" Docusate No Notes: Memoria 7-18 (Same as: l 23:30: Colace) (Do Not Crush) Acetaminoph No Notes: Do M emoria en 325 MG / -18 not exceed l Hydrocodone 23:30: 4gm/day of [place] Bitartrate 00 acetaminop 10 MG Oral hen. (Same Tablet as: [place] 325/10) Immunizations Ordered Filled Immunization Date Status Comments Sour e Immunization Name Name Pneumococcal 2019-04-05 Completed [place] o f Polysaccharide, 00:00:00 [facility] ical PPSV23 (PNEUMOVAX) Branch Influenza High Dose 2019-04-05 [facility] Vital Signs Vital Name Observation Time Observation Value Comments Source Systolic blood 2021-09-17 20:47:00 136 mm[Hg] Univer sity of pressure [facility] Diastolic blood 2021-09-17 20:47:00 73 mm[Hg] Unive rsity of pressure [facility] Heart rate 2021-09-17 20:47:00 71 /min [facility] Body temperature 2021-09-17 20:47:00 36.83 [facility] 2021-09-17 20:47:00 18 /min [facility] Body height 2021-09-17 20:47:00 166.4 cm [facility] Body weight 2021-09-17 20:47:00 85.73 kg [facility] BMI 2021-09-17 20:47:00 30.97 kg/m2 [facility] Respitory Rate 2022-06-18 14:40:00 Memori al Herman Systolic (mm Hg) 2022-06-18 14:40:00 Baltazar rial [place] Diastolic (mm Hg) 2022-06-18 14:40:00 Mem orial [place] Systolic (mm Hg) 2022-06-18 14:20:00 Baltazar rial Herman Diastolic (mm Hg) 2022-06-18 14:20:00 Mem orial [place] Respitory Rate 2022-06-18 14:20:00 Memori al Herman Heart Rate 2022-06-18 14:20:00 Memorial Herman Systolic (mm Hg) 2022-06-18 14:10:00 Baltazar rial Herman Diastolic (mm Hg) 2022-06-18 14:10:00 Mem orial [place] Heart Rate 2022-06-18 14:10:00 Memorial Herman Respitory Rate 2022-06-18 14:10:00 Memori al [place] Temperature Oral (F) 2022-06-18 14:00:00 36.8 Katalina [facility] Heart Rate 2022-06-18 14:00:00 Memorial Herman Height 2022-06-18 13:15:00 167.6 cm Memorial [place] Weight 2022-06-18 13:15:00 Memorial Herman Height 2022-06-16 14:27:00 167.6 cm Memorial Herman Weight 2022-06-16 14:27:00 Memorial [place] Respitory Rate 2020-01-19 18:00:00 Memori al Herman Respitory Rate 2020-01-19 17:00:00 Memori al [place] Systolic (mm Hg) 2020-01-19 17:00:00 Baltazar rial [place] Diastolic (mm Hg) 2020-01-19 17:00:00 Mem orial Herman Respitory Rate 2020-01-19 16:00:00 Memori al [place] Systolic (mm Hg) 2020-01-19 15:00:00 Baltazar rial Herman Diastolic (mm Hg) 2020-01-19 15:00:00 Mem orial [place] Systolic (mm Hg) 2020-01-19 14:00:00 Baltazar rial [place] Diastolic (mm Hg) 2020-01-19 14:00:00 Mem orial [place] Height 2020-01-17 19:55:00 165.1 cm Memorial Herman Weight 2020-01-17 19:55:00 [facility] [place] BMI Calculated 2020-01-17 19:55:00 Memori al [place] Respitory Rate 2020-01-11 15:08:00 Memori al [place] Systolic (mm Hg) 2020-01-11 15:08:00 Baltazar rial [place] Diastolic (mm Hg) 2020-01-11 15:08:00 Mem orial [place] Heart Rate 2020-01-11 14:50:00 [facility] [place] Respitory Rate 2020-01-11 14:50:00 Memori al [place] Systolic (mm Hg) 2020-01-11 14:50:00 Baltazar rial [place] Diastolic (mm Hg) 2020-01-11 14:50:00 Mem orial [place] Heart Rate 2020-01-11 14:40:00 [facility] [place] Respitory Rate 2020-01-11 14:40:00 Memori al [place] Systolic (mm Hg) 2020-01-11 14:40:00 Baltazar rial [place] Diastolic (mm Hg) 2020-01-11 14:40:00 Mem orial [place] Heart Rate 2020-01-11 14:30:00 [facility] [place] Temperature Oral (F) 2020-01-11 14:20:00 36.2 Katalina [facility] Temperature Oral (F) 2020-01-11 12:33:00 37 Katalina [facility] [place] Height 2020-01-11 12:33:00 167.6 cm Memorial [place] Height 2020-01-07 20:35:00 167.6 cm [facility] [place] Respitory Rate 2017-12-23 17:00:00 Memori al Herman Systolic (mm Hg) 2017-12-23 17:00:00 Baltazar rial [place] Diastolic (mm Hg) 2017-12-23 17:00:00 Mem orial Herman Systolic (mm Hg) 2017-12-23 16:45:00 Baltazar rial [place] Diastolic (mm Hg) 2017-12-23 16:45:00 Mem orial Herman Respitory Rate 2017-12-23 16:45:00 Memori al Herman Respitory Rate 2017-12-23 16:34:00 Memori al [place] Systolic (mm Hg) 2017-12-23 16:34:00 Baltazar rial [place] Diastolic (mm Hg) 2017-12-23 16:34:00 Mem orial [place] BMI Calculated 2017-12-23 15:40:00 Memori al [place] Weight 2017-12-23 15:40:00 [facility] [place] Height 2017-12-18 18:10:00 172.72 cm Memorial [place] Temperature Oral (F) 2014-01-17 21:11:00 98.3 F [facility] Heart Rate 2014-01-17 21:11:00 [facility] [place] Respitory Rate 2014-01-17 21:11:00 Memori al Herman Systolic (mm Hg) 2014-01-17 21:11:00 Baltazar rial Herman Diastolic (mm Hg) 2014-01-17 21:11:00 Mem orial Herman Systolic (mm Hg) 2014-01-17 16:58:00 Baltazar rial [place] Diastolic (mm Hg) 2014-01-17 16:58:00 Mem orial Herman Respitory Rate 2014-01-17 16:58:00 Memori al Herman Heart Rate 2014-01-17 16:58:00 [facility] [place] Temperature Oral (F) 2014-01-17 16:58:00 97.9 F [facility] Herman Systolic (mm Hg) 2014-01-17 12:59:00 Baltazar rial Herman Respitory Rate 2014-01-17 12:59:00 Memori al Herman Temperature Oral (F) 2014-01-17 12:59:00 97.7 F [facility] [place] Diastolic (mm Hg) 2014-01-17 12:59:00 Mem orial [place] Heart Rate 2014-01-17 12:59:00 [facility] [place] Weight 2014-01-14 01:42:00 [facility] [place] BMI Calculated 2014-01-14 01:42:00 Memori al [place] Height 2014-01-14 01:42:00 170.18 cm [facility] Height 2014-01-14 01:15:00 165.1 cm [facility] [place] BMI Calculated 2014-01-14 01:15:00 Memori al Herman Weight 2014-01-14 01:15:00 [facility] [place] Weight 2014-01-13 21:44:00 [facility] [place] BMI Calculated 2014-01-13 21:44:00 Memori al [place] Height 2014-01-13 21:44:00 165.1 cm [facility] [place] Procedures Procedure Date / Time Performing Source Performed Clinician ESOPHAGOGASTRODUODENOSCOPY 2022-06-18 Memor ial [place] W/BIOPSY [id number] (N/A)<sup>1</sup> 13:54:00 Lens implantation 2022-04-29 [facility] Delilah nn 00:00:00 HIGH RISK HPV-THIN PREP 2021-09-17 Adum, Cherri Guzmáni ty of 21:38:00 [facility] PAP SMEAR-LIQUID BASED-CP 2021-09-17 Adum, Cherri Amador Univer sity of 21:38:00 [facility] POCT URINALYSIS W/O SPECIFIC 2021-09-17 Adum, Cherri Amador Uni versity of GRAVITY 00:00:00 [facility] COLONOSCOPY FLEXIBLE; WITH BIOPSY; 2020-01-11 [facility] [place] SINGLE OR MULTIPLE [id number] 14:00:00 (N/A)<sup>1</sup> CARDIAC ABLATION 2018-06-29 [facility] Duc n 00:00:00 Fusion of lumbar spine<sup>1</sup> 2013-06-29 [facility] Herman 00:00:00 Laminectomy<sup>2</sup> 2001-06-29 [facility] Herman 00:00:00 BACK SURGERIES [facility] Herman Cholecystectomy [facility] Herman Colonoscopy [facility] [place] LASIK [facility] Herman POLYP REMOVAL FROM BLADDER Memor ial [place] SINUS SURGERY [facility] Herman Tonsillectomy [facility] [place] Total hysterectomy [facility] Herm roshan Carpal tunnel release [facility] ermann Hysterectomy [facility] Herman Tonsillectomy and adenoidectomy [facility] [place] [facility] Plan of Care Planned Activity Planned Date Details Comments Source Future Scheduled 2022-12-11 [facility] Test 20:31:32 malignant neoplasm of colon (procedure) [code = 340498389] Future Scheduled 2022-12-11 [facility] Test 20:31:32 malignant neoplasm of colon (procedure) [code = 910462169] Future Scheduled 2022-12-11 Scre[facility] Test 20:31:32 malignant neoplasm of colon (procedure) [code = 315822751] Future Scheduled 2022-12-11 COVID-19 VACCINE (#1) [facility] Test 20:31:32 [code = COVID-19 VACCINE (#1)] Future Scheduled 2022-12-11 Hepatitis C screening [facility] Test 20:31:32 (procedure) [code = 934147197] Future Scheduled 2022-12-11 BREAST CANCER [facility] [place] [facility] Test 20:31:32 SCREENING [code = BREAST CANCER SCREENING] Future Scheduled 2022-12-11 SHINGLES VACCINES (1 [facility] Test 20:31:32 of 2) [code = SHINGLES VACCINES (1 of 2)] Future Scheduled 2022-12-11 HEPATITIS B VACCINES [facility] Test 20:31:32 (1 of 3 - Risk 3-dose series) [code = HEPATITIS B VACCINES (1 of 3 - Risk 3-dose series)] Future Scheduled 2022-12-11 65+ [facility] 20:31:32 VACCINE (2 - PCV) [code = 65+ PNEUMOCOCCAL VACCINE (2 - PCV)] Future Scheduled 2022-12-11 INFLUENZA VACCINE [facility] Test 20:31:32 [code = INFLUENZA VACCINE] Future Scheduled 2022-12-11 [facility] Test 20:31:32 malignant neoplasm of colon (procedure) [code = 471008311] Future Scheduled 2022-12-11 [facility] Test 20:31:32 malignant neoplasm of colon (procedure) [code = 690964484] Encounters Start End Encounter Admission Attending Care Care Encounter Source Date/Time Date/Time Type Type Clinicians Facility Department ID 2020-05-20 Inpatient [facility] SANDRA [id number] [facility] 21:44:00 40 [facility] 2022-06-18 2022-06-18 Outpatient [facility] [id number] Memoria 11:54:59 14:54:00 [facility] 2022-06-18 2022-06-18 [facility] [id number] Memoria 05:54:59 08:54:00 r adrian Sutton 2022-06-18 2022-06-18 Outpatient Lee, [id number] 05:54:59 08:54:00 Pee Swift 8 2021-09-19 2021-09-19 [facility] [id number] Univers 00:00:00 00:00:00 Cherri RAHMAN [id number] ity [facility] [id number] PROF[place] [id number] Oh dical [address] 2021-09-17 2021-09-17 Outpatient R AD, [facility] [id number] Univers 14:00:00 16:45:46 CHERRI ity of [facility] 2021-09-17 2021-09-17 [facility] [id number] [id number] Univers 14:00:00 16:45:46 Visit Cherri RAHMAN [id number] ity [facility] [id number] [phone] Oh dic[address] 2021-09-17 2021-09-17 Outpatient R AD, [facility] [id number] [employer] 14:00:00 16:45:46 CHERRI ity [facility] 2021-09-13 2021-09-13 Orders Doctor PERES [id number] [id number] Univers 00:00:00 00:00:00 Only Unassigned, JHOAN [id number] ity of [facility] [id number] Cristobal as [id number] [address] 2020-09-20 2020-09-20 Outpatient DIMITRIS, [facility] [id number] [place] 00:00:00 00:00:00 ALI [address] 2020-09-03 2020-09-03 [facility] 1.2.840.114 [id number] [employer] 00:00:00 00:00:00 Outreach Deacon PRIMARY [id number] i ty of [facility] [id number] Dar HOANG [phone] Me dical [address] 2020-08-23 2020-08-23 Outpatient [facility] [id number] [place] 00:00:00 00:00:00 ALI [address] 2020-08-16 2020-08-16 Outpatient [facility] [id number] [place] 00:00:00 00:00:00 ALI 590 Method i 2020-08-09 2020-08-09 Outpatient [facility] [id number] 5555 [place] 00:00:00 00:00:00 ALI 699 Method i 2020-08-02 2020-08-02 Outpatient [facility] [id number] [place] 00:00:00 00:00:00 ALI 021 Method i 2020-07-19 2020-07-19 Outpatient [facility] [id number] 5328 [place] 00:00:00 00:00:00 ALI 906 Method i 2020-07-12 2020-07-12 Outpatient [facility] [id number] [place] 00:00:00 00:00:00 ALI 060 Method i 2020-05-08 2020-05-08 Telephone Nurse, [facility] 1.2.840.114 [id number] 00:00:00 00:00:00 Fam Pob I Health 350.1.13.10 [place] 4.2.7.2.686 Professio [phone] nal 044 [address] One 2020-05-08 2020-05-08 Telephone Nurse, [facility] 1.2.840.114 [id number] [facility] 00:00:00 00:00:00 Fam Pob I Health 350.1.13.10 ity of [place] 4.2.7.2.686 Cristobal rashawn Professio [phone] Oh dictn nal 044 [place] Office Building One 2020-05-07 2020-05-07 Outpatient R LEWIS [facility] [id number] Univers 10:40:00 10:40:00 MONICA ity of [facility] 2020-05-07 2020-05-07 Laboratory Lab, [facility] 1.2.840.114 [id number] 09:24:42 09:44:42 Only Fam Pob I Health 350.1.13.10 [place] 4.2.7.2.686 Professio [phone] [place] [address] [facility] 2020-05-07 2020-05-07 Laboratory Lab, [facility] Fam Pob I [facility] 1.2. 840.114 [id number] [facility] 09:24:42 09:44:42 Only Monica [facility] 350.1.13.10 ity of [place] 4.2.7.2.686 Cristobal as Professio [phone] Oh dical [address] 2020-03-30 2020-03-30 Orders Doctor LARISA 1.2.840.114 [id number] 00:00:00 00:00:00 Only Unassigned, JHOAN 350.1.13.10 [facility] 4.2.7.2.686 [phone] [facility] 2020-03-30 2020-03-30 Orders Doctor LARISA 1.2.840.114 [id number] Univers 00:00:00 00:00:00 Only Unassigned, JHOAN 350.1.13.10 ity of [facility] 4.2.7.2.686 Cristobal as [phone] [address] 2020-03-14 2020-03-14 Ambulatory nullFlavo MNA [id number] [place] 13:15:00 13:15:00 Pre-Reg r Neurology 03 adrian Sutton 2020-03-14 2020-03-14 Outpatient MHIE MHIE [id number] [place] 08:15:00 08:15:00 Rigo Sutton 2020-03-14 2020-03-14 Outpatient JESSE MoralesMISCHCAYLA 585 [id number] 08:15:00 08:15:00 Ender Sotomayor 2020-03-06 2020-03-07 Outpatient nullFlavo MNA [id number] [place] 13:15:00 04:59:59 r Neurology 04 l Emeterio Hutsonann 2020-03-06 2020-03-06 Outpatient WAYNE MoralesMISCHER MHMISCHER [id number] 08:15:00 23:59:59 Ender Geovani Sotomayor 2020-03-06 2020-03-06 Outpatient MHIE IE [id number] [place] 08:15:00 08:15:00 04 [facility] 2020-01-17 2020-01-19 Inpatient nullFlavo [facility] [id number] Memoria 19:11:00 18:35:00 r Herman 03 [facility] 2020-01-17 2020-01-19 Outpatient [facility] [id number] 14:11:00 13:35:00 Elizabeth 03 2020-01-17 2020-01-19 Outpatient [facility], [facility] [id number] 14:11:00 13:35:00 Elizabeth 03 2020-01-11 2020-01-11 [facility] [id number] Memoria 12:06:13 15:17:00 r Herman [facility] 2020-01-11 2020-01-11 Outpatient nullFlavo [facility] [id number] Memoria 07:06:13 10:17:00 r [facility] 2020-01-11 2020-01-11 Outpatient [facility], [id number] 07:06:13 10:17:00 Pee Swift 8 2019-11-01 2019-11-01 Outpatient PRAVEEN, [facility] [id number] 9603 [place] 00:00:00 00:00:00 RAÚL Guerrero i 2019-10-10 2019-10-10 Outpatient WESTON SABA [facility] [id number] [facility] 09:00:00 09:00:00 ity of [facility] 2019-10-10 2019-10-10 Telemroger Bravo [facility] 1.2.840.114 [id number] 07:16:30 07:46:30 ne Visit Ayah IVY 350.1.13.10 [place] 4.2.7.2.686 [place] [phone] [facility] 2019-10-10 2019-10-10 TelemAyah Pérez [facility] 1.2.840. 114 [id number] Univers 07:16:30 07:46:30 ne Visit Weston Aguero SPECIALTY 350.1.13.10 [place] [phone] [address] 2019-10-07 2019-10-07 Telephone Weston Aguero [facility] 1.2.840.114 [id number] Univers 00:00:00 00:00:00 W SPECIALTY 350.1.13.10 [place] [phone] [address] 2019-09-29 2019-09-29 Outpatient R MANISH [facility] [id number] Univers 10:30:00 10:30:00 CAMMIE grullon [facility] 2019-09-29 2019-09-29 Telemedici [facility] 1.2.840.114 [id number] Univers 10:01:17 10:16:17 ne Visit Cammie Rahman 350.1.13.10 ity of [place] [phone] [address] 2019-09-26 2019-09-26 Outpatient R MANISH [facility] [id number] Univers 09:30:00 09:30:00 CAMMIE itedel of [facility] 2019-09-12 2019-09-12 Telephone [facility] 1.2.014.783 [id number] Univers 00:00:00 00:00:00 Ayah SPECIALTY 350.1.13.10 ity of [place] [phone] [address] 2019-09-07 2019-09-07 Office Weston Aguero [facility] 1.2.840.114 [id number] Univers 10:01:39 12:26:28 Visit W PRIMARY 350.1.13.10 it y of [place] [phone] [address] 2019-09-07 2019-09-07 Outpatient R WESTON AGUERO [facility] [id number] Univers 10:00:00 10:00:00 ity of [facility] 2019-09-07 2019-09-07 Orders Doctor LARISA 1.2.840.114 [id number] Univers 00:00:00 00:00:00 Only Unassigned, JHOAN 350.1.13.10 ity of [facility] 4.2.7.2.686 Cristobal as [phone] [address] 2019-09-05 2019-09-06 Outpatient [facility] [id number] Memoria 19:18:30 04:59:59 r [facility] 2019-09-05 2019-09-05 [facility] [id number] 14:18:30 23:59:59 Pee Swift 8 2019-09-05 2019-09-05 Outpatient [facility] [id number] Memoria 14:18:30 23:59:59 r [facility] 2019-08-29 2019-08-29 [id number] [facility] 09:31:51 10:01:20 Visit Cammie Rahman 350.1.13.10 i [place] [phone] Oh dical nal [address] [place] [address] 2019-08-29 2019-08-29 Outpatient R [facility] [id number] Univers 09:30:00 09:30:00 CAMMIE grullon of [facility] 2019-08-15 2019-08-19 Inpatient POSANI, [facility] [id number] 89 [place] 00:00:00 00:00:00 MAIKOL Bridges Method i 2019-08-10 2019-08-10 Clinic [facility] 1.2.383.881 [id number] Univers 00:00:00 00:00:00 Assessment Cammie Rahman 350.1.13.10 [place] of [place] [phone] Oh dical nal [address] [place] [address] 2019-08-03 2019-08-03 Telephone [facility] 1.2.840.114 [id number] Univers 00:00:00 00:00:00 Cammie Rahman 350.1.13.10 i [place] [phone] Oh dical nal 377 [facility] 2019-08-01 2019-08-02 Office Manish [facility] 1.2.864.928 [id number] Univers 09:10:26 17:03:13 Visit Cammie Rahman 350.1.13.10 i [place] [phone] Oh dical nal 377 [facility] 2019-07-26 2019-07-26 Transition Lynette Antunez 1.2.840.114 [id number] Univers 00:00:00 00:00:00 of Care [place] Card 350.1.13.10 i ty of [place].2.7.2.[place] [phone] [facility] [address] 2019-07-22 2019-07-25 Hospital Danyel Hammondel [facility] 1.2.840. 114 [id number] Univers 10:20:00 17:51:00 Encounter Ronald Valiente 350.1.13.10 ity of [place] [phone] [facility] [address] 2019-07-22 2019-07-22 Anesthesia Leticia Laughlin [facility] 1. 2.840.114 [id number] Univers 12:42:00 17:00:00 Lyle Browne 350.1.13.10 [place] Surgical [phone] [facility] [address] 2019-07-15 2019-07-15 Prep For [facility] 1.2.840.114 [id number] Univers 00:00:00 00:00:00 Surgery Kaylene Rahman 350.1.13.10 [place] of [place] [phone] Oh dical nal 204 [facility] 2019-07-14 2019-07-14 Office Manish [facility] 1.2.900.422 [id number] Univers 14:19:48 16:17:12 Visit Cammie Rahman 350.1.13.10 i ty of [place] [phone] Oh dical nal 377 [facility] 2019-07-14 2019-07-14 Orders Doctor LARISA 1.2.840.114 [id number] Univers 00:00:00 00:00:00 Only Unassigned, JHOAN 350.1.13.10 ity of [place] [facility] 4.2.7.2.686 Cristobal as [phone] [facility] [address] 2019-07-12 2019-07-12 Transition Lynette Antunez 1.2.840.114 [id number] Univers 00:00:00 00:00:00 of Care [place] Card 350.1.13.10 i ty of [place].2.[place] [phone] [facility] [address] 2019-07-08 2019-07-08 Emergency X CHON, [facility] ERT [id number] Univers 01:53:24 04:29:00 EDWIN grullon of [facility] 2017-12-23 2017-12-24 Day nullFlavo [facility] [id number] Memoria 13:43:00 04:59:00 Surgery r Mauldin 01 l Orthopedic [facility] 2017-12-23 2017-12-23 Outpatient ZORAN Lomeli [facility] [id number] 08:43:00 23:59:00 Larisa Mike 2017-12-09 2017-12-09 [facility] [id number] Memoria 08:30:00 08:30:00 02 adrian Sutton 2017-10-14 2017-10-14 Outpatient IE IE [id number] Memoria 14:15:00 14:15:00 01 adrian Sutton 2014-05-03 2014-05-04 Outpt Diag nullFlavo [facility] [id number] Memoria 14:52:00 05:59:00 Services r Outpatient 01 l Hanna Sutton 2014-05-03 2014-05-03 Outpatient Naveen 2.16.840. 2.16.840.1. [id number] 08:52:00 23:59:00 Pako [id number]. [id number] Anaya 3.615.0.1 5.0.908 41 1567-09-03 2014-03-02 Outpt Diag nullFlavo [facility] [id number] Memoria 12:46:00 04:59:00 Services r Outpatient 00 l Imaging [facility] 2014-03-01 2014-03-01 Outpatient Naveen, 2.16.840. 2.16.840.1. [id number] 07:46:00 23:59:00 Pako 1.376061. [id number] Anaya 3.615.0.1 5.0.178 23 1415-07-18 2014-01-17 Inpatient nullFlavo [facility] [id number] Memoria 21:41:00 21:40:00 [facility] 99 l [facility] 2014-01-13 2014-01-17 Outpatient Julia, 2.16.840. 2.16.840.1. 4 [id number] 16:41:00 16:40:00 Veronika Forbes.230325. 499517.3.61 99 [place] 3.615.0.1 5.0.101 01 Results Test Description Test Time Test Comments Results Result Comments Source LABORATORY 2022-06-18 13:32:00 Test Item Value Reference Range Interpretation Comme nts Blood Glucose, Capillary (test code = Blood Glucose, Capillary) 179 74-106 [facility] URINALYSIS W/O SPECIFIC [id number] 21:37:00 Test Item Value Reference Range Interpretation Comments POCT PH U (test code = 3254) 5 mg/dl 5-8 POCT U LEUK EST (test code = negative Negative - Negative 3263) POCT U NIT (test code = 3262) negaitve Negative - Negative POCT U PROT (test code = 3259) negaitve Negative - Negative POCT U GLU (test code = 3256) 1000+ Negative - Negative POCT U KETONE (test code = 3258) negative Negative - Negative POCT U BLD (test code = 3257) negaitve Negative - Negative [facility]- XR CHEST 1 [id number] 07:16:00 [facility] AMELIA AKHTARName: IRVING REHMAN : 1950 Sex: F FAX: Kenyon Stubbs MD [phone] [place]: St: ADM Name: IRVING REHMAN [facility] Amelia Akhtar : 1950 Age/S: 69/F [address] [place] [address] Unit #: [id number] Loc: [place] [address] Phys: Kenyon Castro MD Acct: [id number] Dis Date: Status: ADM IN PHONE #: [phone] Exam Date: 05/21/2020116 FAX #: [phone] Reason: PREOP EXAMS: CPT CODE: [id number] XR CHEST 1 V [id number] Study: - XR CHEST 1 V 05/21/2020 5:00 AM Patient Name: IRVING REHMAN MR: [id number] : 1950; Age: 69 years y/o Female Ordering Physician: Kenyon Castro MD Clinical Indication: Right wrist fracture PREOP Comparison: None FINDINGS LUNGS: The lungs are clear of consolidation, pleural effusion, and pneumothorax. HEART AND MEDIASTINUM: No rmal size heart. LINES: None. OSSEOUS STRUCTURES: Mild spinal degenerative change without fracture, dislocation, or focal osseous lesion. . Fusion hardware in the lumbar spine is partially imaged. OTHER: Metallic density overlies the left lower thorax.. IMPRESSION: No acute abnormality as above discussed. SL: [id number] at 0716 Reportedand signed by: Óscar Ochoa M.D. CC: Kenyon Castro Technologist: RT Leroy(R) TrnscrdDate/Time/By: 05/21/2020 (0723) : By: [email or web address] Orig Print D/T: S: 05/21/2020 (0086) PAGE 1 Signed ReportPROTHROMBIN TIME 2020-05-21 06:00:00 Test Item Value Reference Range Interpretation Comments PROTHROMBIN TIME 11.4 SECONDS 9.3-12.9 N PATIENT (test code = PTP) INTERNATIONAL NORMAL 1.0 0.8-1.2 N TARGET INR BY RATIO (test code = INDICATIO N Indication INR) INR1. Prophylax is of venous thrombos is 2.0 - 3.0 (orthoped ic surgery), Proph ylaxis of venous throm bosis (other than hig h-risk surgery), Treat ment of Deep Vein Thrombosis/Pulm onary Embolism, Preve ntion of systemic emb olism - Tissue heart va lves, Acute Myocardia l Infarction (to prevent systemic emboli sm), Valvular heart disease, Atrial Fibrillation, Bileaflet mecha nical valve in aortic position.2. Mec hanical prosthetic valv es (high risk), 2. 5 - 3.5 Presence of Lup us Anticoagulant o r Antiphospholipi d Antibodies, Pre vention of systemic emb olism - Acute Myocardia l Infarction (to prevent recurrent infar ct). THROMBOPLASTIN TIME [id number] 06:00:00 Test Item Value Reference Range Interpretation Comments THROMBOPLASTIN TIME 29.4 Seconds 25.0-39.5 N Therape utic Range: PARTIAL (test code = 50.4 - 88.3 Seconds PTT) Effective 10/12/2018 RENAL FUNCTION [id number] 05:56:00 Test Item Value Reference Range Interpretation Comments SODIUM (test code = NA) 139 mEq/L 134-147 N POTASSIUM (test code = 3.8 mEq/L 3.4-5.0 N K) CHLORIDE (test code = 108 mEq/L 100-108 N CL) CARBON DIOXIDE (test 27 mEq/L 21-33 N code = CO2) ANION GAP (test code = 8 0-20 N GAP) GLUCOSE (test code = 90 mg/dL 70-110 N GLU) BLOOD UREA NITROGEN 18 mg/dL 7-18 N (test code = BUN) GLOMERULAR FILTRATION 70.7 70-80 N Units of measure = RATE (test code = GFR) ml/mi n/1.73 m2 CREATININE (test code = 0.8 mg/dL 0.6-1.3 N CREAT) ALBUMIN (test code = 3.60 g/dL 3.4-5.0 N ALB) CALCIUM (test code = CA) 8.7 mg/dL 8.0-10.5 N PHOSPHOROUS (test code = 3.2 MG/DL 2.5-4.9 N PHOS) [id number] 05:56:00 Test Item Value Reference Range Interpretation Comments MAGNESIUM (test code = MAG) 1.73 mg/dL 1.80-2.40 L CBC W/AUTO [id number] 05:39:00 Test Item Value Reference Range Interpretation Comments WHITE BLOOD CELL (test code = 8.6 x10 3/uL 4.5-11.0 N WBC) RED BLOOD CELL (test code = 3.55 x10 6/uL 3.54-5.02 N RBC) HEMOGLOBIN (test code = HGB) 10.8 g/dL 11.0-15.0 L HEMATOCRIT (test code = HCT) 33.6 % 33.0-45.0 N MEAN CELL VOLUME (test code = 94.6 fL 81.0-99.0 N MCV) MEAN CELL HGB (test code = MCH) 30.4 pg 27.0-33.0 N MEAN CELL HGB CONCETRATION 32.1 g/dL 33.0-37.0 L (test code = MCHC) RED CELL DISTRIBUTION WIDTH CV 15.3 % 11.5-14.5 H (test code = RDW) RED CELL DISTRIBUTION WIDTH SD 53.0 fL 37.0-54.0 N (test code = RDW-SD) PLATELET COUNT (test code = 184 x10 3/uL 150-400 N PLT) MEAN PLATELET VOLUME (test code 12.3 fL 7.0-9.0 H = MPV) NEUTROPHIL % (test code = NT%) 57.1 % 56.0-77.0 N IMMATURE GRANULOCYTE % (test 0.4 % 0.0-2.0 N code = IG%) LYMPHOCYTE % (test code = LY%) 28.0 % 14.0-32.0 N MONOCYTE % (test code = MO%) 9.6 % 4.8-9.0 H EOSINOPHIL % (test code = EO%) 4.2 % 0.3-3.7 H BASOPHIL % (test code = BA%) 0.7 % 0.0-2.0 N NUCLEATED RBC % (test code = 0.0 % 0-0 N NRBC%) NEUTROPHIL # (test code = NT#) 4.90 x10 3/uL 2.0-7.6 N IMMATURE GRANULOCYTE # (test 0.03 x10 3/uL 0.00-0.03 N code = IG#) LYMPHOCYTE # (test code = LY#) 2.40 x10 3/uL 1.0-3.8 N MONOCYTE # (test code = MO#) 0.82 x10 3/uL 0.1-0.8 H EOSINOPHIL # (test code = EO#) 0.36 x10 3/uL 0.0-0.2 H BASOPHIL # (test code = BA#) 0.06 x10 3/uL 0.0-0.2 N NUCLEATED RBC # (test code = 0.00 x10 3/uL 0.0-0.1 N NRBC#) MANUAL DIFF REQUIRED (test code NO = MDIFF) CBC W/AUTO [id number] 05:38:00 Test Item Value Reference Range Interpretation Comments WHITE BLOOD CELL (test code = x10 3/uL 4.5-11.0 WBC) RED BLOOD CELL (test code = RBC) x10 6/uL 3.54-5.02 HEMOGLOBIN (test code = HGB) g/dL 11.0-15.0 HEMATOCRIT (test code = HCT) 33.6 % 33.0-45.0 N MEAN CELL VOLUME (test code = fL 81.0-99.0 MCV) MEAN CELL HGB (test code = MCH) pg 27.0-33.0 MEAN CELL HGB CONCETRATION (test g/dL 33.0-37.0 code = MCHC) RED CELL DISTRIBUTION WIDTH CV % 11.5-14.5 (test code = RDW) PLATELET COUNT (test code = PLT) 184 x10 3/uL 150-400 N NEUTROPHIL % (test code = NT%) % 56.0-77.0 LYMPHOCYTE % (test code = LY%) % 14.0-32.0 NEUTROPHIL # (test code = NT#) x10 3/uL 2.0-7.6 LYMPHOCYTE # (test code = LY#) x10 3/uL 1.0-3.8 MANUAL DIFF REQUIRED (test code = MDIFF) CHEM [id number] 06:41:00 Test Item Value Reference Range Interpretation Comments Glucose Lvl (test code = Glucose Lvl) 219 70-99 [facility] [id number] 06:41:00 Test Item Value Reference Range Interpretation Comments BUN (test code = BUN) 9 7-22 [facility] [id number] 06:41:00 Test Item Value Reference Range Interpretation Comments Creatinine Lvl (test code = Creatinine 0.87 0.50-1.40 Lvl) [facility] [id number] 06:41:00 Test Item Value Reference Range Interpretation Comments Sodium Lvl (test code = Sodium Lvl) 140 135-145 [facility] [id number] 06:41:00 Test Item Value Reference Range Interpretation Comments Potassium Lvl (test code = Potassium 3.4 3.5-5.1 Lvl) [facility] [employer] [id number] 06:41:00 Test Item Value Reference Range Interpretation Comments Chloride Lvl (test code = Chloride Lvl) 108 95-109 [facility] [id number] 06:41:00 Test Item Value Reference Range Interpretation Comments CO2 (test code = CO2) 26 24-32 [facility] [id number] 06:41:00 Test Item Value Reference Range Interpretation Comments AGAP (test code = AGAP) 9.4 10.0-20.0 [facility] [id number] 06:41:00 Test Item Value Reference Range Interpretation Comments Calcium Lvl (test code = Calcium Lvl) 7.9 8.5-10.5 [facility] [id number] 06:41:00 Test Item Value Reference Range Interpretation Comments B/C Ratio (test code = B/C Ratio) 10 1 6-25 [place] [id number] 06:41:00 Test Item Value Reference Range Interpretation Comments Total Protein (test code = Total 5.5 6.4-8.4 Protein) [address]07-23 06:41:00 Test Item Value Reference Range Interpretation Comments Albumin Lvl (test code = Albumin Lvl) 2.8 3.5-5.[address]07-23 06:41:00 Test Item Value Reference Range Interpretation Comments Globulin (test code = Globulin) 2.7 2.7-4.[address]07[address]23 06:41:00 Test Item Value Reference Range Interpretation Comments A/G Ratio (test code = A/G Ratio) 1.0 1 0.7-1.6 [place] [id number] 06:41:00 Test Item Value Reference Range Interpretation Comments ALT (test code = ALT) 14 See_Comment [Auto mated message] The system which ge nerated this result transmit gianluca reference range : <=65. The reference range was not used to interpr et this result as shankar l/abnormal. [place] [id number] 06:41:00 Test Item Value Reference Range Interpretation Comments AST (test code = AST) 38 See_Comment [Auto mated message] The system which ge nerated this result transmit gianluca reference range : <=37. The reference range was not used to interpr et this result as shankar l/abnormal. [place] [id number] 06:41:00 Test Item Value Reference Range Interpretation Comments Alk Phos (test code = Alk Phos) 39 39-136 [place] [id number] 06:41:00 Test Item Value Reference Range Interpretation Comments Bili Total (test code = Bili Total) 0.5 0.2-1.3 [place] [id number] 06:41:00 Test Item Value Reference Range Interpretation Comments eGFR (test code = eGFR) 68 [place] [id number] 06:41:00 Test Item Value Reference Range Interpretation Comments Segs (test code = Segs) 59.9 45.0-75.0 [place] [id number] 06:41:00 Test Item Value Reference Range Interpretation Comments Lymphocytes (test code = Lymphocytes) 28.9 20.0-40.0 [id number] 06:41:00 Test Item Value Reference Range Interpretation Comments Monocytes (test code = Monocytes) 9.5 2.0-12.0 [facility] [id number] 06:41:00 Test Item Value Reference Range Interpretation Comments Eosinophils (test code = 1.0 See_Comment [A utomated message] The Eosinophils) system which ge nerated this result tra nsmitted reference range : <=4.0. The reference r bri was not used to int erpret this result as normal/abnormal . [facility] [id number] 06:41:00 Test Item Value Reference Range Interpretation Comments Basophils (test code = 0.7 See_Comment [Aut omated message] The Basophils) system which ge nerated this result tra nsmitted reference range : <=1.0. The reference r bri was not used to int erpret this result as normal/abnormal . [facility] [id number] 06:41:00 Test Item Value Reference Range Interpretation Comments Neutrophils # (test code = Neutrophils 5.5 1.5-8.1 #) [facility] [id number] 06:41:00 Test Item Value Reference Range Interpretation Comments Lymphocytes # (test code = Lymphocytes 2.6 1.0-5.5 #) [facility] [id number] 06:41:00 Test Item Value Reference Range Interpretation Comments Monocytes # (test code 0.9 See_Comment [Aut omated message] The = Monocytes #) system which generated this result tra nsmitted reference range : <=0.8. The reference r bri was not used to int erpret this result as normal/abnormal . [facility] H[id number] 06:41:00 Test Item Value Reference Range Interpretation Comments Eosinophils # (test code 0.1 See_Comment [A utomated message] The = Eosinophils #) system whic h generated this result tra nsmitted reference range : <=0.5. The reference r bri was not used to int erpret this result as normal/abnormal . [facility] HospitalB[id number] 06:41:00 Test Item Value Reference Range Interpretation Comments Basophils # (test code 0.1 See_Comment [Aut omated message] The = Basophils #) system which generated this result tra nsmitted reference range : <=0.2. The reference r bri was not used to int erpret this result as normal/abnormal . [facility]GtiduudBXLTMDVWZH8314-73-93 06:41:00 Test Item Value Reference Range Interpretation Comments WBC (test code = WBC) 9.1 3.7-10.4 [facility]AgaffxhQCZLNDFOUF7068-24-12 06:41:00 Test Item Value Reference Range Interpretation Comments RBC (test code = RBC) 2.72 4.20-5.40 [facility]Dxz[facility]fJMQORAVRFJ0453-87-74 06:41:00 Test Item Value Reference Range Interpretation Comments Hgb (test code = Hgb) 8.5 12.0-16.0 [facility] [facility]459[facility]59[facility]12 06:41:00 Test Item Value Reference Range Interpretation Comments Hct (test code = Hct) 24.9 36.0-48.0 [facility] HospitalByauiewBOQSTHOUWC7301-45-35 06:41:00 Test Item Value Reference Range Interpretation Comments MCV (test code = MCV) 91.4 80.0-98.0 [facility]Bgq[facility]orWSDOAABSQJ3905-56-82 06:41:00 Test Item Value Reference Range Interpretation Comments MCH (test code = MCH) 31.3 pg 27.0-31.0 [facility] HospitalQghcbxuEGQGBTPMPP8870-98-86 06:41:00 Test Item Value Reference Range Interpretation Comments MCHC (test code = MCHC) 34.3 32.0-36.0 [facility] HospitalIwplybdTANOBOROSQ4463-21-68 06:41:00 Test Item Value Reference Range Interpretation Comments RDW (test code = RDW) 15.2 11.5-14.5 [facility] HospitalPswhrikANPQOEUUUO4444-79-02 06:41:00 Test Item Value Reference Range Interpretation Comments Platelet (test code = Platelet) 144 133-450 [facility] HospitalEjtbfrmTFSMMWNMMB7826-33-17 06:41:00 Test Item Value Reference Range Interpretation Comments MPV (test code = MPV) 9.5 7.4-10.4 [facility] AND [id number] 06:41:00 Test Item Value Reference Range Interpretation Comments UA Color (test code = Light Yellow UA Color) *NA*(01/19/20 1:41 AM) [facility] AND [id number] 06:41:00 Test Item Value Reference Range Interpretation Comments UA Turbidity (test code = Clear (01/19/20 1:41 UA Turbidity) AM) [facility] AND [id number] 06:41:00 Test Item Value Reference Range Interpretation Comments UA Spec Grav (test code = UA Spec 1.001 1 Grav) [facility] AND [id number] 06:41:00 Test Item Value Reference Range Interpretation Comments UA pH (test code = UA pH) 6.0 1 5.0-8.0 [facility] AND [id number] 06:41:00 Test Item Value Reference Range Interpretation Comments UA Protein (test code = UA Negative mg/dL Protein) [facility] AND [id number] 06:41:00 Test Item Value Reference Range Interpretation Comments UA Glucose (test code = UA Glucose) 500 mg/dL [facility] AND [id number] 06:41:00 Test Item Value Reference Range Interpretation Comments UA Ketones (test code = UA Negative mg/dL Ketones) [facility] AND [id number] 06:41:00 Test Item Value Reference Range Interpretation Comments UA Bili (test code = Negative *NA*(01/19/20 UA Bili) 1:41 AM) [facility] AND [id number] 06:41:00 Test Item Value Reference Range Interpretation Comments UA Blood (test code = Negative (01/19/20 1:41 UA Blood) AM) [facility] AND [id number] 06:41:00 Test Item Value Reference Range Interpretation Comments UA Urobilinogen (test code = UA no gt 0.1-1.0 Urobilinogen) [facility] AND [id number] 06:41:00 Test Item Value Reference Range Interpretation Comments UA Nitrite (test code Negative (01/19/20 1:41 = UA Nitrite) AM) [facility] AND [id number] 06:41:00 Test Item Value Reference Range Interpretation Comments UA Leuk Est (test Negative (01/19/20 1:41 code = UA Leuk Est) AM) [facility] AND [id number] 06:41:00 Test Item Value Reference Range Interpretation Comments UA WBC (test code = 1 See_Comment [Automa gianluca message] The UA WBC) system which ge nerated this result transmit gianluca reference range : <=5. The reference range was not used to interpr et this result as shankar l/abnormal. [facility] AND [id number] 06:41:00 Test Item Value Reference Range Interpretation Comments UA Mucus (test code = UA Mucus) Few /LPF [facility] AND [id number] 06:41:00 Test Item Value Reference Range Interpretation Comments UA Sq Epi (test code = UA Sq Epi) None Seen [facility] HospitalXeivyljZUMKPDYMRE0076-93-07 21:10:00 Test Item Value Reference Range Interpretation Comments Hgb (test code = Hgb) 8.4 12.0-16.0 [facility] HospitalEqpwgeqZJKRYKGDVY7574-84-74 21:10:00 Test Item Value Reference Range Interpretation Comments Hct (test code = Hct) 24.9 36.0-48.0 [facility] HospitalNmypagbIANDSHWPKL0082-99-72 08:42:00 Test Item Value Reference Range Interpretation Comments WBC (test code = WBC) 14.9 3.7-10.4 [facility] HospitalGlhviffLKQAUQVTWT6876-13-11 08:42:00 Test Item Value Reference Range Interpretation Comments RBC (test code = RBC) 3.21 4.20-5.40 [facility] HospitalLijpvoaBIDCLPSUJO1523-02-81 08:42:00 Test Item Value Reference Range Interpretation Comments Hgb (test code = Hgb) 9.6 12.0-16.0 [facility] HospitalXokmajbNNCEYELYMC1596-57-15 08:42:00 Test Item Value Reference Range Interpretation Comments Hct (test code = Hct) 29.1 36.0-48.0 [facility] HospitalTjhvoulUQXEVQSNSD6259-59-82 08:42:00 Test Item Value Reference Range Interpretation Comments MCV (test code = MCV) 90.7 80.0-98.0 [facility] HospitalXsqjzsoRDKGGDOSRR6334-84-49 08:42:00 Test Item Value Reference Range Interpretation Comments MCH (test code = MCH) 30.0 pg 27.0-31.0 [facility] HospitalFijbbozGALAUMCSPI0664-98-61 08:42:00 Test Item Value Reference Range Interpretation Comments MCHC (test code = MCHC) 33.0 32.0-36.0 [facility] HospitalYgompwkJAXOYELAQA7772-64-61 08:42:00 Test Item Value Reference Range Interpretation Comments RDW (test code = RDW) 15.7 11.5-14.5 [place] 141360-07-22 08:42:00 Test Item Value Reference Range Interpretation Comments Platelet (test code = Platelet) 182 133-450 [place] 141360-07-22 08:42:00 Test Item Value Reference Range Interpretation Comments MPV (test code = MPV) 10.4 7.4-10.4 [place] 141360-07-22 08:42:00 Test Item Value Reference Range Interpretation Comments Segs (test code = Segs) 66.7 45.0-75.0 [place] 141360-07-22 08:42:00 Test Item Value Reference Range Interpretation Comments Lymphocytes (test code = Lymphocytes) 23.3 20.0-40.0 [place] 141360-07-22 08:42:00 Test Item Value Reference Range Interpretation Comments Monocytes (test code = Monocytes) 9.3 2.0-12.0 [place] 141360-07-22 08:42:00 Test Item Value Reference Range Interpretation Comments Eosinophils (test code = 0.3 See_Comment [A utomated message] The Eosinophils) system which ge nerated this result tra nsmitted reference range : <=4.0. The reference r bri was not used to int erpret this result as normal/abnormal . [place] 141360-07-22 08:42:00 Test Item Value Reference Range Interpretation Comments Basophils (test code = 0.4 See_Comment [Aut omated message] The Basophils) system which ge nerated this result tra nsmitted reference range : <=1.0. The reference r bri was not used to int erpret this result as normal/abnormal . [facility] HospitalFkkgwgaAELUHCQHXV7209-26-03 08:42:00 Test Item Value Reference Range Interpretation Comments Neutrophils # (test code = Neutrophils 9.9 1.5-8.1 #) [place] 141360-07-22 08:42:00 Test Item Value Reference Range Interpretation Comments Lymphocytes # (test code = Lymphocytes 3.5 1.0-5.5 #) [place] 141360-07-22 08:42:00 Test Item Value Reference Range Interpretation Comments Monocytes # (test code 1.4 See_Comment [Aut omated message] The = Monocytes #) system which generated this result tra nsmitted reference range : <=0.8. The reference r bri was not used to int erpret this result as normal/abnormal . [facility]TfopkqhAUEWLCVPYO8354-47-05 08:42:00 Test Item Value Reference Range Interpretation Comments Basophils # (test code 0.1 See_Comment [Aut omated message] The = Basophils #) system which generated this result tra nsmitted reference range : <=0.2. The reference r bri was not used to int erpret this result as normal/abnormal . [facility] LufkinTeachbaseCARDIAC RRPFYRK7566-35-52 08:00:00 Test Item Value Reference Range Interpretation Comments Troponin-I (test code no gt See_Comment [Auto mated message] The = Troponin-I) system which g enerated this result transmit gianluca reference range : <=0.40. The reference r bri was not used to interpr et this result as shankar l/abnormal. [facility] [employer] [id number] 08:00:00 Test Item Value Reference Range Interpretation Comments Glucose Lvl (test code = Glucose Lvl) 251 70-99 [facility] [employer]2020-07-22 08:00:00 Test Item Value Reference Range Interpretation Comments BUN (test code = BUN) 22 7-22 [facility] [employer] [id number] 08:00:00 Test Item Value Reference Range Interpretation Comments Creatinine Lvl (test code = Creatinine 1.04 0.50-1.40 Lvl) [facility] [employer] [id number] 08:00:00 Test Item Value Reference Range Interpretation Comments Sodium Lvl (test code = Sodium Lvl) 138 135-145 [facility] [employer] [id number] 08:00:00 Test Item Value Reference Range Interpretation Comments Potassium Lvl (test code = Potassium 4.1 3.5-5.1 Lvl) [facility] [employer] [id number] 08:00:00 Test Item Value Reference Range Interpretation Comments Chloride Lvl (test code = Chloride Lvl) 108 95-109 [facility] [employer] [id number] 08:00:00 Test Item Value Reference Range Interpretation Comments CO2 (test code = CO2) 22 24-32 [facility] [employer]2020-07-22 08:00:00 Test Item Value Reference Range Interpretation Comments Calcium Lvl (test code = Calcium Lvl) 8.2 8.5-10.5 [facility] [employer] [id number] 08:00:00 Test Item Value Reference Range Interpretation Comments AGAP (test code = AGAP) 12.1 10.0-20.0 [facility] [employer] [id number] 08:00:00 Test Item Value Reference Range Interpretation Comments eGFR (test code = eGFR) 54 [facility] [employer] [id number] 08:00:00 Test Item Value Reference Range Interpretation Comments Magnesium Lvl (test code = Magnesium 1.9 1.8-2.4 Lvl) [facility] AvmlurcAWVFQAEWIV2519-99-49 02:00:00 Test Item Value Reference Range Interpretation Comments Coronavirus (COVID-19) Not Detected (01/17/20 NICHO (test code = 9:00 PM) Coronavirus (COVID-19) NICHO) [facility] [employer] [id number] 22:13:00 Test Item Value Reference Range Interpretation Comments ABO/Rh (test code = ABO/Rh) O POS [facility] [employer] [id number] 22:13:00 Test Item Value Reference Range Interpretation Comments Antibody Scrn (test Negative (01/17/20 5:13 code = Antibody Scrn) PM) [facility] [employer] [id number] 22:13:00 Test Item Value Reference Range Interpretation Comments Glucose Lvl (test code = Glucose Lvl) 220 70-99 [facility] [employer]2020-07-21 22:13:00 Test Item Value Reference Range Interpretation Comments BUN (test code = BUN) 25 -22 [employer] [id number] 22:13:00 Test Item Value Reference Range Interpretation Comments Creatinine Lvl (test code = Creatinine 1.14 0.50-1.40 Lvl) [employer]2020-07-21 22:13:00 Test Item Value Reference Range Interpretation Comments Sodium Lvl (test code = Sodium Lvl) 141 135-145 [facility] [employer] [id number] 22:13:00 Test Item Value Reference Range Interpretation Comments Potassium Lvl (test code = Potassium 4.5 3.5-5.1 Lvl) [place] 819590-07-21 22:13:00 Test Item Value Reference Range Interpretation Comments Chloride Lvl (test code = Chloride Lvl) 107 95-109 [place] 819590-07-21 22:13:00 Test Item Value Reference Range Interpretation Comments CO2 (test code = CO2) 23 24-32 [place] 819590-07-21 22:13:00 Test Item Value Reference Range Interpretation Comments Calcium Lvl (test code = Calcium Lvl) 8.4 8.5-10.5 [place] 819590-07-21 22:13:00 Test Item Value Reference Range Interpretation Comments AGAP (test code = AGAP) 15.5 10.0-20.0 [place] [address]-07-21 22:13:00 Test Item Value Reference Range Interpretation Comments B/C Ratio (test code = B/C Ratio) 22 1 6-25 [place] [address]-07-21 22:13:00 Test Item Value Reference Range Interpretation Comments eGFR (test code = eGFR) 48 [place] 819590-07-21 22:13:00 Test Item Value Reference Range Interpretation Comments ALT (test code = ALT) 20 See_Comment [Auto mated message] The system which ge nerated this result transmit gianluca reference range : <=65. The reference range was not used to interpr et this result as shankar l/abnormal. [place] 819590-07-21 22:13:00 Test Item Value Reference Range Interpretation Comments Albumin Lvl (test code = Albumin Lvl) 3.5 3.5-5.0 [place] 819590-07-21 22:13:00 Test Item Value Reference Range Interpretation Comments Alk Phos (test code = Alk Phos) 56 39-136 [place] [address]-07-21 22:13:00 Test Item Value Reference Range Interpretation Comments Bili Total (test code = Bili Total) 0.6 0.2-1.3 [place] 819590-07-21 22:13:00 Test Item Value Reference Range Interpretation Comments Total Protein (test code = Total 6.5 6.4-8.4 Protein) [place] 819590-07-21 22:13:00 Test Item Value Reference Range Interpretation Comments AST (test code = AST) 18 See_Comment [Auto mated message] The system which ge nerated this result transmit gianluca reference range : <=37. The reference range was not used to interpr et this result as shankar l/abnormal. [facility] [id number] 22:13:00 Test Item Value Reference Range Interpretation Comments Globulin (test code = Globulin) 3.0 2.7-4.2 [facility] [id number] 22:13:00 Test Item Value Reference Range Interpretation Comments A/G Ratio (test code = A/G Ratio) 1.2 1 0.7-1.6 [facility] CenterYumqurmVROXXKZWIM0113-57-63 22:13:00 Test Item Value Reference Range Interpretation Comments WBC (test code = WBC) 11.6 3.7-10.4 [facility] HospitalIcigcwoXFOHHOLMCB1959-34-35 22:13:00 Test Item Value Reference Range Interpretation Comments RBC (test code = RBC) 3.92 4.20-5.40 [facility]NbjzpmaVNIENJBWOL4861-47-29 22:13:00 Test Item Value Reference Range Interpretation Comments MCV (test code = MCV) 90.4 80.0-98.0 [facility] CenterSdrwmcmLHIXTRGHWH3272-59-73 22:13:00 Test Item Value Reference Range Interpretation Comments MCH (test code = MCH) 31.0 pg 27.0-31.0 [facility] HospitalThvtsauVAHCRTJYOR0791-81-68 22:13:00 Test Item Value Reference Range Interpretation Comments MCHC (test code = MCHC) 34.3 32.0-36.0 [facility] CenterGwrylhxNWBUHVVDZF0257-19-91 22:13:00 Test Item Value Reference Range Interpretation Comments RDW (test code = RDW) 15.4 11.5-14.5 [facility] HospitalIaocsvqISBXAGOIVO7880-41-52 22:13:00 Test Item Value Reference Range Interpretation Comments Platelet (test code = Platelet) 184 133-450 [facility] HospitalRgndktzAUMBVFAWSC5875-63-62 22:13:00 Test Item Value Reference Range Interpretation Comments MPV (test code = MPV) 10.1 7.4-10.4 [facility] HospitalUgmmgwnPKPPNLWWDB8159-74-26 22:13:00 Test Item Value Reference Range Interpretation Comments PT (test code = PT) 14.2 s 12.0-14.7 [facility] HospitalXnlxtyxKDNBQJPRDP7782-36-81 22:13:00 Test Item Value Reference Range Interpretation Comments INR (test code = INR) 1.10 1 0.85-1.17 [facility] HospitalRrlwepsZESQVJMPQF8614-74-35 22:13:00 Test Item Value Reference Range Interpretation Comments PTT (test code = PTT) 25.9 s 22.9-35.8 [facility] HospitalTeoajebXYJVITXQMS8217-52-92 22:13:00 Test Item Value Reference Range Interpretation Comments Segs (test code = Segs) 77.7 45.0-75.0 [facility] HospitalRiepdheQOIMIYWSHU0927-98-89 22:13:00 Test Item Value Reference Range Interpretation Comments Lymphocytes (test code = Lymphocytes) 15.0 20.0-40.0 [facility] HospitalFwejaojJHIKEVYPJR7437-89-80 22:13:00 Test Item Value Reference Range Interpretation Comments Monocytes (test code = Monocytes) 7.0 2.0-12.0 [facility] HospitalLjvqyqbVINFBCWXVT5059-76-12 22:13:00 Test Item Value Reference Range Interpretation Comments Basophils (test code = 0.3 See_Comment [Aut omated message] The Basophils) system which ge nerated this result tra nsmitted reference range : <=1.0. The reference r bri was not used to int erpret this result as normal/abnormal . [facility] HospitalXgrxxcjCSEJGAHCEH3447-92-69 22:13:00 Test Item Value Reference Range Interpretation Comments Neutrophils # (test code = Neutrophils 9.0 1.5-8.1 #) [facility] HospitalPwwakpkAGYLYHCUKN8471-87-58 22:13:00 Test Item Value Reference Range Interpretation Comments Lymphocytes # (test code = Lymphocytes 1.7 1.0-5.5 #) [facility] HospitalInmjptvOQCNWANFRO0002-71-93 22:13:00 Test Item Value Reference Range Interpretation Comments Monocytes # (test code 0.8 See_Comment [Aut omated message] The = Monocytes #) system which generated this result tra nsmitted reference range : <=0.8. The reference r bri was not used to int erpret this result as normal/abnormal . [facility]DnrxrquLLVUMYWPST0548-50-01 12:48:00 Test Item Value Reference Range Interpretation Comments Blood Glucose, Capillary (test code = 124 74-106 Blood Glucose, Capillary) [facility] HospitalFwzaqhxBJPTPSLPWO0673-69-71 10:20:35 Test Item Value Reference Range Interpretation Comments Lymphocytes (test code = Lymphocytes) 23.4 20.0-40.0 [facility] HospitalNgsrpdxGDJYKBFMHP1260-19-94 10:20:35 Test Item Value Reference Range Interpretation Comments Eosinophils (test code = 2.0 See_Comment [A utomated message] The Eosinophils) system which ge nerated this result tra nsmitted reference range : <=4.0. The reference r bri was not used to int erpret this result as normal/abnormal . [facility] HospitalBuhxkgbZWMMTNLAGJ0395-14-83 10:20:35 Test Item Value Reference Range Interpretation Comments Segs (test code = Segs) 57.6 45.0-75.0 [facility] HospitalKqpfaiwJVHEUKWLHW1004-32-98 10:20:35 Test Item Value Reference Range Interpretation Comments Monocytes (test code = Monocytes) 16.3 2.0-12.0 [facility] HospitalBkmourjNSNEASOWHP5088-87-70 10:20:35 Test Item Value Reference Range Interpretation Comments RBC Morph (test code = Normal (01/14/14 5:20 RBC Morph) AM) [facility] HospitalPbjviffGBIYGCSPMR0854-13-09 10:20:35 Test Item Value Reference Range Interpretation Comments Basophils (test code = 0.7 See_Comment [Aut omated message] The Basophils) system which ge nerated this result tra nsmitted reference range : <=1.0. The reference r bri was not used to int erpret this result as normal/abnormal . [facility] HospitalWbgbbarKJCWUPEJEI4245-07-48 10:20:35 Test Item Value Reference Range Interpretation Comments Large Plt (test code = Slight *ABN*(01/14/14 Large Plt) 5:20 AM) [facility] HospitalJelxplrZMRQKYSMTX6900-85-27 10:20:35 Test Item Value Reference Range Interpretation Comments Eosinophils # (test code 0.1 See_Comment [A utomated message] The = Eosinophils #) system whic h generated this result tra nsmitted reference range : <=0.5. The reference r bri was not used to int erpret this result as normal/abnormal . [facility] HospitalZacflfcAYBNHIDZSZ6626-67-29 10:20:35 Test Item Value Reference Range Interpretation Comments Segs-Bands # (test code = Segs-Bands #) 3.5 1.5-8.1 [facility] HospitalXxuxffqWSTDENIIMB7412-93-79 10:20:35 Test Item Value Reference Range Interpretation Comments Lymphocytes # (test code = Lymphocytes 1.4 1.0-5.5 #) [facility] HospitalIvghvqkDCZNBYONVE5709-84-44 10:20:35 Test Item Value Reference Range Interpretation Comments Monocytes # (test code 1.0 See_Comment [Aut omated message] The = Monocytes #) system which generated this result tra nsmitted reference range : <=0.8. The reference r bri was not used to int erpret this result as normal/abnormal . [facility] HospitalWffkphtMLYLNRHKCR4899-57-22 10:20:35 Test Item Value Reference Range Interpretation Comments Hgb (test code = Hgb) 11.5 12.0-16.0 [facility] HospitalZfljaycXOQSOIPTJO2912-43-14 10:20:35 Test Item Value Reference Range Interpretation Comments MCHC (test code = MCHC) 33.5 32.0-36.0 [facility] HospitalXuugkqxQJGORKSNVH5118-69-47 10:20:35 Test Item Value Reference Range Interpretation Comments MCH (test code = MCH) 30.4 pg 27.0-31.0 [facility] HospitalCbcxwuzSSHCZXINXJ7590-70-76 10:20:35 Test Item Value Reference Range Interpretation Comments MCV (test code = MCV) 90.7 81.0-99.0 [facility] HospitalQocwbgfMJHZNYAAYG4431-68-81 10:20:35 Test Item Value Reference Range Interpretation Comments Hct (test code = Hct) 34.3 36.0-48.0 [facility] HospitalMzajlzeJDUKXHAWNA0504-84-13 10:20:35 Test Item Value Reference Range Interpretation Comments RDW (test code = RDW) 13.9 11.5-14.5 [facility] HospitalYudcienVNEWBVSVGT3296-44-74 10:20:35 Test Item Value Reference Range Interpretation Comments Platelet (test code = Platelet) 140 133-450 [facility] HospitalBxjoznvNXRCQTDCCH5650-29-54 10:20:35 Test Item Value Reference Range Interpretation Comments MPV (test code = MPV) 10.6 7.4-10.4 [facility] HospitalCstgnqhXGISMKRXUB2364-92-37 10:20:35 Test Item Value Reference Range Interpretation Comments WBC (test code = WBC) 6.1 3.7-10.4 [facility] HospitalXfxmtgcWHWWZDVECX3063-04-68 10:20:35 Test Item Value Reference Range Interpretation Comments RBC (test code = RBC) 3.78 4.20-5.40 [facility]2014-07-19 01:05:33 Test Item Value Reference Range Interpretation Comments Globulin (test code = Globulin) 2.7 2.0-4.0 [facility]2014-07-19 01:05:33 Test Item Value Reference Range Interpretation Comments A/G Ratio (test code = A/G Ratio) 1.3 0.7-1.6 [facility]2014-07-19 01:05:33 Test Item Value Reference Range Interpretation Comments B/C Ratio (test code = B/C Ratio) 19 6-25 [facility]2014-07-19 01:05:33 Test Item Value Reference Range Interpretation Comments AGAP (test code = AGAP) 11.6 10.0-20.0 [place] 431074-07-19 01:05:33 Test Item Value Reference Range Interpretation Comments Bili Total (test code = Bili Total) 0.5 0.2-1.3 [facility]2014-07-19 01:05:33 Test Item Value Reference Range Interpretation Comments Total Protein (test code = Total 6.2 6.4-8.4 Protein) [facility]2014-07-19 01:05:33 Test Item Value Reference Range Interpretation Comments Albumin Lvl (test code = Albumin Lvl) 3.5 3.5-5.0 [facility]2014-07-19 01:05:33 Test Item Value Reference Range Interpretation Comments Alk Phos (test code = Alk Phos) 73 39-136 [facility]2014-07-19 01:05:33 Test Item Value Reference Range Interpretation Comments ALT (test code = ALT) 42 See_Comment [Auto mated message] The system which ge nerated this result transmit gianluca reference range : <=65. The reference range was not used to interpr et this result as shankar l/abnormal. [facility]2014-07-19 01:05:33 Test Item Value Reference Range Interpretation Comments AST (test code = AST) 56 See_Comment [Auto mated message] The system which ge nerated this result transmit gianluca reference range : <=37. The reference range was not used to interpr et this result as shankar l/abnormal. [facility]2014-07-19 01:05:33 Test Item Value Reference Range Interpretation Comments eGFR (test code = eGFR) 78 [facility]2014-07-19 01:05:33 Test Item Value Reference Range Interpretation Comments Sodium Lvl (test code = Sodium Lvl) 137 135-145 [place] 431074-07-19 01:05:33 Test Item Value Reference Range Interpretation Comments Potassium Lvl (test code = Potassium 4.6 3.5-5.1 Lvl) [place] [id number] 01:05:33 Test Item Value Reference Range Interpretation Comments BUN (test code = BUN) 15 7-22 [place] [id number] 01:05:33 Test Item Value Reference Range Interpretation Comments Creatinine Lvl (test code = Creatinine 0.8 0.5-1.4 Lvl) [place] [id number] 01:05:33 Test Item Value Reference Range Interpretation Comments Glucose Lvl (test code = Glucose Lvl) 258 70-99 [place] [id number] 01:05:33 Test Item Value Reference Range Interpretation Comments Chloride Lvl (test code = Chloride Lvl) 102 95-109 [facility]2014-07-19 01:05:33 Test Item Value Reference Range Interpretation Comments CO2 (test code = CO2) 28 24-32 [facility]2014-07-19 01:05:33 Test Item Value Reference Range Interpretation Comments Calcium Lvl (test code = Calcium Lvl) 8.6 8.5-10.5 [place] [id number] 01:05:33 Test Item Value Reference Range Interpretation Comments Split Point (test code = Split Point) 0.6 min [facility]XDWZMDEHUF1070-78-99 01:05:33 Test Item Value Reference Range Interpretation Comments Angle (test code = Angle) 77 degrees 64-80 [place] [id number] 01:05:33 Test Item Value Reference Range Interpretation Comments K-time (test code = K-time) 1.1 min 0.6-2.3 [place] 979024-07-19 01:05:33 Test Item Value Reference Range Interpretation Comments R-time (test code = R-time) 0.7 min 0.4-0.7 [facility]TjkvkkdBJJGXADUGE0108-77-47 01:05:33 Test Item Value Reference Range Interpretation Comments ACT (TEG) (test code = ACT (TEG)) 113 s 86-118 [facility]DpkwhimMOLMJXLQJI9170-04-07 01:05:33 Test Item Value Reference Range Interpretation Comments G-value (test code = G-value) 11.4 5.0-11.6 [facility] HospitalNkjlkxvWBSYYWEIQM3527-48-98 01:05:33 Test Item Value Reference Range Interpretation Comments Max Amp (test code = Max Amp) 70 mm 52-71 [facility] HospitalQzvyldrWRXBTIKSDU5552-57-86 01:05:33 Test Item Value Reference Range Interpretation Comments Rapid TEG Sample Type Citrated Whole Blood (test code = Rapid TEG Sample Type) [facility] HospitalWtxydsrHQPBYUMGHO8829-90-17 01:05:33 Test Item Value Reference Range Interpretation Comments Estimated % Lysis (test 1.7 See_Comment [Au tomated message] The code = Estimated % system wh ich generated Lysis) this result tra nsmitted reference range : <=7.5. The reference r bri was not used to int erpret this result as normal/abnormal . [facility]2014-07-19 01:05:24 Test Item Value Reference Range Interpretation Comments Lactic Acid Lvl (test code = Lactic 1.5 0.5-2.2 Acid Lvl) [facility] HospitalSypvbqsZMQPDVQARO3846-07-45 01:05:24 Test Item Value Reference Range Interpretation Comments Platelet (test code = Platelet) 153 133-450 [facility] HospitalHhkunvmBYAUFOXBYL8750-86-81 01:05:24 Test Item Value Reference Range Interpretation Comments MPV (test code = MPV) 10.2 7.4-10.4 [facility] HospitalSugujysHTOYUBJXSC7161-17-47 01:05:24 Test Item Value Reference Range Interpretation Comments RDW (test code = RDW) 13.3 11.5-14.5 [facility] HospitalKgrnylnRFEJKTBJYP3435-14-59 01:05:24 Test Item Value Reference Range Interpretation Comments MCHC (test code = MCHC) 34.5 32.0-36.0 [facility] HospitalDgepfgqQNHHIJZBZV0424-02-93 01:05:24 Test Item Value Reference Range Interpretation Comments MCV (test code = MCV) 89.2 81.0-99.0 [facility] HospitalDucsnbfWXGBQTKNRF6899-50-21 01:05:24 Test Item Value Reference Range Interpretation Comments MCH (test code = MCH) 30.7 pg 27.0-31.0 [facility] HospitalUoqmtbzVKLURXNAOK8135-37-10 01:05:24 Test Item Value Reference Range Interpretation Comments WBC (test code = WBC) 9.4 3.7-10.4 [facility] HospitalGhumuauKJOCXQCPZD5233-27-44 01:05:24 Test Item Value Reference Range Interpretation Comments Hct (test code = Hct) 34.2 36.0-48.0 [facility] HospitalRsmbmbqSMUYQYBCVS8549-92-47 01:05:24 Test Item Value Reference Range Interpretation Comments Hgb (test code = Hgb) 11.8 12.0-16.0 [facility] HospitalVpeubntTNGNYCGRRA6191-14-83 01:05:24 Test Item Value Reference Range Interpretation Comments RBC (test code = RBC) 3.84 4.20-5.40 [facility] HospitalScjcaodYFMQIMSSZE9603-96-57 01:05:24 Test Item Value Reference Range Interpretation Comments Anisocyte (test code = 1+ *ABN*(01/13/14 Anisocyte) 8:05 PM) [facility] HospitalKlzyshlROEBDVJKDC4245-30-05 01:05:24 Test Item Value Reference Range Interpretation Comments Segs-Bands # (test code = Segs-Bands #) 7.5 1.5-8.1 [facility] HospitalFhelozjJIQHPDAFRG4394-88-13 01:05:24 Test Item Value Reference Range Interpretation Comments Plt Morph (test code = Normal (01/13/14 8:05 Plt Morph) PM) [facility] HospitalVxetyzoAOSJTYTMIW8095-75-81 01:05:24 Test Item Value Reference Range Interpretation Comments Segs (test code = Segs) 80.3 45.0-75.0 [facility] HospitalLbtgdylFOUJBIJKSG9565-09-98 01:05:24 Test Item Value Reference Range Interpretation Comments Lymphocytes (test code = Lymphocytes) 12.5 20.0-40.0 [facility] HospitalNplyvxdTMYHDZKPRX3556-92-05 01:05:24 Test Item Value Reference Range Interpretation Comments Basophils (test code = 0.2 See_Comment [Aut omated message] The Basophils) system which ge nerated this result tra nsmitted reference range : <=1.0. The reference r bri was not used to int erpret this result as normal/abnormal . [facility] HospitalEllutjuSLCUEZFGUH6100-31-80 01:05:24 Test Item Value Reference Range Interpretation Comments Eosinophils (test code = 2.2 See_Comment [A utomated message] The Eosinophils) system which ge nerated this result tra nsmitted reference range : <=4.0. The reference r bri was not used to int erpret this result as normal/abnormal . [facility] HospitalQwypkctALVPYTLSFD6143-72-14 01:05:24 Test Item Value Reference Range Interpretation Comments Monocytes (test code = Monocytes) 4.8 2.0-12.0 [facility] HospitalChtzlldZRVSZYCEMR4538-37-91 01:05:24 Test Item Value Reference Range Interpretation Comments Lymphocytes # (test code = Lymphocytes 1.2 1.0-5.5 #) [facility] HospitalTchpmpaIGXKKNKWAT5795-51-96 01:05:24 Test Item Value Reference Range Interpretation Comments Monocytes # (test code 0.5 See_Comment [Aut omated message] The = Monocytes #) system which generated this result tra nsmitted reference range : <=0.8. The reference r bri was not used to int erpret this result as normal/abnormal . [facility] HospitalMvdolkqOHQKBULAKZ7586-09-21 01:05:24 Test Item Value Reference Range Interpretation Comments Basophils # (test code 0.0 See_Comment [Aut omated message] The = Basophils #) system which generated this result tra nsmitted reference range : <=0.2. The reference r bri was not used to int erpret this result as normal/abnormal . [facility] HospitalSpjuoxkSEMXNSIDNX1548-25-00 01:05:24 Test Item Value Reference Range Interpretation Comments Eosinophils # (test code 0.2 See_Comment [A utomated message] The = Eosinophils #) system whic h generated this result tra nsmitted reference range : <=0.5. The reference r bri was not used to int erpret this result as normal/abnormal . Benny Sutton Notes Date/Time Note Provider Source 2020-05-21 [id number] [facility] 08:53:00-00:[address] [place] [id number] PATIENT NAME: IRVING REHMAN ADMIT DATE: 05/20/20 ACCOUNT NO: [id number] ROOM NO: ANTONIOUR AGE: 69 REPORT TYPE: CONSULTATION REPORT SEX: F ADMITTING PHYSICIAN:Kenyon Castro MD ATTENDING PHYSICIAN:Kenyon Castro MD CONSULTATION DATE: 05/21/2020 CONSULTING PHYSICIAN: Rahat Lake MD REASON FOR CONSULTATION: Distal radius fracture. HISTORY OF PRESENT ILLNESS: This is a 69-year-ol d female, who was reportedly transferred here from an out side hospital for a fall and distal radius fracture. She was admitted to the trauma service. I was c onsulted for assistance in management. She was reportedly in the attic when she tripped and fell. She also has a recent positive COVID test 2 weeks ago when her was ill and she was asymptomatic. Otherwise, she has been in her usual state of health. She has been placed in a splint. PAST MEDICAL HISTORY: Positi ve for atrial fibrillation, diabetes, hypertension, dyslipidemia, hypothyroidism, pseudochol inesterase deficiency, diverticulitis, glaucoma. FAMILY HISTORY: Noncontributory. SOCIAL HISTORY: No alcohol use. No drug abuse. N o smoking. . MEDICATIONS: Please see MAR. ALLERGIES: SUCCINYLCHOLINE, PENICILLIN, AND IODI NE. REVIEW OF SYSTEMS: Twelve-point review of system s is negative with the exception of items mentioned in the HPI. PHYSICAL EXAMINATION: GENERAL: Alert and cooperative female, in no acu te distress. HEENT: Extraocular movements are intact. NECK: Supple. CHEST: She takes equal and unlabored respiration s bilaterally. ABDOMEN: Soft and nontender. EXTREMITIES: The right distal radius is immobilized in a splint. She has brisk cap refill to fingertips and intact sens ation to light touch. Compartments are soft. There is some mild swelling. IMAGING: Multiple x-rays of the wrist are review ed. They show an impacted and minimally displaced fracture of the distal radiu s. LABORATORY DATA: Hemoglobin is 10.8, white count 8.6, and platelets 184. PATIENT NAME: JESUSNOVEMBER 0 Chemistry is normal. Coagulation studies are nor mal. ASSESSMENT: Mildly displaced distal radius fract ure. PLAN: I discussed with the ER about converting h er to a better splint. She is in a plastic ER style splint. She will b e discharged home and follow up in the office as needed. This should be treated nonsurg ically and followed closely, likely placed in a cast in a week or so. Dictated By: Rahat Lake MD WT: CON:ADAM/JHBR/NTS Conf#: [id number]/DID#: [id number] Authenticated by Rahat Lake MD On 05/23/2020 04:52:02 PM Electronically Signed by Rahat Lake MD on at 1652 PATIENT NAME: IRVING REHMAN 0 2020-05-21 [facility] 06:32:00-00:00 [facility] ([facility]) Discharge Summary REPORT#:[id number] REPORT STATUS: Signed DATE:05/21/20 TIME: 0632 PATIENT: IRVING REHMAN UNIT #: [id number] ROOM/BED: [place] [address] : 48 AGE: 69 SEX: F ATTEND: Kenyon Castro MD ADM AUTHOR: Kenyon Castro MD * ALL edits or amendments must be made on the [employer]/computer document * General Information Date of admission: Observation Start Date: Date of admission: 05/20/20 Discharge date: 05/21/20 Admission diagnosis: DISTAL RIGHT RADIUS AND ULNA FRACTURE Discharge diagnosis: SAME Hospital course: Patient was transferred here. Right arm was spli nted. Patient was admitted, deemed nonoperative by orthopedic surgery. Disch arged to home. Consultants: orthopedics Pt. condition on discharge: improved Allergies: Allergies: succinylcholine (Coded, Severe, FLAT LINE, 05/20) Penicillins (Coded, Intermediate, THROAT ITCHES, 05/20/20) iodine (Coded, Intermediate, THROAT ITCHES, 04/30 08/18) Med Rec PCP PCP: PCP: No Primary or Family Physician Med Rec Discharge meds: Start taking the following new medications: HYDROcodone/APAP (NORCO 7.5/325) 7.5 MG-325 MG T AB 1 TABLET ORAL EVERY 6 HOURS NEEDED. as neede d for PAIN SCALE 7-10 Qty = 28 No Refills Objective VS/I O Last Documented: Result Date Time Pulse Ox 99 05/21 524 B/P 164/74 05/21 524 B/P Mean 104 05/21 524 Pulse 69 05/21 524 Resp 18 05/21 524 O2 Delivery Room air 05/20 2153 Temp 99.1 05/20 2153 24 hour I O ending at 0700: 05/21 0700 05/20 1900 Intake Total Output Total Balance Patient 77.273 kg Weight Weight Bed scale Measurement Method Patient Weight Weight (lb): Weight (oz): Weight (kg): 77.273 Discharge Instructions PCP PCP: PCP: No Primary or Family Physician )( Discharge to: Home/Self Care Discharge Instructions Additional Discharge Routines: Stained Glass Glazier Helper Follow -Up, Add. instructions )( Diet: Regular )( Additional instructions: no driving while on pain meds or with fractured arm. No lifting with right arm. Follow-up Appointments Consulting provider 1: Provider 1: Rahat Lake MD Specialty: Orthopaedic Surgery Consult follow up timeframe: In 1-2 weeks at 0633 RPT #:[id number] END OF REPORT 2020-05-[address] [facility] 23:15:00-00:00 [facility] ([facility]) Trauma - History Physical REPORT#:[id number] REPORT STATUS: Signed DATE:05/20/20 TIME: 2314 PATIENT: IRVING REHMAN UNIT #: [id number] ROOM/BED: [place] [address] : 48 AGE: 69 SEX: F ATTEND: Kenyon Castro MD ADM AUTHOR: Kenyon Castro MD * ALL edits or amendments must be made on the [employer]/computer document * History of Present Illness HPI Chief complaint: 05/20/2020 fall, nondisplaced intra-pham cular fracture distal radius and ulnar styloid HPI: Ms. Rehman is a 69yo woman who was transferred h ere from [facility] for a right wrist fracture. She was in the attic when she tripped and fell landing on her right arm to break her fall. She had immediate onset of moderate bony pain in the right wrist that did n ot radiate. It hurt to move, was better with pain medications. She was found to have the above noted fractures. Of note she tested positive for Covid-19 two we eks ago when her also became ill with it. She has been asymptomatic fr om a Covid-19 perspective. Also she is pseudocholinesterase deficie nt and has been tested for the genetic defect -- she is positive for the deficiency. History Past medical history: Reports: Atrial fib/flutter, Diabetes mellitus ( non-insulin dependent), Hypertension, Dyslipidemia, Thyroid disorder (hy pothyroid). Additional medical history: Pseudocholinesterase deficiency, diverticulitis, glaucoma Past surgical history: Reports: Cholecystectomy (and ERCP), Hysterectom y, Tonsillectomy. Additional surgical history: cardiac ablation, carpal tunnel surgery Additional family history: Denies any pertinent family history. Alcohol use: Denies EtOH use Drug use: Denies recreational drugs Smoking status for patients 13 years old or olde r: Never Smoker Additional social history: , lives with her . 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 Review of Systems Constitutional: Denies: chills, fatigue, fev er, generalized weakness, lethargy, malaise, recent wt loss, other. Skin: Denies: abrasion, bruising, contusion, diaphores is, ecchymosis, itching, laceration, rash, swelling, other. Allergy/Immun: Denies: allergic reaction, anaphylaxis, hives, i tching, rhinorrhea, sneezing, other. Eyes: Denies: redness, discharge, visual loss/blurred, itching, diplopia, eye pain, photophobia, swelling, other. ENT: Denies: ear drainage, ear ringing, earache, hear ing loss, mouth pain, nasal congestion, nose bleeding, sinus problem, sore t hroat, throat pain, throat swelling, tongue pain, tongue swelling, toothach e, voice change, other. Respiratory: Denies: MARIE (dyspnea on exertion), hemoptysis, n on productive cough, parox nocturnal dyspnea, pleurisy, pleuritic pain, pneumonia, productive cough (sputum ), SOB, wheezing, other. Cardiovascular: Denies: chest pain, MARIE (dyspnea on exer tion), edema, orthopnea, palpitations, parox nocturnal dyspnea, other. GI: Denies: abdominal pain, anorexia, constipation, diarrhea, dysphagia, GERD, hematemesis, hematochezia, h iatal hernia, melena, nausea, rectal pain, vomiting, other. : Denies: dysuria, flank pain, frequency, hematuri a, nocturia, pelvic pain, , urgency, urinary retention, vaginal bl eeding, vaginal discharge, other. Musculoskeletal: Extremity pain: Reports: right upper. Denies: left upper, left lower, right lower, bilateral. Heme: Denies: adenopathy, bleeding, bruising, petechia e, other. Endocrine: Denies: cold intolerance, heat intolerance, poly dipsia, polyphagia, polyuria, weight gain, weight loss, other. Neuro: Denies: bladder dysfunction, bowel dysfunction, change in LOC, confusion, dizziness, focal weakness, gait problem, headach e, lightheaded, numbness, seizure, slurred speech, spinning sensation, syn cope, unable to speak, vision change, weakness, other. Psych: Denies: agitation, anxiety, auditory hallucinati on, change in mental status, confusion, delusional, depre ssion, homicidal ideation, hostile, insomnia, stress , suicidal ideation, visual hallucination, other . Physical Exam VS/I O Last Documented: Result Date Time Pulse Ox 99 05/20 2153 B/P 156/64 05/20 2153 B/P Mean 94 05/20 2153 O2 Delivery Room air 05/20 2153 Temp 99.1 05/20 2153 Pulse 76 05/20 2153 Resp 16 05/20 2153 Patient Weight Weight (lb): Weight (oz): Weight (kg): 77.273 General appearance: alert, awake, oriented, no a cute distress, pleasant, conversational, mental status normal, no respira tory distress Fracture: right distal intra-articular radius and ulnar fr acture Head/Eyes: atraumatic, normocephalic, PERRL ENT: atraumatic, no malocclusion Neck: atraumatic, full range of motion, non-tend er Cardiovascular: normal heart sounds, regular rat e rhythm Respiratory/chest: aerating well, atraum atic, clear to auscultation, symmetric expansion, no distress Abdomen: soft, non-tender, n o guarding, no rebound, no distention, normal bowel sounds Back/Spine: Back: atraumatic, inspection NL Pelvis: atraumatic, pelvis stable Extremities: dry, moves all, right wrist swellin g and pain Neuro/FIELD ADMINISTRATIVE ASSISTANT: alert, oriented X 3 Carmina Coma Score: Holland Coma Score: Response Value Patient intubated? no Carmina eyes: eyes open spontaneously 4 Holland speech: oriented 5 Holland motor: obeys commands 6 Total 15 Results Findings/Data: OUtside imaging: Right wrist: Comminuted impacted nondisplaced intra-articular fracture of the distal radius. Comminuted fractu re of the ulnar styloid. Diagnosis, Assessment Plan Free Text DxA P Notes Free Text DxA P Notes: 05/20/2020 admit of a 69yo w rubi with pseudocholinesterase deficiency, HTN, afib s/p ablation, HLP, hypothyro idism, non insulin dependent DM who had a mechanical fall and is found to have: 1. right distal radius intraarticular fracture 2. right distal ulnar styloid fracture Plan admit to trauma service to surgical eli. Neuro: Tiered pain management system. MS: Ortho consult for the fracture. - Given her pseudocholinesterase deficiency she would benefit from being the first case of the day on an anesthesia machine t o minimize her risks of developing malignant hyperthermia. SBIRT: CAGE questionnaire pending. Prophylaxis: SCDs and Lovenox. Dispo: Home once cleared. at 5741 RPT #:[id number] END OF REPORT 2020-05-[address] [facility] 23:05:00-00:00 [facility] ([facility]) EMERGENCY PROVIDER REPORT REPORT#:[id number] REPORT STATUS: Signed DATE:05/20/20 TIME: 2304 PATIENT: IRVING REHMAN UNIT #: [id number] ROOM/BED: [place] AGE: 69 SEX: F PCP PHYS: No Primary or Family Ph ysician SERVICE AUTHOR: Cheng Childs MD * ALL edits or amendments must be made on the [employer]/computer document * HPI-Should/Arm Prob/Inj General Confirmed Patient Yes Initial Greet Date/Time 05/20/202202 Presentation Chief Complaint Arm injury R, Arm pain R Free Text HPI Notes Free Text HPI Notes 69-year-old female presents as a transfer from [facility]. Patient reportedly was in her attic earlier today and thapa d a mechanical fall with outstretched right arm. Has a ulnar styloid frac ture and a right radial fracture with intra-articular extension. Was transferred here for higher level of care. Of note patient is Covid positive. Has been 14 days since her positive test. Patient has been asymptomatic. But her w as symptomatic which prompted her to test herself. Review of Systems ROS Statements All systems rev neg except as marked. Free Text ROS Notes Free Text ROS Notes -Constitutional: No fever, chills, fatigue -EENT: No runny nose, sore throat -Cardiovascular: No chest pain, palpitations, sy ncope -Respiratory: No shortness of breath, cough, whe ezing -GI: No abdominal pain, nausea, vomiting, diarrh ea -: No pain or burning with urination, no blood in the urine -Musculoskeletal: No joint pain, muscle pain, ba ck pain, reports right wrist pain -Skin: No rash, abrasion -Neurologic: No change in LOC, confusion, numbne ss or tingling -Psychiatric: No suicidal or homicidal ideations Past Medical History - Adult Stated Complaint TRANSFER FROM [place] FOR RIGHT WRIST FRACTURE Allergies Coded Allergies: succinylcholine (Severe, FLAT LINE 05/20/20) Penicillins (Intermediate, THROAT ITCHES 0) iodine (Intermediate, THROAT ITCHES 05/20/20) Calculated suicide risk level: No risk Smoking status for patients 13 years old or olde r: Never Smoker Physical Exam Vital Signs Vital Signs First Documented: Result Date Time Pulse Ox 99 05/20 2153 B/P 156/64 05/20 2153 B/P Mean 94 05/20 2153 O2 Delivery Room air 05/20 2153 Temp 37.3 05/20 2153 Pulse 76 05/20 2153 Resp 16 05/20 2153 Last Documented: Result Date Time Pulse Ox 99 05/20 2153 B/P 156/64 05/20 2153 B/P Mean 94 05/20 2153 O2 Delivery Room air 05/20 2153 Temp 37.3 05/20 2153 Pulse 76 05/20 2153 Resp 16 05/20 2153 Review of Vital Signs Reviewed Free Text PE Notes Free Text PE Notes Gen: Well appearing, well hydrated, cooperative Head: Normocephalic, atraumatic Eyes: EOMI, normal conjunctiva ENT: MMM, airway patent Neck: supple, no LAD Lungs: CTAB no R/R/W Heart: RRR, normal pulses Abd: S/NT/ND, normal BS, no rebound or guarding Ext: Right wrist deformity, right hand neurovascular intact in all distributions Neuro: A O x 3, CN II-XII gr ossly intact. Strength and sensation grossly intact Psych: Normal mood and affect. Interpretation Diagnostics Lab Results Interpretation Lab Imaging Statement Laboratory radiographic studies reviewed and con sidered in the medical decision-making. Re-Evaluation MDM Free Text MDM Notes Free Text MDM Notes Dr. Castro notified about patient at 2241. Will se e patient and provide recommendations. X-ray from outside facility shows the patient thapa s an ulnar styloid and radius fracture with intra-articular extension. Patient neurovascularly intact in affected hand. Will splint. Dr. Castro will admit to his service. ED Course Medication(s) Ordered Medication(s) Ordered: Blood Formation,Coagulation Sig/Valentina Start time Last Medication Dose Route Stop Time Status Admin Enoxaparin Sodium 30 MG Q12HR 05/21 0900 AC SUBQ 06/20 0859 Central Nervous System Agents Sig/Valentina Start time Last Medication Dose Route Stop Time Status Admin Acetaminophen 650 MG Q6H PRN PRN 05/20 2315 AC PO 06/19 2314 Hydrocodone Bitart/ 1 TAB Q4H PRN PRN 05/20 231 5 AC Acetaminophen PO 05/25 2314 Morphine Sulfate 4 MG Q4H PRN PRN 05/20 2315 AC IV 05/25 2314 Tramadol HCl 50 MG Q4H PRN PRN 05/20 2315 AC PO 05/25 2314 Gastrointestinal Drugs Sig/Valentina Start time Last Medication Dose Route Stop Time Status Admin Polyethylene Glycol 17 GM DAILY 05/21 0900 AC PO 06/20 0859 Ondansetron HCl 4 MG Q4H PRN PRN 05/20 2315 AC IV 06/19 2314 Patient Discharge Departure Vital Signs/Condition Vital Signs First Documented: Result Date Time Pulse Ox 99 05/20 2153 B/P 156/64 05/20 2153 B/P Mean 94 05/20 2153 O2 Delivery Room air 05/20 2153 Temp 37.3 05/20 2153 Pulse 76 05/20 2153 Resp 16 05/20 2153 Last Documented: Result Date Time Pulse Ox 99 05/20 2153 B/P 156/64 05/20 2153 B/P Mean 94 05/20 2153 O2 Delivery Room air 05/20 2153 Temp 37.3 05/20 2153 Pulse 76 05/20 2153 Resp 16 05/20 2153 All vital signs available at the time of this en try have been reviewed. Condition Stable Clinical Impression Clinical Impression Primary Impression: Fracture of ulnar styloid Secondary Impressions: Fall, Radius fracture Disposition Decision Admit Admit Physician Name Kenyon Castro MD Admit Physician Trauma Surgeon Request Time 2314 Request Date 05/20/20 )( Admission Accepts Yes Discharge/Care Plan Counseled Regarding Imaging studies Admit Note I have spoken with the patie nt and/or caregivers. I have explained the patient's condition, diagnoses and marilia atment plan based on the information available to me at this time. I have answered the patient's and/ or caregiver's questions and addressed any concerns. The patient and/or careg christiana have as good an understanding of the patient 's diagnosis, condition and treatment plan as can be expected at this point. The patient has been stabilized within the capability of the emergency department. The patient wi ll be transported for further care and management or will be moved to an observation or inpatient service. I have communicated with the staff or medical p ractitioner taking over this patient's care. Electronically Signed by Cheng Childs MD on 0 at 0037 RPT #:[id number] END OF REPORT 2020-01-18 EXAM: CT CERVICAL SPINE WITHOUT CONTRAST [facility] 05:35:16-00:00 DATE: 01/18/2020 Center INDICATION: 69 years old Fem kiarra patient with history of - neck pain after syncopal episode. COMPARISON: None. TECHNIQUE: Volumetric CT acq uisition of the cervical spine without contrast. Computer reformatted coronal and sagittal images are also provided. Axial images are available in both bone and soft tissue algorithm. FINDINGS: Vertebral alignment is shankar l. There is no evidence of acute fracture or subluxation. Vertebral heights are maintained. Moderate disc height loss at the level of C6-C7, remainder of the disc heights are preserved. Posterior disc osteophyte co mplex at C6-C7 resulted in mild spinal canal stenosis, otherwise no evidence of bony spinal canal stenosis at other levels. Moderate left and mild right at the level of C5-C6 and C6-C7 neural foraminal stenosis from uncovertebral and facet joint hypertrophy. The prevertebral and paraspi nous cervical soft tissues appear grossly unremarkable. IMPRESSION: 1. No acute traumatic abnormality within the cer vical spine. 2. Moderate degenerative spondylitic changes at C6-C7 as detailed above. 2014-05-03 EXAM: XR LUMBAR SPINE 2 VIEWS [facility] 09:01:07-00:00 DATE: 2014-05-03 0840 hours INDICATION: 724.2 Lumbago, 8 05.4 Closed Fracture of Lumbar Vertebra without Mention of Spinal Cord Injury COMPARISON: March 01, 2014 TECHNIQUE: AP and lateral radiographs of the lum bar spine FINDINGS: 5 lumbar-type, non rib-bearing vertebral [...] of the L3 vertebral body compression fracture. 2014-03-01 EXAM: XR LUMBAR SPINE 2 VIEWS [facility] 07:59:00-00:00 DATE: 03/01/2014 at 0739 hours INDICATION: Closed Fracture of Lumbar Vertebra without Mention of Spinal Cord Injury . COMPARISON: CT abdomen from 01/13/2014 TECHNIQUE: AP, coned lateral and lateral radiogr aphs of the lumbar spine DISCUSSION: 5 lumbar-type, [...] Grade 1 anterolisthesis at the L3-L4 level. 2014-01-16 [facility] 2014-01-16 08:22:00 [facility] 08:10:00-00:00 Center COMPARISON: Yesterday CLINICAL INDICATION: Trauma DISCUSSION: Lungs are withou t airspace disease. No pleural effusions or pneumothorax. Cardiac silhouette and mediastinum are unchanged. A pellet is again seen overlying left lower thorax. IMPRESSION: No significant interval change. 2014-01-15 [facility] 2014-01-15 10:33:00 [facility] 08:35:00-00:00 Center COMPARISON: Yesterday CLINICAL INDICATION: Trauma DISCUSSION: Minimal platelik e atelectasis is seen within right midlung. No pleural effusions or pneumothorax. A pellet is again seen overlying left lower thorax. 2014-01-14 [facility] 2014-01-14 14:57:00 [facility] 14:10:00-00:00 Center COMPARISON: Yesterday CLINICAL INDICATION: Trauma DISCUSSION: Platelike atelec tasis is seen within retrocardiac regions. Remainder of lungs are without airspace disease. No pleural effusions or pneumothorax. Cardiac silhouette and mediastinum are withi n normal limits. A metallic pellet overlies left lower thorax. IMPRESSION: Subsegmental atelectasis within lowe r lungs. 2014-01-13 EXAM: CT ABDOMEN AND PELVIS WITH CONTRAST [facility] 18:15:00-00:00 Center DATE:Jan 13, 2014 06:43:00 PM INDICATION: Trauma. TECHNIQUE: Following intrave nous administration of 99 mL Visipaque 320, axially oriented images were obtained from the lung bases through the ischial tuberosities. Delayed imaging was then performed thr ough the kidneys, using a ra diation reduction technique. Sagittal and coronal reformat images of the abdomen and pelvis are provided. COMPARISON: None available. FINDINGS: There is a small right pleur al effusion. Note made of bibasilar subsegmental atelectasis. There is a tiny focus of pneumothorax adjacent to the costochondral separation at the right seventh rib. There i s no thoracic or abdominal a denopathy. There are small calcifications within a subcarinal [...] is laminectomy at L5-S2. There is abnormal strai ghtening of the lumbar spine at this level. Posterior disc herniations are [...] finding [address] Jesus sandoval 727h.
[2023-01-06 19:38] LABS: Absolute Lymphocytes (CBC) 1.6 K/uL (0.7-4.9); Hematocrit 32.2 % (36.0-45.0); Lymphocytes % 8.7 % (15.3-44.8); MCV 96.4 fL (80-100); RBC Red Blood Cell Count 3.34 M/uL (3.86-4.86)
[2023-01-06] MEDS ORDERED: Ringers Lactate 1,000 ML IV ONE (19:43)
[2023-01-06 19:53] LABS: Potassium 3.9 mEq/L (3.5-5.1); Troponin High Sensitivity 13.5 pg/mL (<58.9)
--- NOTE | 2023-01-06 20:21 | ER ---
Nurse's Notes [facility] Name: Marah Lee Age: 72 yrs Sex: Female : 1950 Arrival Date: 01/06/2023 Time: 19:03 Bed 17 Private MD: Diagnosis: Constipation, unspecified;Dizziness and giddiness Presentation: 01/06 19:08 Chief complaint: Patient states: that she has been constipation X a couple days. Pt cm10 states "I know I am constipated because yesterday I had to dig it out.". Coronavirus screen: Vaccine status: Patient reports being unvaccinated. Ebola Screen: Patient denies travel to an Ebola-affected area in the 21 days before illness onset. No symptoms or risks identified at this time. Initial Sepsis Screen: Does the patient meet any 2 criteria? No. Patient's initial sepsis screen is negative. Does the patient have a suspected source of infection? No. Patient's initial sepsis screen is negative. Risk Assessment: Do you want to hurt yourself or someone else? Patient reports no desire to harm self or others. Onset of symptoms was January 06, 2023. 19:08 Method Of Arrival: Wheelchair cm10 19:08 Acuity: GIANCARLO 3 cm10 Historical: - Allergies: 19:09 Iodine; cm10 19:09 PENICILLINS; cm10 19:09 SUCCINYLCHOLINE; cm10 - PMHx: 19:09 Atrial Fib; Diabetes - NIDDM; Diverticulitis; cm10 - Immunization history:: Adult Immunizations unknown. - Social history:: Smoking status: Patient denies any tobacco usage or history of. Screenin:20 [facility] ED Fall Risk Assessment (Adult) History of falling in the last 3 months, nj1 including since admission No falls in past 3 months (0 pts) Confusion or Disorientation No (0 pts) Intoxicated or Sedated No (0 pts) Impaired Gait No (0 pts) Mobility Assist Device Used No (0 pt) Altered Elimination No (0 pt) Score/Fall Risk Level 0 - 2 = Low Risk Oriented to surroundings, Maintained a safe environment, Hourly rounding (assess needs \\T\\ fall precautionary measures) done. Abuse screen: Denies threats or abuse. Denies injuries from another. Nutritional screening: No deficits noted. Tuberculosis screening: No symptoms or risk factors identified. Assessment: 19:10 General: Appears in no apparent distress. uncomfortable, Behavior is calm, cooperative, nj1 appropriate for age. Neuro: Level of Consciousness is awake, alert, obeys commands, Oriented to person, place, time, situation. Cardiovascular: Patient's skin is warm and dry. Respiratory: Airway is patent Respiratory effort is even, unlabored. GI: Reports constipation. 19:10 Pain: Denies pain. nj1 20:00 Reassessment: Patient appears in no apparent distress at this time. Patient and/or nj1 family updated on plan of care and expected duration. Pain level reassessed. Patient is alert, oriented x 3, equal unlabored respirations, skin warm/dry/pink. Patient denies pain at this time. Vital Signs: 19:08 BP 116 / 62; Pulse 101; Resp 16; Temp 98.3(O); Pulse Ox 100% ; Pain 0/10; cm10 20:00 BP 145 / 67; Pulse 84; Resp 18; Pulse Ox 100% on R/A; Pain 0/10; nj1 19:08 Pain Scale: Adult cm10 20:00 Pain Scale: Adult nj1 ED Course: 19:06 Patient arrived in ED. nj1 19:07 Taj Brunson MD is Attending Physician. jr11 19:09 Triage completed. cm10 19:10 Arm band placed on Patient placed in an exam room, on a stretcher. cm10 19:10 Patient has correct armband on for positive identification. Bed in low position. Call [facility] light in reach. Adult w/ patient. 19:10 Provided Education on: Fall precautions.. nj1 19:19 eDa Chew RN is Primary Nurse. nj1 20:30 No provider procedures requiring assistance completed. IV discontinued, intact, nj1 bleeding controlled. Administered Medications: 19:40 Drug: Lactated Ringers Solution IV 500 ml Route: IV; Rate: 999 bolus; Site: right nj1 antecubital; 20:25 Follow up: Response: No adverse reaction; IV Status: Completed infusion; IV Intake: nj1 500ml 20:25 Drug: Lactulose PO 20 grams Volume: 30 ml; Route: PO; nj1 20:30 Follow up: Response: No adverse reaction nj1 Medication: 20:30 VIS not applicable for this client. nj1 Intake: 20:25 IV: 500ml; Total: 500ml. nj1 Outcome: 20:20 Discharge ordered by . 11 20:30 Discharged to home via wheelchair, with family. nj1 20:30 Condition: stable 20:30 Discharge instructions given to patient, family, Instructed on discharge instructions, follow up and referral plans. medication usage, Demonstrated understanding of instructions, follow-up care, medications, Prescriptions given X 1. 20:35 Patient left the ED. nj1 Signatures: Taj Brunson MD MD jr11 Dea Chew RN RN nj1 Maegan Dang RN RN cm10 Corrections: (The following items were deleted from the chart) 20:41 20:41 Patient left the ED. nj1 nj1
--- NOTE | 2023-01-06 20:21 | EDPHYS ---
Physician Documentation [facility] Name: Marah Lee Age: 72 yrs Sex: Female : 1950 Arrival Date: 01/06/2023 Time: 19:03 Bed 17 Private MD: ED Physician aTj Brunson HPI: 01/06 19:21 Patient is a 72-year-old female that had back surgery earlier this month, last dose of jr11 pain medicine was 1 week ago. Patient is here because she has felt constipated, has a rectal prolapse and felt hard stool so she decided to come in for help. Patient states she is not having any abdominal pain, she was just straining in the toilet and felt lightheaded, denies any chest pain shortness of breath, back to baseline.. Historical: - Allergies: 19:09 Iodine; cm10 19:09 PENICILLINS; cm10 19:09 SUCCINYLCHOLINE; cm10 - PMHx: 19:09 Atrial Fib; Diabetes - NIDDM; Diverticulitis; cm10 - Immunization history:: Adult Immunizations unknown. - Social history:: Smoking status: Patient denies any tobacco usage or history of. ROS: 19:21 All other systems are negative. jr11 Exam: 19:21 Constitutional: This is a well developed, well nourished patient who is awake, alert, jr11 and in no acute distress. Head/Face: Normocephalic, atraumatic. Neck: Trachea midline, no thyromegaly or masses palpated, and no cervical lymphadenopathy. Supple, full range of motion without nuchal rigidity, or vertebral point tenderness. No Meningismus. Chest/axilla: Normal chest wall appearance and motion. Nontender with no deformity. No lesions are appreciated. Cardiovascular: Regular rate and rhythm with a normal S1 and S2. No gallops, murmurs, or rubs. Normal PMI, no JVD. No pulse deficits. Abdomen/GI: Soft, non-tender, with normal bowel sounds. No distension or tympany. No guarding or rebound. No evidence of tenderness throughout. MS/ Extremity: Pulses equal, no cyanosis. Neurovascular intact. Full, normal range of motion. Neuro: Awake and alert, GCS 15, oriented to person, place, time, and situation. No gross motor or sensory deficits. Vital Signs: 19:08 BP 116 / 62; Pulse 101; Resp 16; Temp 98.3(O); Pulse Ox 100% ; Pain 0/10; cm10 20:00 BP 145 / 67; Pulse 84; Resp 18; Pulse Ox 100% on R/A; Pain 0/10; nj1 19:08 Pain Scale: Adult cm10 20:00 Pain Scale: Adult nj1 MDM: 19:17 Patient medically screened. [facility] 19:21 Differential Diagnosis Patient is a 72-year-old asking for help for constipation, will jr11 recommend MiraLAX and also fleets enema. With the lightheadedness, will hydrate 500 of saline, likely secondary to the strain. No chest pain shortness of breath no concern for PE or ACS. Heart rate to my exam was in her 90s, no concern for arrhythmia.. Data reviewed: vital signs, nurses notes. 19:50 ED course: EKG interpreted by me shows normal sinus rhythm, normal axis, normal jr11 intervals, no acute ST changes.. 20:18 ED course: No concern for heart failure, patient states that home health looks at her jr11 wound, no concern for infection. No fever, lab work grossly within normal limits. Patient states she wants to try the MiraLAX, return if worsening for CT scan, no concern for obstruction she is passing gas below no nausea no vomiting.. 01/06 19:18 Order name: Basic Metabolic Panel; Complete Time: 20:07 [facility] 01/06 19:18 Order name: CBC with Diff; Complete Time: 20:07 [facility] 01/06 19:18 Order name: NT PRO-BNP; Complete Time: 20: [facility] 01/06 19:18 Order name: Troponin HS; Complete Time: 20: [facility] 01/06 19:18 Order name: EKG; Complete Time: 19:19 [facility] 01/06 19:18 Order name: Cardiac monitoring; Complete Time: 20:23 [facility] 01/06 19:18 Order name: EKG - Nurse/Tech; Complete Time: 19:50 [facility] 01/06 19:18 Order name: IV Saline Lock; Complete Time: 19:40 [facility] 01/06 19:18 Order name: Labs collected and sent; Complete Time: 19:40 [facility] Administered Medications: 19:40 Drug: Lactated Ringers Solution IV 500 ml Route: IV; Rate: 999 bolus; Site: right nj1 antecubital; 20:25 Follow up: Response: No adverse reaction; IV Status: Completed infusion; IV Intake: nj1 500ml 20:25 Drug: Lactulose PO 20 grams Volume: 30 ml; Route: PO; nj1 20:30 Follow up: Response: No adverse reaction nj1 Disposition Summary: 01/06/23 20:20 Discharge Ordered Location: Home [facility] Condition: Stable [facility] Diagnosis - Constipation, unspecified jr11 - Dizziness and giddiness jr11 Discharge Instructions: - Discharge Summary Sheet jr11 - Dizziness jr11 - Constipation, Adult, [id number] [facility] Forms: - Medication Reconciliation Form jr11 - Thank You Letter jr11 - Antibiotic Education 11 - Prescription Opioid Use [facility] - Patient Portal Instructions.[place] [id number] Prescriptions: - Golytely [id number] -5.86 gram Oral Recon Soln - take 240 milliliter by ORAL route every 10 minutes until clear; 4000 jr11 milliliter; Refills: 0, Product Selection Permitted Signatures: Dispatcher [employer] Taj Reyes MD MD jr11 Dea Chew RN RN nj1 Maegan Dang RN RN cm10
[2023-01-06] MEDS ORDERED: LACTULOSE 20 GM/30 ML UCUP ONE (20:34)
[2023-01-06 22:54] VITALS: TEMP 98.3; O2SAT 100
[2023-01-06 22:56] VITALS: BP 145/67
--- NOTE | 2023-01-07 17:03 | EKG ---
Test Date: 2023-01-06 Test Time: 19:47:43 [employer] Manager: MARY LOUW MEASUREMENT RESULTS: Intervals: Rate: 80 VT: 124 QRSD: 80 QT: 406 QTc: 468 [place]: P: 100 VT: 124 QRS: 80 T: 73 INTERPRETIVE STATEMENTS: Normal sinus rhythm Normal ECG Compared to ECG 01/17/2020 09:01:01 No significant changes Electronically Signed On 01-07-23 17:02:28 CDT by Sumeet Gallagher
== END 2023-01-06 20:41 | disposition home or self-care (01) ==
LOC: ER 19:03
DX: K59.00 Constipation, unspecified (principal); R42 Dizziness and giddiness; Z88.0 Allergy status to penicillin; Z88.8 Allergy status to other drugs, medicaments and biological substances; Z91.048 Other nonmedicinal substance allergy status
CPT/HCPCS: 93005; 85025; 80048; 36415; 84484; 83880; 96360; 99284; J7120